=== PATIENT | female | born 1945 | race Caucasian/White ===

== ENCOUNTER 2019-07-12 12:20 | Inpatient (IN) | payer MEDICARE, MEDICAID ==
[~2019-07-12] VITALS: Ht 157.5 cm; Wt 65.3 kg
[2019-07-12 12:25] VITALS: BP 110/57
--- NOTE | 2019-07-12 12:32 | NUR ---
ED Nurse Note: Patient brought into ED from home by ambulance from [facility] due to WBC of 22.74 and right lower extremity cellulitis. per EMS, patient started on doxycycline yesterday. patient is alert awake, shouting and not cooperative at the moment. patient changed into a hospital gown, patient on a air sampling and monitoring.
[2019-07-12] MEDS ORDERED: LORazepam Inj 2mg/ml 1ml IV ONE (12:45)
[2019-07-12] MEDS ORDERED: Haloperidol 5mg/ml Inj IM ONE (12:45)
--- NOTE | 2019-07-12 12:49 | Emergency Room Report ---
History of Present Illness General Chief Complaint: Skin Rash/Abscess Source: Patient, Medical Record, EMS Present Illness HPI Patient is a 74-year-old female past medical history of cellulitis of the left lower leg, gait abnormalities, cognitive communication deficit, COPD, heart failure, hypertension, diabetes, Parkinson's, hyperlipidemia, arthritis, GERD, anemia, paranoid schizophrenia, anxiety, pseudobulbar affect, osteoporosis and chronic kidney disease who was brought from her correction for right lower extremity cellulitis and elevated white blood cell count. Patient is a poor historian and just keeps screaming that she is hungry. Unable to obtain further history at this time. COVID-19 risk:Travel to affect: No Allergies: Coded Allergies: BUPROPION (Verified Allergy, Unknown, 07/12/19) BUSPIRONE (Verified Allergy, Unknown, 07/12/19) FLUOXETINE (Verified Allergy, Unknown, 07/12/19) LURASIDONE (Verified Allergy, Unknown, 07/12/19) Review of Systems All Other Systems: limited Physical Exam Vital Signs Date Time Temp Pulse Resp B/P (MAP) Pulse Ox O2 Delivery O2 Flow Rate FiO2 07/12/19 12:25 97.9 76 16 110/57 (74) 95 Room Air Sp02 EP Interpretation: reviewed, normal General Appearance: other - Repeatedly screaming she is able to answer some questions but states states that she is hungry Head: normocephalic, atraumatic Eyes: bilateral eye normal inspection, bilateral eye PERRL ENT: hearing grossly normal, normal pharynx, no angioedema, normal voice Neck: full range of motion, supple/symm/no masses Cardiovascular #1: regular rate, rhythm, no edema Gastrointestinal: normal bowel sounds, non tender, soft, non-distended, no guarding, no rebound Rectal: deferred Musculoskeletal: other - Right mid anterior lower leg to openings with purulent discharge mild erythema around it and tenderness to palpation right calf greater than left calf Neurologic: alert, agency manager III-XII nml as tested Psychiatric: anxious, other - Abnormal mood and affect Skin: no rash Lymphatic: no adenopathy Medical Decision Making Diagnostic Impression: Primary Impression: Cellulitis Additional Impressions: Anemia New onset a-fib ER Course While in the emergency department the patient's heart rhythm change. It appears that she is gone into atrial fibrillation. Patient has no documented history of atrial fibrillation. I have ordered for 325 mg of aspirin as well as 10 mg of IV Cardizem. Patient cultured in the ER. Ultrasound negative for DVT. Patient started on vancomycin and cefepime for her right lower extremity cellulitis. Patient has white count of 21,000 with a normal lactate. Laboratory Tests Test 07/12/19 12:33 07/12/19 13:11 Magnesium Level 2.1 MG/DL (1.8-2.4) 2.1 MG/DL (1.8-2.4) White Blood Count 21.6 K/UL (4.8-10.8) H Red Blood Count 3.62 M/UL (4.20-5.40) L Hemoglobin 10.0 G/DL (12.0-16.0) L Hematocrit 30.6 % (37.0-47.0) L Mean Corpuscular Volume 85 FL (80-99) Mean Corpuscular Hemoglobin 27.6 PG (27.0-31.0) Mean Corpuscular Hemoglobin Concent 32.6 G/DL (32.0-36.0) Red Cell Distribution Width 14.0 % (11.6-14.8) Platelet Count 367 K/UL (150-450) Mean Platelet Volume 5.7 FL (6.5-10.1) L Neutrophils (%) (Auto) % (45.0-75.0) Lymphocytes (%) (Auto) % (20.0-45.0) Monocytes (%) (Auto) % (1.0-10.0) Eosinophils (%) (Auto) % (0.0-3.0) Basophils (%) (Auto) % (0.0-2.0) Differential Total Cells Counted 100 Neutrophils % (Manual) 84 % (45-75) H Lymphocytes % (Manual) 11 % (20-45) L Monocytes % (Manual) 5 % (1-10) Eosinophils % (Manual) 0 % (0-3) Basophils % (Manual) 0 % (0-2) Band Neutrophils 0 % (0-8) Platelet Estimate Adequate Platelet Morphology Normal Erythrocyte Sedimentation Rate Pending Prothrombin Time 10.0 SEC (9.30-11.50) Prothrombin Time INR 0.9 (0.9-1.1) Activated Partial Thromboplast Time 30 SEC (23-33) Sodium Level 139 MMOL/L (136-145) Potassium Level 3.9 MMOL/L (3.5-5.1) Chloride Level 100 MMOL/L (98-107) Carbon Dioxide Level 31 MMOL/L (21-32) Anion Gap 8 mmol/L (5-15) Blood Urea Nitrogen 14 mg/dL (7-18) Creatinine 0.7 MG/DL (0.55-1.30) Estimated Glomerular Filtration Rate > 60 mL/min (>60) Glucose Level 114 MG/DL (74-106) H Lactic Acid Level 0.90 mmol/L (0.4-2.0) Calcium Level 9.2 MG/DL (8.5-10.1) Total Bilirubin 0.3 MG/DL (0.2-1.0) Aspartate Amino Transferase (AST) 16 U/L (15-37) Alanine Aminotransferase (ALT) 16 U/L (12-78) Alkaline Phosphatase 83 U/L (46-116) Total Creatine Kinase 102 U/L (26-308) Creatine Kinase MB 2.2 NG/ML (0.0-3.6) Creatine Kinase MB Relative Index 2.1 C-Reactive Protein, Quantitative Pending Total Protein 7.9 G/DL (6.4-8.2) Albumin 3.1 G/DL (3.4-5.0) L Globulin 4.8 g/dL Albumin/Globulin Ratio 0.6 (1.0-2.7) L EKG Diagnostic Results EKG Time: 13:51 EP Interpretation: MD Cami Rate: normal Rhythm: NSR ST Segments: no acute changes ASA given to the pt in ED: No Rhythm Strip Diag. Results Rhythm Strip Time: 13:51 EP Interpretation: yes - MD Cami Rate: 122 Rhythm: no PVC's, no ectopy, other - afrib rvr Last Vital Signs Date Time Temp Pulse Resp B/P (MAP) Pulse Ox O2 Delivery O2 Flow Rate FiO2 07/12/19 12:25 97.9 76 16 110/57 (74) 95 Room Air Disposition: ADMITTED INPATIENT Condition: Critical Physician Consult: Dr. Julissa Booth to admit to Telemetry Jordyn Almanza M.D. Jul 12, 2019 12:49
[2019-07-12] MEDS ORDERED: Vancomycin 1.25gm/NS Premix 275 ML IVPB SCH (13:00)
--- NOTE | 2019-07-12 13:27 | NUR ---
ED Nurse Note: U/S at bedside.
[2019-07-12 13:30] LABS: HEMATOCRIT 30.6 % (37.0-47.0); MEAN CORPUSCULAR VOLUME 85 FL (80-99); PLATELET COUNT 367 K/UL (150-450); RED BLOOD COUNT 3.62 M/UL (4.20-5.40); WHITE BLOOD COUNT 21.6 K/UL (4.8-10.8)
[2019-07-12] MEDS ORDERED: Vancomycin 1.25 GM in NS 275 ML IVPB ONE (13:30)
[2019-07-12 13:41] LABS: ANION GAP 8 mmol/L (5-15); BLOOD UREA NITROGEN 14 mg/dL (7-18); CALCIUM 9.2 MG/DL (8.5-10.1); CARBON DIOXIDE 31 MMOL/L (21-32); CHLORIDE 100 MMOL/L (98-107); CREATININE 0.7 MG/DL (0.55-1.30); POTASSIUM 3.9 MMOL/L (3.5-5.1); SODIUM 139 MMOL/L (136-145)
[2019-07-12 13:44] LABS: INR 0.9 (0.9-1.1)
[2019-07-12] MEDS ORDERED: dilTIAZem HCl 25mg/5ml Inj IVP ONE (13:45)
--- NOTE | 2019-07-12 13:50 | Diagnostic Imaging Report ---
Indication: Shortness of breath Technique: One view of the chest Comparison: None Findings: There is mild interstitial prominence bilaterally. There is central bronchial wall thickening. The heart size is normal. There is some atelectasis at the left lung base. The heart size is normal. No focal airspace consolidation. No definite effusions. Impression: Very mild interstitial prominence and central bronchial wall thickening, acuity indeterminate. Suspect on the basis of senescent/chronic changes. However, possibility of infectious interstitial disease or pulmonary edema should also be considered Negative for infiltrate
[2019-07-12 13:56] LABS: ALANINE AMINOTRANSFERASE 16 U/L (12-78); ALBUMIN 3.1 G/DL (3.4-5.0); ALBUMIN/GLOBULIN RATIO 0.6 (1.0-2.7); ALKALINE PHOSPHATASE 83 U/L (46-116); ASPARTATE AMINO TRANSFERASE 16 U/L (15-37); BILIRUBIN,TOTAL 0.3 MG/DL (0.2-1.0); CKMB 2.2 NG/ML (0.0-3.6); CREATINE KINASE 102 U/L (26-308)
[2019-07-12] MEDS ORDERED: Cefepime HCl 2 GM in D5W 55 ML IVPB ONE (14:00)
[2019-07-12] MEDS ORDERED: Cefepime 2gm ONE (14:44)
--- NOTE | 2019-07-12 15:14 | Infectious Diseases Prog Note ---
Subjective Allergies: Coded Allergies: BUPROPION (Verified Allergy, Unknown, 07/12/19) BUSPIRONE (Verified Allergy, Unknown, 07/12/19) FLUOXETINE (Verified Allergy, Unknown, 07/12/19) LURASIDONE (Verified Allergy, Unknown, 07/12/19) Subjective # [id number] Objective Vital Signs Last 24 Hour Vital Signs Date Time Temp Pulse Resp B/P (MAP) Pulse Ox O2 Delivery O2 Flow Rate FiO2 07/12/19 13:56 116 115/62 07/12/19 12:25 97.9 76 16 110/57 (74) 95 Room Air 07/12/19 12:25 97.9 76 16 110/57 95 Room Air Height (Feet): 5 Height (Inches): 2.00 Weight (Pounds): 150 Laboratory Tests Test 07/12/19 12:33 07/12/19 13:11 Magnesium Level 2.1 MG/DL (1.8-2.4) 2.1 MG/DL (1.8-2.4) White Blood Count 21.6 K/UL (4.8-10.8) H Red Blood Count 3.62 M/UL (4.20-5.40) L Hemoglobin 10.0 G/DL (12.0-16.0) L Hematocrit 30.6 % (37.0-47.0) L Mean Corpuscular Volume 85 FL (80-99) Mean Corpuscular Hemoglobin 27.6 PG (27.0-31.0) Mean Corpuscular Hemoglobin Concent 32.6 G/DL (32.0-36.0) Red Cell Distribution Width 14.0 % (11.6-14.8) Platelet Count 367 K/UL (150-450) Mean Platelet Volume 5.7 FL (6.5-10.1) L Neutrophils (%) (Auto) % (45.0-75.0) Lymphocytes (%) (Auto) % (20.0-45.0) Monocytes (%) (Auto) % (1.0-10.0) Eosinophils (%) (Auto) % (0.0-3.0) Basophils (%) (Auto) % (0.0-2.0) Differential Total Cells Counted 100 Neutrophils % (Manual) 84 % (45-75) H Lymphocytes % (Manual) 11 % (20-45) L Monocytes % (Manual) 5 % (1-10) Eosinophils % (Manual) 0 % (0-3) Basophils % (Manual) 0 % (0-2) Band Neutrophils 0 % (0-8) Platelet Estimate Adequate Platelet Morphology Normal Erythrocyte Sedimentation Rate 65 MM/HR (0-30) H Prothrombin Time 10.0 SEC (9.30-11.50) Prothromb Time International Ratio 0.9 (0.9-1.1) Activated Partial Thromboplast Time 30 SEC (23-33) Sodium Level 139 MMOL/L (136-145) Potassium Level 3.9 MMOL/L (3.5-5.1) Chloride Level 100 MMOL/L (98-107) Carbon Dioxide Level 31 MMOL/L (21-32) Anion Gap 8 mmol/L (5-15) Blood Urea Nitrogen 14 mg/dL (7-18) Creatinine 0.7 MG/DL (0.55-1.30) Estimat Glomerular Filtration Rate > 60 mL/min (>60) Glucose Level 114 MG/DL (74-106) H Lactic Acid Level 0.90 mmol/L (0.4-2.0) Calcium Level 9.2 MG/DL (8.5-10.1) Total Bilirubin 0.3 MG/DL (0.2-1.0) Aspartate Amino Transf (AST/SGOT) 16 U/L (15-37) Alanine Aminotransferase (ALT/SGPT) 16 U/L (12-78) Alkaline Phosphatase 83 U/L (46-116) Total Creatine Kinase 102 U/L (26-308) Creatine Kinase MB 2.2 NG/ML (0.0-3.6) Creatine Kinase MB Relative Index 2.1 C-Reactive Protein, Quantitative 32.6 mg/dL (0.00-0.90) H Total Protein 7.9 G/DL (6.4-8.2) Albumin 3.1 G/DL (3.4-5.0) L Globulin 4.8 g/dL Albumin/Globulin Ratio 0.6 (1.0-2.7) L Ryan Bryan MD Jul 12, 2019 15:14
--- NOTE | 2019-07-12 15:28 | Diagnostic Imaging Report ---
Indication: Leg pain and cellulitis Technique: Grayscale and duplex images of the right lower extremity veins Comparison: None Findings: On the right, grayscale and duplex images demonstrate no evidence of intraluminal thrombus. Normal phasic Doppler waveforms, demonstrating normal augmentation response and no evidence of valvular insufficiency. Greater saphenous vein(s) and tibial veins are patent. Normal compressibility. Impression: Negative for evidence of lower extremity deep venous thrombosis on the right
[2019-07-12] MEDS ORDERED: DOCUSATE SODIU250 MG ORAL (15:35)
[2019-07-12] MEDS ORDERED: FERROUS SULFAT325 MG ORAL (15:35)
[2019-07-12] MEDS ORDERED: FAMOTIDINE20 MG ORAL (15:35)
[2019-07-12] MEDS ORDERED: SENOKOT8.6 MG PO (15:35)
[2019-07-12] MEDS ORDERED: LOPRESSOR HCT1 EAC3 ORAL (15:35)
[2019-07-12] MEDS ORDERED: CATAPRES0.1 MG ORAL (15:35)
[2019-07-12] MEDS ORDERED: NEURONTIN100 MG ORAL (15:35)
[2019-07-12] MEDS ORDERED: NUEDEXTA 20-101 EAC1 PO (15:35)
[2019-07-12] MEDS ORDERED: BENZTROPINE MESY1 MG ORAL (15:35)
[2019-07-12] MEDS ORDERED: ECOTRIN81 MG PO (15:35)
[2019-07-12] MEDS ORDERED: VITAMIN D3 COM1 EACH PO (15:35)
[2019-07-12] MEDS ORDERED: ATIVAN1 MG ORAL (15:35)
[2019-07-12] MEDS ORDERED: MULTIVITAMINS1 EAC8 ORAL (15:35)
[2019-07-12] MEDS ORDERED: SYMBICORT 16010.2 G1 IH (15:35)
[2019-07-12] MEDS ORDERED: RISPERDAL2 MG ORAL (15:35)
[2019-07-12 15:36] VITALS: BP 125/72
--- NOTE | 2019-07-12 16:00 | NUR ---
ED Nurse Note: patient transferred to 2E on ACLS protocol with all of her belongings, report given to Afsoileana RN, endorsed all plan of care to Afbailee RN.
[2019-07-12 16:20] VITALS: BP 115/74
[2019-07-12] MEDS ORDERED: Morphine Sulfate 2mg/ml Inj(IV/IM USE ONLY) IVP PRN (17:00)
--- NOTE | 2019-07-12 17:00 | History and Physical Report ---
DATE OF ADMISSION: 07/12/2019 TIME SEEN: 2 p.m. CONSULTANTS: 1. Derek Salcido M.D. 2. Ryan Byran M.D. CHIEF COMPLAINT: Right lower extremity cellulitis, edema, sepsis, leukocytosis, and AFib. BRIEF HISTORY: This is a 74-year-old female from [facility], presented with above-mentioned diagnosis, over the last two to three days got worse, came into, was found in AFib. Apparently, new onset. The patient was given medications and currently in the ER, awaiting [facility]. Currently, slightly anxious in bed in the ER gurney, oriented x2, in no acute distress. PAST MEDICAL HISTORY: Includes lower extremity cellulitis, anemia. PAST SURGICAL HISTORY: Hip. MEDICATIONS: Include cefepime, aspirin, diltiazem, vancomycin, lorazepam, and Haldol. ALLERGIES: , buspirone, fluoxetine, lurasidone. SOCIAL HISTORY: No smoking. No alcohol. No intravenous drug abuse. FAMILY HISTORY: Noncontributory. PHYSICAL EXAMINATION: GENERAL: Calm in bed, oriented x2, in no acute distress. VITAL SIGNS: Temperature 97 degrees, pulse 116, respirations 16, blood pressure 110/57. CARDIOVASCULAR: Distant, irregular without murmur. LUNGS: Distant, clear. ABDOMEN: Bowel sounds positive. Nontender. Nondistended. EXTREMITIES: No cyanosis, clubbing, 1+ edema. Right lower extremity slightly warm, slightly red. NEUROLOGIC: The patient move all extremities, slightly weak. LABORATORY AND DIAGNOSTIC DATA: Labs at this time show white count 21, hemoglobin and hematocrit 10/30, platelets 367. BMP shows glucose 114, otherwise normal. Albumin 3.1. Otherwise, BMP is normal. INR is 0.9. PTT 30. ASSESSMENT: 1. Right lower extremity cellulitis. 2. Sepsis. 3. Leukocytosis. 4. AFib. 5. Malnutrition. 6. Anemia. PLAN: 1. Wound care. 2. Antibiotics per Infectious Disease. 3. Resume home medications. 4. Cardiology followup. 5. Dietary followup. 6. PT and dietary evaluation. 7. CBC and BMP in the morning. Guy Booth D.O. DR: XIMENA JOB#: [id number] CC:
[2019-07-12] MEDS: LORazepam 1mg tab ORAL PRN (17:10)
[2019-07-12] MEDS ORDERED: Haloperidol 5mg/ml Inj IM SCH (17:30)
[2019-07-12] MEDS ORDERED: DiphenhydrAMINE 50mg/ml Inj IM SCH (17:30)
[2019-07-12] MEDS: cefTRIAXone 2 GM in NS 55 ML IVPB SCH (17:30)
--- NOTE | 2019-07-12 17:40 | NUR ---
NURSE NOTES: Md Booth notified of admission and the pt condition, he stated to call Md Rut Warren for any psychiatric issues. md Warren was notified of pt behavior. he placed orders
[2019-07-12] MEDS: Benztropine 1mg tab ORAL SCH (18:23)
[2019-07-12] MEDS ORDERED: LORazepam Inj 2mg/ml 1ml IV SCH (19:00)
--- NOTE | 2019-07-12 19:00 | NUR ---
NURSE NOTES: Received pt from [facility] at 1600. pt is awake and very agitated and is screaming all the time, pt pulled out iv access and try to take off cardiac monitoring. Dr STACY is aware. all admission assessments and instructions done, R leg is warm and swollen, pt has redness under bi breast, and several skin tears R and L hand, took pictures and uploaded. new IV access LFA 22G SL and wrapped with Kerlix. pt consumed 30% dinner and tolerated well. Dr STACY is aware about A FIB, WBC 21.6, cellulitis, agitation and screaming, and other lab results and V/S, all orders noted and carried out. RN verified with [facility] about all home meds and diet and past medical history. all needs attended, bed is locked and is in the lowest position, call light within easy reach. will continue to monitor.
--- NOTE | 2019-07-12 19:43 | NUR ---
HAND-OFF: Report given to LEXY ANTHONY.
--- NOTE | 2019-07-12 19:44 | NUR ---
NURSE NOTES: Received patient from [facility]. Patient screaming. Bed in lowest position. Call light placed within reach. will continue to monitor.
[2019-07-12 20:00] VITALS: BP 112/75
[2019-07-12] MEDS: OLANZapine 10mg tab ORAL SCH (20:34)
[2019-07-12] MEDS: Sennosides 8.6mg tab ORAL SCH (20:34)
[2019-07-12] MEDS: Heparin 5000 units/ml inj SUBQ SCH (20:39)
--- NOTE | 2019-07-12 22:08 | NUR ---
NURSE NOTES: Called and spoke with Dr. Booth regarding patient's request for sleeping pills. MD ordered Ambien 5mg PO. will input order. Will continue to monitor.
--- NOTE | 2019-07-12 22:15 | Consultation ---
DATE OF CONSULTATION: 07/12/2019 CONSULTING PHYSICIAN: Ryan Bryan M.D. REFERRING PHYSICIAN: Guy Booth D.O. REASON FOR CONSULTATION: Evaluation of the patient for sepsis, leukocytosis, lower extremity cellulitis. HISTORY OF PRESENT ILLNESS: The patient is a 74-year-old female, poor historian, who was transferred to this medical center due to lower extremity cellulitis. Infectious Disease consultation has been requested for further evaluation of the patient and antibiotic management. The patient has also white blood cells 21.6. PAST MEDICAL HISTORY: 1. History of COPD. 2. Heart failure. 3. Hypertension. 4. Diabetes. 5. Parkinson disease. 6. Hyperlipidemia. 7. Arthritis. 8. GERD. 9. Anemia. 10. Primary schizophrenia. 11. Anxiety. 12. Osteoporosis. 13. CKD. FAMILY HISTORY: Not contributing. SOCIAL HISTORY: The patient lives in a assisted. REVIEW OF SYSTEMS: Limited and most of the history as mentioned above. ALLERGIES: No allergies to antibiotics. PHYSICAL EXAMINATION: VITAL SIGNS: Temperature 97.9, blood pressure 110/57, pulse 116, and respiratory rate 18. HEENT: No pale conjunctivae. No scleral icterus. NECK: No lymphadenopathy. CHEST: Clear. HEART: S1 and S2. ABDOMEN: Soft, nontender. EXTREMITIES: The patient has lower extremity swelling, edema, and erythema. NEUROLOGIC: Awake. The patient is agitated. LABORATORY AND DIAGNOSTIC DATA: WBC 21.6, hemoglobin 10, platelets 367,000. BUN 14, creatinine 0.7. ALT, AST, and alkaline phosphatase unremarkable. Chest x-ray, mild interstitial infiltrates, central bronchial wall thickening, chronic changes. ASSESSMENT: The patient is a 74-year-old female with: 1. Leukocytosis. 2. Sepsis. 3. Right lower extremity cellulitis. 4. Rule out bacteremia. 5. Rule out probable urinary tract infection. PLAN: 1. Start the patient on IV vancomycin and Rocephin. 2. CBC and BMP. 3. Monitor cultures (blood, urine). 4. Based on the patient's clinical course and labs, we will do further recommendation. Thank you, Dr. Guy Booth, for allowing me to participate in the care of this patient. I will follow the patient with you during this hospitalization. Ryan Bryan M.D. DR: KASIA JOB#: [id number] CC:
[2019-07-12] MEDS: Zolpidem 5mg tab ORAL PRN (22:29)
[2019-07-13] VITALS: BP 145/83
[2019-07-13 04:00] VITALS: BP 108/61
--- NOTE | 2019-07-13 07:30 | NUR ---
NURSE NOTES: Received report from [facility]. Observed pt sleeping, breathing even and unlabored in 2L NC. No s/sx of acute distress. IV site patent and asymptomatic. Bed on lowest position, call light within reach. Will continue plan of care.
--- NOTE | 2019-07-13 07:35 | NUR ---
HAND-OFF: Report given to LEXY Hernandez. Patient stable. Addendum: 07/13/19 at 0738 by Sara Shea RN wrong medical record
--- NOTE | 2019-07-13 07:43 | NUR ---
HAND-OFF: Report given to LEXY Cruz. Patient stable.
[2019-07-13 08:00] VITALS: BP 112/65
[2019-07-13 08:36] LABS: BASOPHILS % (AUTO) 0.9 % (0.0-2.0); EOSINOPHILS % (AUTO) 2.6 % (0.0-3.0); HEMATOCRIT 31.8 % (37.0-47.0); HEMOGLOBIN 10.4 G/DL (12.0-16.0); LYMPHOCYTES % (AUTO) 13.9 % (20.0-45.0); MEAN CORPUSCULAR VOLUME 85 FL (80-99); MONOCYTES % (AUTO) 5.9 % (1.0-10.0); NEUTROPHILS % (AUTO) 76.8 % (45.0-75.0); PLATELET COUNT 378 K/UL (150-450); RED BLOOD COUNT 3.75 M/UL (4.20-5.40); WHITE BLOOD COUNT 11.8 K/UL (4.8-10.8)
[2019-07-13 08:49] LABS: ANION GAP 6 mmol/L (5-15); BLOOD UREA NITROGEN 11 mg/dL (7-18); CALCIUM 9.3 MG/DL (8.5-10.1); CARBON DIOXIDE 32 MMOL/L (21-32); CHLORIDE 107 MMOL/L (98-107); CREATININE 0.7 MG/DL (0.55-1.30); SODIUM 145 MMOL/L (136-145)
--- NOTE | 2019-07-13 09:15 | NUR ---
PT NOTE Attempted to see patient for PT evaluation. Patient sleeping, opens eyes briefly then closes them again. Patient unable to participate with PT at this time, will re-attempt later as schedule permits. Nancy PUGH notified.
[2019-07-13] MEDS: Multivitamin w/Minerals tab ORAL SCH (09:52)
[2019-07-13] MEDS: Benztropine 1mg tab ORAL SCH ×2 (09:52→17:38)
[2019-07-13] MEDS: Docusate 250mg cap ORAL SCH (09:53)
[2019-07-13] MEDS: Aspirin EC 81mg tab ORAL SCH (09:53)
[2019-07-13] MEDS: Nuedexta Capsule 20/10mg ORAL SCH (09:53)
[2019-07-13] MEDS: Heparin 5000 units/ml inj SUBQ SCH ×2 (09:54→20:59)
--- NOTE | 2019-07-13 10:52 | Cardiac Electrophysiology PN ---
Subjective Subjective [id number] Objective Last 24 Hour Vital Signs Date Time Temp Pulse Resp B/P (MAP) Pulse Ox O2 Delivery O2 Flow Rate FiO2 07/13/19 08:31 71 18 96 Room Air 21 07/13/19 08:29 71 18 96 21 07/13/19 08:00 96.4 68 18 112/65 (81) 96 07/13/19 04:00 81 07/13/19 04:00 97.3 83 16 108/61 (77) 89 07/13/19 00:00 96.4 91 19 145/83 (103) 96 07/12/19 22:02 96 21 07/12/19 22:02 96 21 07/12/19 20:49 Room Air 07/12/19 20:00 97.3 106 17 112/75 (87) 100 07/12/19 20:00 110 07/12/19 17:45 111 07/12/19 16:30 Room Air 07/12/19 16:20 97.5 102 18 115/74 (88) 98 07/12/19 16:00 97.9 104 15 125/72 96 Room Air 07/12/19 15:36 97.9 104 15 125/72 96 Room Air 07/12/19 13:56 116 115/62 07/12/19 12:25 97.9 76 16 110/57 (74) 95 Room Air 07/12/19 12:25 97.9 76 16 110/57 95 Room Air Intake and Output 07/12/19 07/13/19 19:00 07:00 Intake Total 55 ml Balance 55 ml Intake IV Total 55 ml # Voids 6 Laboratory Tests Test 07/12/19 12:33 07/12/19 13:11 07/12/19 13:38 07/13/19 08:20 Magnesium Level 2.1 MG/DL (1.8-2.4) 2.1 MG/DL (1.8-2.4) White Blood Count 21.6 K/UL (4.8-10.8) H 11.8 K/UL (4.8-10.8) H Red Blood Count 3.62 M/UL (4.20-5.40) L 3.75 M/UL (4.20-5.40) L Hemoglobin 10.0 G/DL (12.0-16.0) L 10.4 G/DL (12.0-16.0) L Hematocrit 30.6 % (37.0-47.0) L 31.8 % (37.0-47.0) L Mean Corpuscular Volume 85 FL (80-99) 85 FL (80-99) Mean Corpuscular Hemoglobin 27.6 PG (27.0-31.0) 27.6 PG (27.0-31.0) Mean Corpuscular Hemoglobin Concent 32.6 G/DL (32.0-36.0) 32.6 G/DL (32.0-36.0) Red Cell Distribution Width 14.0 % (11.6-14.8) 14.0 % (11.6-14.8) Platelet Count 367 K/UL (150-450) 378 K/UL (150-450) Mean Platelet Volume 5.7 FL (6.5-10.1) L 5.8 FL (6.5-10.1) L Neutrophils (%) (Auto) % (45.0-75.0) 76.8 % (45.0-75.0) H Lymphocytes (%) (Auto) % (20.0-45.0) 13.9 % (20.0-45.0) L Monocytes (%) (Auto) % (1.0-10.0) 5.9 % (1.0-10.0) Eosinophils (%) (Auto) % (0.0-3.0) 2.6 % (0.0-3.0) Basophils (%) (Auto) % (0.0-2.0) 0.9 % (0.0-2.0) Differential Total Cells Counted 100 Neutrophils % (Manual) 84 % (45-75) H Lymphocytes % (Manual) 11 % (20-45) L Monocytes % (Manual) 5 % (1-10) Eosinophils % (Manual) 0 % (0-3) Basophils % (Manual) 0 % (0-2) Band Neutrophils 0 % (0-8) Platelet Estimate Adequate Platelet Morphology Normal Erythrocyte Sedimentation Rate 65 MM/HR (0-30) H Prothrombin Time 10.0 SEC (9.30-11.50) Prothromb Time International Ratio 0.9 (0.9-1.1) Activated Partial Thromboplast Time 30 SEC (23-33) Sodium Level 139 MMOL/L (136-145) 145 MMOL/L (136-145) Potassium Level 3.9 MMOL/L (3.5-5.1) 4.0 MMOL/L (3.5-5.1) Chloride Level 100 MMOL/L (98-107) 107 MMOL/L (98-107) Carbon Dioxide Level 31 MMOL/L (21-32) 32 MMOL/L (21-32) Anion Gap 8 mmol/L (5-15) 6 mmol/L (5-15) Blood Urea Nitrogen 14 mg/dL (7-18) 11 mg/dL (7-18) Creatinine 0.7 MG/DL (0.55-1.30) 0.7 MG/DL (0.55-1.30) Estimat Glomerular Filtration Rate > 60 mL/min (>60) > 60 mL/min (>60) Glucose Level 114 MG/DL (74-106) H 99 MG/DL (74-106) Lactic Acid Level 0.90 mmol/L (0.4-2.0) Calcium Level 9.2 MG/DL (8.5-10.1) 9.3 MG/DL (8.5-10.1) Total Bilirubin 0.3 MG/DL (0.2-1.0) Aspartate Amino Transf (AST/SGOT) 16 U/L (15-37) Alanine Aminotransferase (ALT/SGPT) 16 U/L (12-78) Alkaline Phosphatase 83 U/L (46-116) Total Creatine Kinase 102 U/L (26-308) Creatine Kinase MB 2.2 NG/ML (0.0-3.6) Creatine Kinase MB Relative Index 2.1 C-Reactive Protein, Quantitative 32.6 mg/dL (0.00-0.90) H Total Protein 7.9 G/DL (6.4-8.2) Albumin 3.1 G/DL (3.4-5.0) L Globulin 4.8 g/dL Albumin/Globulin Ratio 0.6 (1.0-2.7) L Troponin I 0.000 ng/mL (0.000-0.056) Microbiology Date/Time Source Procedure Growth Status 07/12/19 15:16 Rectum Received Derek Salcido MD Jul 13, 2019 10:52
--- NOTE | 2019-07-13 11:31 | Infectious Diseases Prog Note ---
Assessment/Plan Assessment/Plan ASSESSMENT: The patient is a 74-year-old female with: Leukocytosis, sp SP Sepsis. Right lower extremity cellulitis. Rule out bacteremia. Rule out probable urinary tract infection. History of COPD. Heart failure. Hypertension. Diabetes. Parkinson disease. Hyperlipidemia. Arthritis. GERD. Anemia. Primary schizophrenia. Anxiety. Osteoporosis. PLAN: Cont patient on IV vancomycin and Rocephin # 2 CBC and BMP. Monitor cultures (blood, urine). Subjective Allergies: Coded Allergies: BUPROPION (Verified Allergy, Unknown, 07/12/19) BUSPIRONE (Verified Allergy, Unknown, 07/12/19) FLUOXETINE (Verified Allergy, Unknown, 07/12/19) LURASIDONE (Verified Allergy, Unknown, 07/12/19) Subjective Comfortable Objective Vital Signs Last 24 Hour Vital Signs Date Time Temp Pulse Resp B/P (MAP) Pulse Ox O2 Delivery O2 Flow Rate FiO2 07/13/19 08:31 71 18 96 Room Air 21 07/13/19 08:29 71 18 96 21 07/13/19 08:00 96.4 68 18 112/65 (81) 96 07/13/19 04:00 81 07/13/19 04:00 97.3 83 16 108/61 (77) 89 07/13/19 00:00 96.4 91 19 145/83 (103) 96 07/12/19 22:02 96 21 07/12/19 22:02 96 21 07/12/19 20:49 Room Air 07/12/19 20:00 97.3 106 17 112/75 (87) 100 07/12/19 20:00 110 07/12/19 17:45 111 07/12/19 16:30 Room Air 07/12/19 16:20 97.5 102 18 115/74 (88) 98 07/12/19 16:00 97.9 104 15 125/72 96 Room Air 07/12/19 15:36 97.9 104 15 125/72 96 Room Air 07/12/19 13:56 116 115/62 07/12/19 12:25 97.9 76 16 110/57 (74) 95 Room Air 07/12/19 12:25 97.9 76 16 110/57 95 Room Air Height (Feet): 5 Height (Inches): 2.00 Weight (Pounds): 144 HEENT: anicteric Respiratory/Chest: no respiratory distress, respiratory distress Cardiovascular: regular rhythm Abdomen: no organomegaly Microbiology Date/Time Source Procedure Growth Status 07/12/19 15:16 Rectum Received Laboratory Tests Test 07/12/19 12:33 07/12/19 13:11 07/12/19 13:38 07/13/19 08:20 Magnesium Level 2.1 MG/DL (1.8-2.4) 2.1 MG/DL (1.8-2.4) White Blood Count 21.6 K/UL (4.8-10.8) H 11.8 K/UL (4.8-10.8) H Red Blood Count 3.62 M/UL (4.20-5.40) L 3.75 M/UL (4.20-5.40) L Hemoglobin 10.0 G/DL (12.0-16.0) L 10.4 G/DL (12.0-16.0) L Hematocrit 30.6 % (37.0-47.0) L 31.8 % (37.0-47.0) L Mean Corpuscular Volume 85 FL (80-99) 85 FL (80-99) Mean Corpuscular Hemoglobin 27.6 PG (27.0-31.0) 27.6 PG (27.0-31.0) Mean Corpuscular Hemoglobin Concent 32.6 G/DL (32.0-36.0) 32.6 G/DL (32.0-36.0) Red Cell Distribution Width 14.0 % (11.6-14.8) 14.0 % (11.6-14.8) Platelet Count 367 K/UL (150-450) 378 K/UL (150-450) Mean Platelet Volume 5.7 FL (6.5-10.1) L 5.8 FL (6.5-10.1) L Neutrophils (%) (Auto) % (45.0-75.0) 76.8 % (45.0-75.0) H Lymphocytes (%) (Auto) % (20.0-45.0) 13.9 % (20.0-45.0) L Monocytes (%) (Auto) % (1.0-10.0) 5.9 % (1.0-10.0) Eosinophils (%) (Auto) % (0.0-3.0) 2.6 % (0.0-3.0) Basophils (%) (Auto) % (0.0-2.0) 0.9 % (0.0-2.0) Differential Total Cells Counted 100 Neutrophils % (Manual) 84 % (45-75) H Lymphocytes % (Manual) 11 % (20-45) L Monocytes % (Manual) 5 % (1-10) Eosinophils % (Manual) 0 % (0-3) Basophils % (Manual) 0 % (0-2) Band Neutrophils 0 % (0-8) Platelet Estimate Adequate Platelet Morphology Normal Erythrocyte Sedimentation Rate 65 MM/HR (0-30) H Prothrombin Time 10.0 SEC (9.30-11.50) Prothromb Time International Ratio 0.9 (0.9-1.1) Activated Partial Thromboplast Time 30 SEC (23-33) Sodium Level 139 MMOL/L (136-145) 145 MMOL/L (136-145) Potassium Level 3.9 MMOL/L (3.5-5.1) 4.0 MMOL/L (3.5-5.1) Chloride Level 100 MMOL/L (98-107) 107 MMOL/L (98-107) Carbon Dioxide Level 31 MMOL/L (21-32) 32 MMOL/L (21-32) Anion Gap 8 mmol/L (5-15) 6 mmol/L (5-15) Blood Urea Nitrogen 14 mg/dL (7-18) 11 mg/dL (7-18) Creatinine 0.7 MG/DL (0.55-1.30) 0.7 MG/DL (0.55-1.30) Estimat Glomerular Filtration Rate > 60 mL/min (>60) > 60 mL/min (>60) Glucose Level 114 MG/DL (74-106) H 99 MG/DL (74-106) Lactic Acid Level 0.90 mmol/L (0.4-2.0) Calcium Level 9.2 MG/DL (8.5-10.1) 9.3 MG/DL (8.5-10.1) Total Bilirubin 0.3 MG/DL (0.2-1.0) Aspartate Amino Transf (AST/SGOT) 16 U/L (15-37) Alanine Aminotransferase (ALT/SGPT) 16 U/L (12-78) Alkaline Phosphatase 83 U/L (46-116) Total Creatine Kinase 102 U/L (26-308) Creatine Kinase MB 2.2 NG/ML (0.0-3.6) Creatine Kinase MB Relative Index 2.1 C-Reactive Protein, Quantitative 32.6 mg/dL (0.00-0.90) H Total Protein 7.9 G/DL (6.4-8.2) Albumin 3.1 G/DL (3.4-5.0) L Globulin 4.8 g/dL Albumin/Globulin Ratio 0.6 (1.0-2.7) L Troponin I 0.000 ng/mL (0.000-0.056) Current Medications Medications (Trade) Dose Ordered Sig/Sundeep Route PRN Reason Start Time Stop Time Status Last Admin Dose Admin Aspirin (Ecotrin) 81 mg DAILY ORAL 07/13/19 09:00 08/27/19 08:59 07/13/19 09:53 Benztropine Mesylate (Cogentin) 1 mg BID ORAL 07/12/19 18:00 08/11/19 17:59 07/13/19 09:52 Budesonide/ Formoterol Fumarate (Symbicort 160/ 4.5) 1 puff BIDRT INH 07/12/19 22:00 10/10/19 21:59 07/13/19 08:30 Ceftriaxone Sodium 2 gm/ Sodium Chloride 55 ml @ 110 mls/hr Q24H IVPB 07/12/19 17:00 07/19/19 16:59 07/12/19 17:30 Clonidine HCl (Catapres Tab) 0.1 mg Q6H PRN ORAL SBP > 160mmHg 07/12/19 17:00 10/10/19 16:59 Dextromethorphan/ Quinidine (Nuedexta Capsule) 1 cap DAILY ORAL 07/13/19 09:00 10/11/19 08:59 07/13/19 09:53 Docusate Sodium (Colace) 250 mg DAILY ORAL 07/13/19 09:00 08/12/19 08:59 07/13/19 09:53 Famotidine (Pepcid) 20 mg DAILY ORAL 07/13/19 09:00 10/11/19 08:59 07/13/19 09:53 Ferrous Sulfate (Feosol) 325 mg DAILY ORAL 07/13/19 09:00 10/11/19 08:59 07/13/19 09:53 Gabapentin (Neurontin) 100 mg Q8HR ORAL 07/12/19 22:00 08/11/19 21:59 07/12/19 22:29 Heparin Sodium (Porcine) (Heparin 5000 units/ml) 5,000 units EVERY 12 HOURS SUBQ 07/12/19 21:00 08/26/19 20:59 07/13/19 09:54 Lorazepam (Ativan) 1 mg Q6H PRN ORAL For Anxiety 07/12/19 17:00 07/19/19 16:59 07/12/19 17:10 Morphine Sulfate (Morphine Sulfate) 2 mg Q4H PRN IVP PAIN 4-10 07/12/19 17:00 07/19/19 16:59 Multivitamins Therapeutic (Therapeutic Multivitamin) 1 ea DAILY ORAL 07/13/19 09:00 08/12/19 08:59 07/13/19 09:52 Olanzapine (ZyPREXA) 5 mg DAILY ORAL 07/13/19 09:00 08/27/19 08:59 07/13/19 09:53 Olanzapine (ZyPREXA) 10 mg QHS ORAL 07/12/19 21:00 08/26/19 20:59 07/12/19 20:34 Risperidone (RisperDAL) 3 mg Q12HR ORAL 07/12/19 21:00 08/26/19 20:59 07/13/19 09:53 Sennosides (Senokot) 8.6 mg BEDTIME ORAL 07/12/19 21:00 08/11/19 20:59 07/12/19 20:34 Vancomycin HCl (Vanco rx to dose) 1 ea DAILY PRN MISC Per rx protocol 07/12/19 15:15 08/11/19 15:14 Vancomycin/Sodium Chloride 275 ml @ 183.333 mls/hr Q24H IVPB 07/13/19 13:00 07/18/19 12:59 Zolpidem Tartrate (Ambien) 5 mg HSPRN PRN ORAL Insomnia 07/12/19 22:15 07/19/19 22:14 07/12/19 22:29 Ryan Bryan MD Jul 13, 2019 11:31
[2019-07-13 12:00] VITALS: BP 104/53
--- NOTE | 2019-07-13 12:07 | NUR ---
RD ASSESSMENT & RECOMMENDATIONS SEE CARE ACTIVITY FOR COMPLETE ASSESSMENT DAILY ESTIMATED NEEDS: Needs based on Pulmonary 53.9kg abw 25-30 kcals/kg 7198-3856 total kcals 1-1.5 g protein/kg 54-81 g total protein 25-30 mL/kg 4609-8486 total fluid mLs NUTRITION DIAGNOSIS: Swallowing/ chewing difficulties r/t psych history/ poor dentition as evidenced by pt is edentulous, on ms finely chopped diet diet, variable po intake. CURRENT DIET: Low Na ms finely chopped PO DIET RECOMMENDATIONS: Regular diet/ texture per PERFORMANCE MAKEUP [employer]IST ADDITIONAL RECOMMENDATIONS: 1) Obtain a calibrated bed scale wt 2) Per MD h/o DM, rec accuchecks for eval, need for ssi 3) Add Ensure qd w/ current variable po intake 4) As able, hold psych meds/ sedatives w/ meal time
[2019-07-13] MEDS: Vancomycin 1.25gm/NS Premix IVPB SCH (13:18)
[2019-07-13] MEDS: dilTIAZem HCl 30mg tab ORAL SCH ×2 (14:00→22:29)
--- NOTE | 2019-07-13 14:52 | General Progress Note ---
Assessment/Plan Problem List: (1) Sepsis ICD Codes: A41.9 - Sepsis, unspecified organism SNOMED: 97072625 (2) Leukocytosis ICD Codes: D72.829 - Elevated white blood cell count, unspecified SNOMED: 636489611, 450193288 (3) New onset a-fib ICD Codes: I48.91 - Unspecified atrial fibrillation SNOMED: 27027275 (4) Cellulitis ICD Codes: L03.90 - Cellulitis, unspecified SNOMED: 387420715 (5) Anemia ICD Codes: D64.9 - Anemia, unspecified SNOMED: 560404950 Status: unchanged Assessment/Plan: o2pulm tx abx wound care cardio f/u cbc bmp am Subjective Constitutional: Reports: weakness Allergies: Coded Allergies: BUPROPION (Verified Allergy, Unknown, 07/12/19) BUSPIRONE (Verified Allergy, Unknown, 07/12/19) FLUOXETINE (Verified Allergy, Unknown, 07/12/19) LURASIDONE (Verified Allergy, Unknown, 07/12/19) All Systems: reviewed and negative except above Subjective o2nc sleepy in bed Objective Last 24 Hour Vital Signs Date Time Temp Pulse Resp B/P (MAP) Pulse Ox O2 Delivery O2 Flow Rate FiO2 07/13/19 12:00 96.3 74 18 104/53 (70) 98 07/13/19 11:41 68 07/13/19 09:00 Nasal Cannula 2.0 07/13/19 08:31 71 18 96 Room Air 21 07/13/19 08:29 71 18 96 21 07/13/19 08:00 96.4 68 18 112/65 (81) 96 07/13/19 07:43 69 07/13/19 04:00 81 07/13/19 04:00 97.3 83 16 108/61 (77) 89 07/13/19 00:00 96.4 91 19 145/83 (103) 96 07/12/19 22:02 96 21 07/12/19 22:02 96 21 07/12/19 20:49 Room Air 07/12/19 20:00 97.3 106 17 112/75 (87) 100 07/12/19 20:00 110 07/12/19 17:45 111 07/12/19 16:30 Room Air 3/17/20 16:20 97.5 102 18 115/74 (88) 98 07/12/19 16:00 97.9 104 15 125/72 96 Room Air 07/12/19 15:36 97.9 104 15 125/72 96 Room Air Intake and Output 07/12/19 07/13/19 19:00 07:00 Intake Total 55 ml Balance 55 ml Intake IV Total 55 ml # Voids 6 Laboratory Tests 07/13/19 08:20: White Blood Count 11.8H, Red Blood Count 3.75L, Hemoglobin 10.4L, Hematocrit 31.8L, Mean Corpuscular Volume 85, Mean Corpuscular Hemoglobin 27.6, Mean Corpuscular Hemoglobin Concent 32.6, Red Cell Distribution Width 14.0, Platelet Count 378, Mean Platelet Volume 5.8L, Neutrophils (%) (Auto) 76.8H, Lymphocytes (%) (Auto) 13.9L, Monocytes (%) (Auto) 5.9, Eosinophils (%) (Auto) 2.6, Basophils (%) (Auto) 0.9, Sodium Level 145, Potassium Level 4.0, Chloride Level 107, Carbon Dioxide Level 32, Anion Gap 6, Blood Urea Nitrogen 11, Creatinine 0.7, Estimat Glomerular Filtration Rate > 60, Glucose Level 99, Calcium Level 9.3 Height (Feet): 5 Height (Inches): 2.00 Weight (Pounds): 144 General Appearance: lethargic EENT: normal ENT inspection Neck: normal alignment Cardiovascular: normal peripheral pulses, normal rate, regular rhythm Respiratory/Chest: chest wall non-tender, lungs clear, normal breath sounds Abdomen: normal bowel sounds, non tender, soft Extremities: normal inspection Edema: no edema noted Arm (L), no edema noted Arm (R), no edema noted Leg (L), no edema noted Leg (R), no edema noted Pedal (L), no edema noted Pedal (R), no edema noted Generalized Neurologic: motor weakness Skin: normal pigmentation, warm/dry Objective r simth sl Guy Almodovar DO Jul 13, 2019 14:52
--- NOTE | 2019-07-13 15:00 | NUR ---
CASE MANAGEMENT:[facility] 74 [facility] O[facility] RLE R[facility]. ABSCESS. HAS BEEN ON DOXYCYCLINE SI: CELLULITIS.NEW ONSET AFIB. ANEMIA 97.9 76 16 110/57 95% ON RA WBC+21.6 H/H-10.0/30.6 IS:IV ATIVAN HALDOL IM IV VANCOMYCIN ASA PO IV CARDIZEM IV CEFEPIME BLOOD CX CHEST XRAY VENOUS DUPLEX : TO TELEMETRY UNIT
[2019-07-13 16:00] VITALS: BP 100/58
[2019-07-13] MEDS: LORazepam 1mg tab ORAL PRN (16:18)
--- NOTE | 2019-07-13 16:50 | NUR ---
NURSE NOTES:WOUND CARE NOTES:Pt presented on admission with MASD in folds of both breasts extending into both R and L axillae. Skin is grossly erythematous and moist. Mild odor noted. Abd folds are clean and dry. Multiple resolving skin tears that are dry and scabbed both upper extremities. Non-blanching erythema without induration sacrum. Dry scabbed wound noted just inferior to R knee . On lindsay R tibia is an elongated scabbed wound with surrounding erythema which extends to lindsay,lateral,posterior R tibia and distally into R foot.RLE and R foot slightly swollen and Skin temp is elevated. No odor or exudate noted from wound. Non-blanching erythema without fluctuance R and L heels. Tx.Plan: Wash both breasts with soap and water. Pat dry. Apply Light dusting of Phytoplex Antifungal powder Twice Daily. Apply Moisture Barrier Paste to Sacrum. Cover with Optifoam drsg. Change every 3 days and prn. Swab Wound R tibia with Betadine. Cover with Optifoam drsg Daily and prn. Apply Cavilon Skin Barrier to both heels. Cover each heel with Optifoam drsg. Change every 7 days and prn. Reposition at least every 2hours or as tolerated. Off-load heels with Pillow.
--- NOTE | 2019-07-13 17:30 | Consultation ---
DATE OF CONSULTATION: 07/13/2019 CARDIOLOGY CONSULTATION CONSULTING PHYSICIAN: Derek Salcido M.D. REFERRING PHYSICIAN: Guy Booth D.O. REASON FOR CONSULTATION: Hypertension and congestive heart failure. HISTORY OF PRESENT ILLNESS: The patient is a 74-year-old lady with history of hypertension, diabetes, hyperlipidemia, and congestive heart failure as well as schizophrenia and COPD, who was [place] for lower extremity cellulitis. The patient was evaluated by Dr. Bryan from Infectious Disease perspective. The patient's white count is also more than 21,000. At the time of my evaluation, the patient is status post sedation, because she was confused and agitated and got sedation. REVIEW OF SYSTEMS: Cannot be obtained. PAST MEDICAL HISTORY: As mentioned above. FAMILY HISTORY: Noncontributory. SOCIAL HISTORY: She lives in detention. PHYSICAL EXAMINATION: VITAL SIGNS: Blood pressure of 112/65, pulse 71, respirations 18, and temperature 96.4. HEAD AND NECK: No JVD. LUNGS: Clear. CARDIOVASCULAR: Regular, S1 and S2 with no gallop or murmur. ABDOMEN: Soft. EXTREMITIES: No pitting edema except for cellulitis of the legs. LABORATORY AND DIAGNOSTIC DATA: Labs show white count of 21,000 and went down to 11.8, hemoglobin 10.5, hematocrit 31, and platelet count of 278,000. Sodium 145, potassium 4, BUN of 11, creatinine 0.7, and glucose of 99. Troponin is negative. INR 0.9. ASSESSMENT AND PLAN: 1. Hypertension. Currently on p.r.n. clonidine. Hold off on the standing dose of blood pressure medications in view of the patient's sepsis as blood pressure may drop. 2. Lower extremity cellulitis and sepsis, on IV antibiotic. 3. History of congestive heart failure. Echocardiogram and BNP is pending. We will completely rule out with [place] protocol. 4. Psychosis, on Risperdal. Thank you very much for allowing me to participate in the care of this patient. Please do not hesitate to contact me for any questions regarding my evaluation. Derek Salcido M.D. DR: ZEYAD/JESSICA JOB#: [id number] CC:
[2019-07-13] MEDS: cefTRIAXone 2 GM in NS 55 ML IVPB SCH (17:38)
--- NOTE | 2019-07-13 19:50 | NUR ---
NURSE NOTES: Received pt and report from LEXY Cruz. Observed pt resting in bed with both eyes closed; arousable to voice. Pt is A/Ox2. alcohol law enforcement agent is in placed. IV site intact, asymptomatic, and patent. Pt is on 2L NC. Bed is in the lowest position and locked. Call light and bedside table is within reach. No signs/symptoms of acute distress noted at this time. Will continue plan of care.
[2019-07-13 20:00] VITALS: BP 113/65
--- NOTE | 2019-07-13 20:04 | NUR ---
HAND-OFF: Report given to LEXY Jc. Pt i stable condition, endorsed plan of care.
[2019-07-13] MEDS: Sennosides 8.6mg tab ORAL SCH (20:56)
[2019-07-13] MEDS: OLANZapine 10mg tab ORAL SCH (20:57)
[2019-07-14] VITALS: BP 114/52
[2019-07-14 04:00] VITALS: BP 137/70
[2019-07-14] MEDS: dilTIAZem HCl 30mg tab ORAL SCH ×3 (06:15→22:00)
--- NOTE | 2019-07-14 07:30 | NUR ---
NURSE NOTES: Received pt from HETAL RN. Pt is awake and screaming, pt has NC 2LMP. pt has intact iv access LFA 22G SL. Pt is on continues heart monitoring. all needs attended, bed is locked and is in the lowest position, call light within easy reach. will continue to monitor.
--- NOTE | 2019-07-14 07:47 | NUR ---
HAND-OFF: Report given to LEXY Ji. Plan of care endorsed.
[2019-07-14 08:00] VITALS: BP 144/73
--- NOTE | 2019-07-14 09:14 | Progress Note ---
DATE: 07/13/2019 PSYCHOTHERAPY CONSULTATION PROGRESS NOTE CONSULTING PHYSICIAN: Sharee Rivera PsyD. TREATING ATTENDING: Guy Booth D.O. HISTORY OF PRESENT ILLNESS: The patient is a 74-year-old female. She has a history of schizophrenia. The patient was brought to the hospital for cellulitis and right lower extremity pain. The patient is very disorganized and anxious. For these reasons, the patient was referred for psychotherapeutic services. I assessed this patient. The patient is disorganized and restless, anxious, agitated, yelling, screaming, staff and agitated. The patient has poor frustration tolerance, poor insight, judgment, and impulse control. The patient at this time is impulsive and agitated. anxiety, , also very lethargic, and confused. At this time, she has no logical plan for self-care and safety. She continues to remain anxious. PAST MEDICAL HISTORY: Includes a history of lower extremity cellulitis and anemia. ALLERGIES: The patient has allergies to bupropion, buspirone, fluoxetine, lurasidone. PSYCHIATRIC HISTORY: The patient has a history of psychotropic medications in the past. SOCIAL HISTORY: The patient is a 74-year-old female single patient. financially sustained through [employer]. MENTAL STATUS EXAMINATION: She is alert and oriented to person, place, mood. Affect is blunted. Thought process is disorganized. Thought content, the patient has poor attention and concentration. Poor insight, judgment, and impulse control. DIAGNOSES: 1. Paranoid schizophrenia. 2. Lower extremity cellulitis. 3. Psychosocial stressors, moderate. I ASSESSED THE PATIENT AND PROVIDED THE PATIENT WITH: 4. Reality orientation, which is focused on improving cognitive function of the patient, who is very confused and disorganized. Oriented to person, place, time, and situation. 5. Provided the patient with supportive psychotherapy encouraging the patient to communicate and articulate thoughts utilizing positive communication skills, . PLAN: To maintain medication compliance with the use of positive coping skills to stabilize thoughts and behavior. Psychotherapy service provided is 45 minutes. This clinician has reviewed the patient's chart and discussed treatment with treatment team. Sharee Rivera PsyD. DR: Felicitas JOB#: [id number] CC:
[2019-07-14] MEDS: Aspirin EC 81mg tab ORAL SCH (09:32)
[2019-07-14] MEDS: Docusate 250mg cap ORAL SCH (09:32)
[2019-07-14] MEDS: Digoxin 0.125mg tab ORAL SCH (09:33)
[2019-07-14] MEDS: Nuedexta Capsule 20/10mg ORAL SCH (09:33)
[2019-07-14] MEDS: LORazepam 1mg tab ORAL PRN ×2 (09:34→17:16)
[2019-07-14] MEDS: Multivitamin w/Minerals tab ORAL SCH (09:34)
[2019-07-14] MEDS: Benztropine 1mg tab ORAL SCH ×2 (09:34→17:16)
[2019-07-14] MEDS: Heparin 5000 units/ml inj SUBQ SCH ×2 (09:38→21:28)
--- NOTE | 2019-07-14 10:48 | NUR ---
NURSE NOTES: pt is very agitated, pt is screaming all the time, tries to get out of bed, Dr GRANADOS is aware and ordered to bi wrist restrains, noted and carried out. will continue to monitor.
--- NOTE | 2019-07-14 10:57 | General Progress Note ---
Assessment/Plan Problem List: (1) Sepsis ICD Codes: A41.9 - Sepsis, unspecified organism SNOMED: 15717375 (2) Leukocytosis ICD Codes: D72.829 - Elevated white blood cell count, unspecified SNOMED: 886945778, 591895331 (3) New onset a-fib ICD Codes: I48.91 - Unspecified atrial fibrillation SNOMED: 16800880 (4) Cellulitis ICD Codes: L03.90 - Cellulitis, unspecified SNOMED: 897294621 (5) Anemia ICD Codes: D64.9 - Anemia, unspecified SNOMED: 905210912 Status: stable, progressing Assessment/Plan: o2pulm tx abx wound care cardio f/u cbc bmp am Subjective Constitutional: Reports: weakness Allergies: Coded Allergies: BUPROPION (Verified Allergy, Unknown, 07/12/19) BUSPIRONE (Verified Allergy, Unknown, 07/12/19) FLUOXETINE (Verified Allergy, Unknown, 07/12/19) LURASIDONE (Verified Allergy, Unknown, 07/12/19) All Systems: reviewed and negative except above Subjective o2nc sleepy in bed Objective Last 24 Hour Vital Signs Date Time Temp Pulse Resp B/P (MAP) Pulse Ox O2 Delivery O2 Flow Rate FiO2 07/14/19 09:33 73 07/14/19 08:59 74 18 98 Nasal Cannula 2.0 28 07/14/19 08:59 73 18 98 Nasal Cannula 2.0 28 07/14/19 08:00 97.0 80 18 144/73 (96) 96 07/14/19 07:41 98 07/14/19 06:15 87 144/65 07/14/19 04:00 83 07/14/19 04:00 97.7 68 18 137/70 (92) 97 07/14/19 00:00 97.7 74 17 114/52 (72) 97 07/14/19 00:00 77 07/13/19 22:29 87 135/71 07/13/19 21:14 Nasal Cannula 2.0 28 07/13/19 21:13 68 16 98 Nasal Cannula 2.0 28 07/13/19 21:00 Nasal Cannula 2.0 07/13/19 20:00 121 07/13/19 20:00 97.7 86 17 113/65 (81) 99 07/13/19 16:00 96.8 70 18 100/58 (72) 97 07/13/19 15:18 78 07/13/19 12:00 96.3 74 18 104/53 (70) 98 07/13/19 11:41 68 Intake and Output 07/13/19 07/14/19 19:00 07:00 Intake Total 250 ml 500 ml Output Total 600 ml Balance -350 ml 500 ml Intake Oral 250 ml 500 ml Output Urine Total 600 ml # Voids 1 2 Height (Feet): 5 Height (Inches): 2.00 Weight (Pounds): 144 General Appearance: lethargic EENT: normal ENT inspection Neck: normal alignment Cardiovascular: normal peripheral pulses, normal rate, regular rhythm Respiratory/Chest: chest wall non-tender, lungs clear, normal breath sounds Abdomen: normal bowel sounds, non tender, soft Extremities: normal inspection Edema: no edema noted Arm (L), no edema noted Arm (R), no edema noted Leg (L), no edema noted Leg (R), no edema noted Pedal (L), no edema noted Pedal (R), no edema noted Generalized Neurologic: motor weakness Skin: normal pigmentation, warm/dry Objective r smith sl red Guy Booth DO Jul 14, 2019 10:57
--- NOTE | 2019-07-14 11:15 | NUR ---
PT NOTE Attempted to see patient for PT evaluation. Patient agitated earlier, was sedated, currently sleeping, opens eyes briefly then closes them again. Patient unable to participate with PT at this time, will re-attempt later as schedule permits. [facility] notified.
--- NOTE | 2019-07-14 11:43 | Infectious Diseases Prog Note ---
Assessment/Plan Assessment/Plan ASSESSMENT: The patient is a 74-year-old female with: Leukocytosis, sp SP Sepsis. Right lower extremity cellulitis. Rule out bacteremia. Rule out probable urinary tract infection. History of COPD. Heart failure. Hypertension. Diabetes. Parkinson disease. Hyperlipidemia. Arthritis. GERD. Anemia. Primary schizophrenia. Anxiety. Osteoporosis. PLAN: Cont patient on IV vancomycin and Rocephin # 3 CBC and BMP. Monitor cultures (blood, urine) Subjective Allergies: Coded Allergies: BUPROPION (Verified Allergy, Unknown, 07/12/19) BUSPIRONE (Verified Allergy, Unknown, 07/12/19) FLUOXETINE (Verified Allergy, Unknown, 07/12/19) LURASIDONE (Verified Allergy, Unknown, 07/12/19) Subjective Afebrile Comfortable Objective Vital Signs Last 24 Hour Vital Signs Date Time Temp Pulse Resp B/P (MAP) Pulse Ox O2 Delivery O2 Flow Rate FiO2 07/14/19 09:33 73 07/14/19 08:59 74 18 98 Nasal Cannula 2.0 28 07/14/19 08:59 73 18 98 Nasal Cannula 2.0 28 07/14/19 08:00 97.0 80 18 144/73 (96) 96 07/14/19 07:41 98 07/14/19 06:15 87 144/65 07/14/19 04:00 83 07/14/19 04:00 97.7 68 18 137/70 (92) 97 07/14/19 00:00 97.7 74 17 114/52 (72) 97 07/14/19 00:00 77 07/13/19 22:29 87 135/71 07/13/19 21:14 Nasal Cannula 2.0 28 07/13/19 21:13 68 16 98 Nasal Cannula 2.0 28 07/13/19 21:00 Nasal Cannula 2.0 07/13/19 20:00 121 07/13/19 20:00 97.7 86 17 113/65 (81) 99 07/13/19 16:00 96.8 70 18 100/58 (72) 97 07/13/19 15:18 78 07/13/19 12:00 96.3 74 18 104/53 (70) 98 07/13/19 11:41 68 Height (Feet): 5 Height (Inches): 2.00 Weight (Pounds): 144 HEENT: anicteric Respiratory/Chest: normal breath sounds Cardiovascular: regular rhythm Abdomen: non distended Microbiology Date/Time Source Procedure Growth Status 07/12/19 13:13 Blood Blood Culture - Preliminary NO GROWTH AFTER 24 HOURS Resulted 07/12/19 13:00 Blood Blood Culture - Preliminary NO GROWTH AFTER 24 HOURS Resulted 07/12/19 15:16 Rectum Received Current Medications Medications (Trade) Dose Ordered Sig/Sundeep Route PRN Reason Start Time Stop Time Status Last Admin Dose Admin Aspirin (Ecotrin) 81 mg DAILY ORAL 07/13/19 09:00 08/27/19 08:59 07/14/19 09:32 Benztropine Mesylate (Cogentin) 1 mg BID ORAL 07/12/19 18:00 08/11/19 17:59 07/14/19 09:34 Budesonide/ Formoterol Fumarate (Symbicort 160/ 4.5) 1 puff BIDRT INH 07/12/19 22:00 10/10/19 21:59 07/14/19 08:59 Ceftriaxone Sodium 2 gm/ Sodium Chloride 55 ml @ 110 mls/hr Q24H IVPB 07/12/19 17:00 07/19/19 16:59 07/13/19 17:38 Clonidine HCl (Catapres Tab) 0.1 mg Q6H PRN ORAL SBP > 160mmHg 07/12/19 17:00 10/10/19 16:59 Dextromethorphan/ Quinidine (Nuedexta Capsule) 1 cap DAILY ORAL 07/13/19 09:00 10/11/19 08:59 07/14/19 09:33 Digoxin (Lanoxin) 0.125 mg DAILY ORAL 07/14/19 09:00 10/12/19 08:59 07/14/19 09:33 Diltiazem HCl (Cardizem) 30 mg EVERY 8 HOURS ORAL 07/13/19 14:00 08/12/19 13:59 07/14/19 06:15 Docusate Sodium (Colace) 250 mg DAILY ORAL 07/13/19 09:00 08/12/19 08:59 07/14/19 09:32 Famotidine (Pepcid) 20 mg DAILY ORAL 07/13/19 09:00 10/11/19 08:59 07/14/19 09:32 Ferrous Sulfate (Feosol) 325 mg DAILY ORAL 07/13/19 09:00 10/11/19 08:59 07/14/19 09:34 Gabapentin (Neurontin) 100 mg Q8HR ORAL 07/12/19 22:00 08/11/19 21:59 07/14/19 06:14 Heparin Sodium (Porcine) (Heparin 5000 units/ml) 5,000 units EVERY 12 HOURS SUBQ 07/12/19 21:00 08/26/19 20:59 07/14/19 09:38 Lorazepam (Ativan) 1 mg Q6H PRN ORAL For Anxiety 07/12/19 17:00 07/19/19 16:59 07/14/19 09:34 Morphine Sulfate (Morphine Sulfate) 2 mg Q4H PRN IVP PAIN 4-10 07/12/19 17:00 07/19/19 16:59 Multivitamins Therapeutic (Therapeutic Multivitamin) 1 ea DAILY ORAL 07/13/19 09:00 08/12/19 08:59 07/14/19 09:34 Olanzapine (ZyPREXA) 5 mg DAILY ORAL 07/13/19 09:00 08/27/19 08:59 07/14/19 09:33 Olanzapine (ZyPREXA) 10 mg QHS ORAL 07/12/19 21:00 08/26/19 20:59 07/13/19 20:57 Risperidone (RisperDAL) 3 mg Q12HR ORAL 07/12/19 21:00 08/26/19 20:59 07/14/19 09:34 Sennosides (Senokot) 8.6 mg BEDTIME ORAL 07/12/19 21:00 08/11/19 20:59 07/13/19 20:56 Vancomycin HCl (Vanco rx to dose) 1 ea DAILY PRN MISC Per rx protocol 07/12/19 15:15 08/11/19 15:14 Vancomycin/Sodium Chloride 275 ml @ 183.333 mls/hr Q24H IVPB 07/13/19 13:00 07/18/19 12:59 07/13/19 13:18 Zolpidem Tartrate (Ambien) 5 mg HSPRN PRN ORAL Insomnia 07/12/19 22:15 07/19/19 22:14 07/12/19 22:29 Ryan Bryan MD Jul 14, 2019 11:43
--- NOTE | 2019-07-14 11:46 | Cardiac Electrophysiology PN ---
Assessment/Plan Assessment/Plan 1. Hypertension. Currently on p.r.n. clonidine and Cardizem 30 q 8 2. PAF. In SR on Dig and Cardizem. 2. Lower extremity cellulitis and sepsis, on IV antibiotic. 3. History of congestive heart failure. Echocardiogram EF 65% and troponin negative 4. Psychosis, on Risperdal. Subjective Subjective In sinus tach 102. No more atrial fib. Objective Last 24 Hour Vital Signs Date Time Temp Pulse Resp B/P (MAP) Pulse Ox O2 Delivery O2 Flow Rate FiO2 07/14/19 09:33 73 07/14/19 08:59 74 18 98 Nasal Cannula 2.0 28 07/14/19 08:59 73 18 98 Nasal Cannula 2.0 28 07/14/19 08:00 97.0 80 18 144/73 (96) 96 07/14/19 07:41 98 07/14/19 06:15 87 144/65 07/14/19 04:00 83 07/14/19 04:00 97.7 68 18 137/70 (92) 97 07/14/19 00:00 97.7 74 17 114/52 (72) 97 07/14/19 00:00 77 07/13/19 22:29 87 135/71 07/13/19 21:14 Nasal Cannula 2.0 28 07/13/19 21:13 68 16 98 Nasal Cannula 2.0 28 07/13/19 21:00 Nasal Cannula 2.0 07/13/19 20:00 121 07/13/19 20:00 97.7 86 17 113/65 (81) 99 07/13/19 16:00 96.8 70 18 100/58 (72) 97 07/13/19 15:18 78 07/13/19 12:00 96.3 74 18 104/53 (70) 98 07/13/19 11:41 68 Intake and Output 07/13/19 07/14/19 19:00 07:00 Intake Total 250 ml 500 ml Output Total 600 ml Balance -350 ml 500 ml Intake Oral 250 ml 500 ml Output Urine Total 600 ml # Voids 1 2 Microbiology Date/Time Source Procedure Growth Status 07/12/19 13:13 Blood Blood Culture - Preliminary NO GROWTH AFTER 24 HOURS Resulted 07/12/19 13:00 Blood Blood Culture - Preliminary NO GROWTH AFTER 24 HOURS Resulted 07/12/19 15:16 Rectum Received Objective HEAD AND NECK: No JVD. LUNGS: Clear. CARDIOVASCULAR: Regular, S1 and S2 with no gallop or murmur. ABDOMEN: Soft. EXTREMITIES: No pitting edema except for cellulitis of the legs. Derek Salcido MD Jul 14, 2019 11:46
--- NOTE | 2019-07-14 11:55 | Consultation ---
History of Present Illness General Date patient seen: Jul 14, 2019 Reason for Hospitalization: Skin Rash/Abscess Present Illness HPI This is a very pleasant 74-year-old female past medical history of cellulitis of the left lower leg, gait abnormalities, cognitive communication deficit, COPD , heart failure, hypertension, diabetes, Parkinson's, hyperlipidemia, arthritis , GERD, anemia, paranoid schizophrenia, anxiety, pseudobulbar affect, osteoporosis and chronic kidney disease who was brought from her [facility] for right lower extremity cellulitis and elevated white blood cell count. Patient is a poor historian. States that there was something sharp next to her bed and she kept hitting her leg on it. Denies any nausea vomiting fever chills. In ED identified to have significant leukocytosis. Admitted for further care and management. Surgery called to evaluate and assist with care. Patient seen, patient evaluated, chart reviewed Allergies: Coded Allergies: BUPROPION (Verified Allergy, Unknown, 07/12/19) BUSPIRONE (Verified Allergy, Unknown, 07/12/19) FLUOXETINE (Verified Allergy, Unknown, 07/12/19) LURASIDONE (Verified Allergy, Unknown, 07/12/19) Medication History Scheduled Aspirin (Ecotrin), 81 MG PO DAILY, (Reported) Benztropine Mesylate* (Benztropine Mesylate*), 1 MG ORAL BID, (Reported) Budesonide/Formoterol Fumarate (Symbicort 160-4.5 Mcg Inhaler), 1 PUFF IH BID, ( Reported) Clonidine Hcl* (Catapres*), 0.1 MG ORAL EVERY 6 HOURS, (Reported) Dextromethorphan Hbr/Quinidine (Nuedexta 20-10 Mg Capsule), 1 EACH PO DAILY, ( Reported) Docusate Sodium* (Docusate Sodium*), 250 MG ORAL DAILY, (Reported) Famotidine* (Pepcid 20mg tablet*), 20 MG ORAL DAILY, (Reported) Ferrous Sulfate* (Ferrous Sulfate*), 325 MG ORAL DAILY, (Reported) Gabapentin* (Neurontin*), 100 MG ORAL THREE TIMES A DAY, (Reported) Lorazepam* (Ativan*), 1 MG ORAL EVERY 6 HOURS, (Reported) Metoprolol/Hydrochlorothiazide (Lopressor Hct 50-25 Tablet), 1 TAB ORAL DAILY, ( Reported) Multivitamin With Minerals (Multivitamins With Minerals*), 1 TAB ORAL DAILY, ( Reported) Mv-Mn/Iron/Fa/Herbal Cmplx#190 (Vitamin D3 Complete Caplet), 1 EACH PO DAILY, ( Reported) Risperidone* (Risperdal*), 3 MG ORAL BID, (Reported) Sennosides (Senokot), 8.6 MG PO BEDTIME, (Reported) Patient History Limited by: other History Provided By: Patient, Medical Record, PMD Healthcare decision maker Dr STACY Resuscitation status Full Code Advanced Directive on File Past Medical/Surgical History Past Medical/Surgical History: (1) Anemia (2) New onset a-fib (3) Atrial fibrillation with RVR (4) Cellulitis (5) Leukocytosis (6) Sepsis Review of Systems Review of Symptoms General ROS: no weight loss or fever Psychological ROS: no depression or mood changes, no memory loss Ophthalmic ROS: no visual changes or eye irritation ENT ROS: no nasal congestion, hearing loss, dizziness Allergy and Immunology ROS: no allergic symptoms or urticaria Hematological and Lymphatic ROS: no swollen glands, unusual bleeding or bruising Endocrine ROS: no polyuria, polydipsia, weight changes, temperature intolerance Respiratory ROS: no cough, shortness of breath, or wheezing Cardiovascular ROS: no chest pain or dyspnea on exertion Gastrointestinal ROS: denies abdominal pain, bright red blood in stool. Musculoskeletal ROS: no myalgias or arthralgias Neurological ROS: no TIA or stroke symptoms Dermatological ROS: no new or changing skin lesions, rashes or pruritis Physical Exam Physical Exam General appearance: alert, cooperative, no distress, appears stated age Head: Normocephalic, without obvious abnormality, atraumatic Eyes: conjunctivae/corneas clear. PERRL, EOM's intact. Fundi benign Throat: Lips, mucosa, and tongue normal. Teeth and gums normal Neck: supple, symmetrical, trachea midline, no adenopathy, thyroid: not enlarged, symmetric, no tenderness/mass/nodules, no carotid bruit and no JVD Lungs: clear to auscultation bilaterally Heart: regular rate and rhythm, S1, S2 normal, no murmur, click, rub or gallop Abdomen: soft, non-tender. Bowel sounds normal. No masses, no organomegaly Extremities: extremities right with anterior tibial cellulitis and superfiicial trauma wounds Pulses: 2+ and symmetric Skin: Skin color, texture, turgor normal. No rashes or lesions Neurologic: Grossly normal Last 24 Hour Vital Signs Date Time Temp Pulse Resp B/P (MAP) Pulse Ox O2 Delivery O2 Flow Rate FiO2 07/14/19 09:33 73 07/14/19 08:59 74 18 98 Nasal Cannula 2.0 28 07/14/19 08:59 73 18 98 Nasal Cannula 2.0 28 07/14/19 08:00 97.0 80 18 144/73 (96) 96 07/14/19 07:41 98 07/14/19 06:15 87 144/65 07/14/19 04:00 83 07/14/19 04:00 97.7 68 18 137/70 (92) 97 07/14/19 00:00 97.7 74 17 114/52 (72) 97 07/14/19 00:00 77 07/13/19 22:29 87 135/71 07/13/19 21:14 Nasal Cannula 2.0 28 07/13/19 21:13 68 16 98 Nasal Cannula 2.0 28 07/13/19 21:00 Nasal Cannula 2.0 07/13/19 20:00 121 07/13/19 20:00 97.7 86 17 113/65 (81) 99 07/13/19 16:00 96.8 70 18 100/58 (72) 97 07/13/19 15:18 78 07/13/19 12:00 96.3 74 18 104/53 (70) 98 Intake and Output 07/13/19 07/14/19 19:00 07:00 Intake Total 250 ml 500 ml Output Total 600 ml Balance -350 ml 500 ml Intake Oral 250 ml 500 ml Output Urine Total 600 ml # Voids 1 2 Height (Feet): 5 Height (Inches): 2.00 Weight (Pounds): 144 Medications Current Medications Medications (Trade) Dose Ordered Sig/Sundeep Route PRN Reason Start Time Stop Time Status Last Admin Dose Admin Aspirin (Ecotrin) 81 mg DAILY ORAL 07/13/19 09:00 08/27/19 08:59 07/14/19 09:32 Benztropine Mesylate (Cogentin) 1 mg BID ORAL 07/12/19 18:00 08/11/19 17:59 07/14/19 09:34 Budesonide/ Formoterol Fumarate (Symbicort 160/ 4.5) 1 puff BIDRT INH 07/12/19 22:00 10/10/19 21:59 07/14/19 08:59 Ceftriaxone Sodium 2 gm/ Sodium Chloride 55 ml @ 110 mls/hr Q24H IVPB 07/12/19 17:00 07/19/19 16:59 07/13/19 17:38 Clonidine HCl (Catapres Tab) 0.1 mg Q6H PRN ORAL SBP > 160mmHg 07/12/19 17:00 10/10/19 16:59 Dextromethorphan/ Quinidine (Nuedexta Capsule) 1 cap DAILY ORAL 07/13/19 09:00 10/11/19 08:59 07/14/19 09:33 Digoxin (Lanoxin) 0.125 mg DAILY ORAL 07/14/19 09:00 10/12/19 08:59 07/14/19 09:33 Diltiazem HCl (Cardizem) 30 mg EVERY 8 HOURS ORAL 07/13/19 14:00 08/12/19 13:59 07/14/19 06:15 Docusate Sodium (Colace) 250 mg DAILY ORAL 07/13/19 09:00 08/12/19 08:59 07/14/19 09:32 Famotidine (Pepcid) 20 mg DAILY ORAL 07/13/19 09:00 10/11/19 08:59 07/14/19 09:32 Ferrous Sulfate (Feosol) 325 mg DAILY ORAL 07/13/19 09:00 10/11/19 08:59 07/14/19 09:34 Gabapentin (Neurontin) 100 mg Q8HR ORAL 07/12/19 22:00 08/11/19 21:59 07/14/19 06:14 Heparin Sodium (Porcine) (Heparin 5000 units/ml) 5,000 units EVERY 12 HOURS SUBQ 07/12/19 21:00 08/26/19 20:59 07/14/19 09:38 Lorazepam (Ativan) 1 mg Q6H PRN ORAL For Anxiety 07/12/19 17:00 07/19/19 16:59 07/14/19 09:34 Morphine Sulfate (Morphine Sulfate) 2 mg Q4H PRN IVP PAIN 4-10 07/12/19 17:00 07/19/19 16:59 Multivitamins Therapeutic (Therapeutic Multivitamin) 1 ea DAILY ORAL 07/13/19 09:00 08/12/19 08:59 07/14/19 09:34 Olanzapine (ZyPREXA) 5 mg DAILY ORAL 07/13/19 09:00 08/27/19 08:59 07/14/19 09:33 Olanzapine (ZyPREXA) 10 mg QHS ORAL 07/12/19 21:00 08/26/19 20:59 07/13/19 20:57 Risperidone (RisperDAL) 3 mg Q12HR ORAL 07/12/19 21:00 08/26/19 20:59 07/14/19 09:34 Sennosides (Senokot) 8.6 mg BEDTIME ORAL 07/12/19 21:00 08/11/19 20:59 07/13/19 20:56 Vancomycin HCl (Vanco rx to dose) 1 ea DAILY PRN MISC Per rx protocol 07/12/19 15:15 08/11/19 15:14 Vancomycin/Sodium Chloride 275 ml @ 183.333 mls/hr Q24H IVPB 07/13/19 13:00 07/18/19 12:59 07/13/19 13:18 Zolpidem Tartrate (Ambien) 5 mg HSPRN PRN ORAL Insomnia 07/12/19 22:15 07/19/19 22:14 07/12/19 22:29 Assessment/Plan Problem List: (1) Cellulitis Assessment & Plan: This is a 74-year-old female with multiple medical comorbidities and psych history who presents with right lower extremity cellulitis potentially secondary to trauma. Patient identified to have multiple scabs and superficial open wounds on her right anterior tibial lower extremity potentially seemingly from hitting it against the bedpost. Patient states that there was something sharp in her bed she kept trying to kick at it. She is not very reliable when it comes to history. Wound evaluated, significant leukocytosis on antibiotics as per infectious disease, imaging noted No acute debridement or surgical invention indicated at this time. Cellulitis seemingly improving. Leukocytosis improving Continue with IV antibiotics Wash wounds daily with normal saline, apply bacitracin and nonadherent foam dressing Physical therapy gait eval Nutritional optimization We will follow with recommendations thank you for let me participate in patient' s care ICD Codes: L03.90 - Cellulitis, unspecified SNOMED: 304992053 Qualifiers: Qualified Codes: L03.115 - Cellulitis of right lower limb MendezRamo Jul 14, 2019 11:54
[2019-07-14 12:00] VITALS: BP 142/92
--- NOTE | 2019-07-14 13:00 | NUR ---
Pt. noted to be confused, trying to climb out of bed, unable to ambulate, high risk for fall, unable to follow commands, pulled out IV. Bilat. soft wrist restraints applied for safety. Dr. Booth & Dr. Warren made aware . gave order for restraints. will continue to monitor.
[2019-07-14] MEDS: Vancomycin 1.25gm/NS Premix IVPB SCH (13:41)
[2019-07-14 16:00] VITALS: BP 138/65
[2019-07-14] MEDS: cefTRIAXone 2 GM in NS 55 ML IVPB SCH (17:16)
--- NOTE | 2019-07-14 19:30 | NUR ---
HAND-OFF: Report given to KAYLEIGH MANRIQUEZ. Pt is stable and sleeping.
[2019-07-14 20:00] VITALS: BP 130/75
--- NOTE | 2019-07-14 20:00 | NUR ---
NURSE NOTES: RECEIVED PATIENT LYING IN BED, EYES CLOSED; RECEIVED ATIVAN 1 MG PO AT 1716 FOR ANXIETY. NO SIGNS AND SYMPTOMS OF ACUTE CARDIO RESPIRATORY DISTRESS/SHORTNESS OF BREATH, NO EDEMA NOTED. CONTINUE ON COMMERCIAL TELLER. OPTIFOAM DRESSINGS INTACT TO BILATERAL LOWER EXTREMITIES, RIGHT UPPER EXTREMITY. ABDOMEN SOFT/NON DISTENDED, BOWEL SOUNDS AUDIBLE, INCONTINENT OF BLADDER, CARE PROVIDED, TOLERATED WELL. SIDE RAILS UP X3/BED IN LOWEST POSITION FOR SAFETY. BED ALARM ACTIVATED FOR PREVENTIVE MEASURES. FREQUENT ROUNDING FOR SAFETY/NEEDS. NAD. CONTINUE WITH CURRENT PLAN OF CARE.
[2019-07-14] MEDS: Sennosides 8.6mg tab ORAL SCH (21:00)
[2019-07-14] MEDS: OLANZapine 10mg tab ORAL SCH (21:00)
--- NOTE | 2019-07-14 21:29 | NUR ---
NURSE NOTES: VITALS STABLE, 115/65, HR 73, RESP 16, AFEBRILE
[2019-07-15] VITALS: BP 98/54
[2019-07-15 04:00] VITALS: BP 128/76
[2019-07-15] MEDS: dilTIAZem HCl 30mg tab ORAL SCH ×3 (05:46→21:15)
--- NOTE | 2019-07-15 06:02 | NUR ---
NURSE NOTES: NO SIGNIFICANT CHANGE OF CONDITION NOTED THROUGHOUT THE NIGHT. SAFETY MAINTAINED. NAD.
--- NOTE | 2019-07-15 07:30 | NUR ---
HAND-OFF: Report given to LEXY MOLINA.
--- NOTE | 2019-07-15 07:31 | NUR ---
NURSE NOTES: Received pt from [facility]. Pt is awake and screaming, pt has NC 2LMP. pt has intact iv access JOSE 22G SL. Pt is on continues heart monitoring. all needs attended, bed is locked and is in the lowest position, call light within easy reach. will continue to monitor.
[2019-07-15 08:00] VITALS: BP 133/51
[2019-07-15] MEDS ORDERED: Haloperidol Decanoate (Long Acting) 50mg Inj IM ONE ×2 (08:00→15:00)
--- NOTE | 2019-07-15 08:03 | NUR ---
NURSE NOTES: pt is very agitated, she is screaming all time, she kicked nurses, she tries to pull out iv and get out of bed, Dr GRANADOS is aware and ordered Haldol 10mg im, Ativan 2mg im, Benadryl 50mg im all once and Zyprexa 10mg bid and qhs, noted and carried out. will continue to monitor.
[2019-07-15] MEDS ORDERED: LORazepam Inj 2mg/ml 1ml IM SCH (08:15)
[2019-07-15] MEDS ORDERED: DiphenhydrAMINE 50mg/ml Inj IM SCH (08:15)
[2019-07-15] MEDS ORDERED: Haloperidol 5mg/ml Inj IM SCH (08:30)
--- NOTE | 2019-07-15 08:48 | General Progress Note ---
Assessment/Plan Problem List: (1) Sepsis ICD Codes: A41.9 - Sepsis, unspecified organism SNOMED: 00528476 (2) Leukocytosis ICD Codes: D72.829 - Elevated white blood cell count, unspecified SNOMED: 931981226, 906123141 (3) New onset a-fib ICD Codes: I48.91 - Unspecified atrial fibrillation SNOMED: 61033534 (4) Cellulitis ICD Codes: L03.90 - Cellulitis, unspecified SNOMED: 915658524 Qualifiers: Qualified Codes: L03.115 - Cellulitis of right lower limb (5) Anemia ICD Codes: D64.9 - Anemia, unspecified SNOMED: 326127871 Status: stable, progressing Assessment/Plan: o2pulm tx abx wound care cardio f/u cbc bmp am Subjective Constitutional: Reports: weakness Allergies: Coded Allergies: BUPROPION (Verified Allergy, Unknown, 07/12/19) BUSPIRONE (Verified Allergy, Unknown, 07/12/19) FLUOXETINE (Verified Allergy, Unknown, 07/12/19) LURASIDONE (Verified Allergy, Unknown, 07/12/19) All Systems: reviewed and negative except above Subjective o2nc calm in bed Objective Last 24 Hour Vital Signs Date Time Temp Pulse Resp B/P (MAP) Pulse Ox O2 Delivery O2 Flow Rate FiO2 07/15/19 08:00 97.9 100 19 133/51 (78) 96 07/15/19 07:45 101 07/15/19 05:46 79 125/72 07/15/19 04:00 72 07/15/19 04:00 97.6 82 16 128/76 (93) 95 07/15/19 00:00 97.3 68 16 98/54 (69) 96 07/15/19 00:00 72 07/14/19 22:00 75 121/67 07/14/19 21:30 Nasal Cannula 2.0 28 07/14/19 21:30 2.0 28 07/14/19 21:00 Nasal Cannula 2.0 07/14/19 20:00 98 07/14/19 20:00 97.7 80 18 130/75 (93) 95 07/14/19 16:00 97.7 100 18 138/65 (89) 97 07/14/19 15:09 111 07/14/19 13:40 96 142/92 07/14/19 12:00 96.4 96 20 142/92 (109) 98 07/14/19 11:33 100 07/14/19 09:33 73 07/14/19 09:00 Nasal Cannula 2.0 07/14/19 08:59 74 18 98 Nasal Cannula 2.0 28 07/14/19 08:59 73 18 98 Nasal Cannula 2.0 28 Intake and Output 07/14/19 07/15/19 19:00 07:00 Intake Total 570.000 ml 60 ml Balance 570.000 ml 60 ml Intake Oral 240 ml 60 ml IV Total 330.000 ml # Voids 4 3 Height (Feet): 5 Height (Inches): 2.00 Weight (Pounds): 144 General Appearance: lethargic EENT: normal ENT inspection Neck: normal alignment Cardiovascular: normal peripheral pulses, normal rate, regular rhythm Respiratory/Chest: chest wall non-tender, lungs clear, normal breath sounds Abdomen: normal bowel sounds, non tender, soft Extremities: normal inspection Edema: no edema noted Arm (L), no edema noted Arm (R), no edema noted Leg (L), no edema noted Leg (R), no edema noted Pedal (L), no edema noted Pedal (R), no edema noted Generalized Objective r smith dressing c&d Guy Booth DO Jul 15, 2019 08:48
--- NOTE | 2019-07-15 08:55 | NUR ---
PT EVALUATION NOTE Patient seen for initial evaluation. Patient presents with generalized weakness, cognitive deficit and impaired functional mobility. Patient required mod assist for bed mobility and transfers with FWW. Patient unable to ambulate and is agitated and combative at times. Patient will benefit from skilled inpatient PT intervention to address strength, balance and safety for improved level of functional mobility. Recommend discharge to SNF once medically cleared by MD. No DME recommendations at this time. Addendum: 07/15/19 at 1123 by LANDON ALY PT Amended: Links added.
[2019-07-15] MEDS: Benztropine 1mg tab ORAL SCH ×2 (09:02→17:22)
[2019-07-15] MEDS: Nuedexta Capsule 20/10mg ORAL SCH (09:02)
[2019-07-15] MEDS: Aspirin EC 81mg tab ORAL SCH (09:02)
[2019-07-15] MEDS: Multivitamin w/Minerals tab ORAL SCH (09:02)
[2019-07-15] MEDS: Digoxin 0.125mg tab ORAL SCH (09:03)
[2019-07-15] MEDS: OLANZapine 10mg tab ORAL SCH ×3 (09:03→21:13)
[2019-07-15] MEDS: Docusate 250mg cap ORAL SCH (09:03)
[2019-07-15] MEDS: Heparin 5000 units/ml inj SUBQ SCH ×2 (09:05→21:15)
--- NOTE | 2019-07-15 09:57 | Infectious Diseases Prog Note ---
Assessment/Plan Assessment/Plan ASSESSMENT: The patient is a 74-year-old female with: Leukocytosis, sp SP Sepsis. Right lower extremity cellulitis. Rule out bacteremia. Rule out probable urinary tract infection. History of COPD. Heart failure. Hypertension. Diabetes. Parkinson disease. Hyperlipidemia. Arthritis. GERD. Anemia. Primary schizophrenia. Anxiety. Osteoporosis. PLAN: Cont patient on IV vancomycin and Rocephin # 4/7 CBC and BMP. Monitor cultures (blood, urine) Subjective Allergies: Coded Allergies: BUPROPION (Verified Allergy, Unknown, 07/12/19) BUSPIRONE (Verified Allergy, Unknown, 07/12/19) FLUOXETINE (Verified Allergy, Unknown, 07/12/19) LURASIDONE (Verified Allergy, Unknown, 07/12/19) Subjective Afebrile no acute event Objective Vital Signs Last 24 Hour Vital Signs Date Time Temp Pulse Resp B/P (MAP) Pulse Ox O2 Delivery O2 Flow Rate FiO2 07/15/19 09:03 100 07/15/19 08:00 97.9 100 19 133/51 (78) 96 07/15/19 07:45 101 07/15/19 05:46 79 125/72 07/15/19 04:00 72 07/15/19 04:00 97.6 82 16 128/76 (93) 95 07/15/19 00:00 97.3 68 16 98/54 (69) 96 07/15/19 00:00 72 07/14/19 22:00 75 121/67 07/14/19 21:30 Nasal Cannula 2.0 28 07/14/19 21:30 2.0 28 07/14/19 21:00 Nasal Cannula 2.0 07/14/19 20:00 98 07/14/19 20:00 97.7 80 18 130/75 (93) 95 07/14/19 16:00 97.7 100 18 138/65 (89) 97 07/14/19 15:09 111 07/14/19 13:40 96 142/92 07/14/19 12:00 96.4 96 20 142/92 (109) 98 07/14/19 11:33 100 Height (Feet): 5 Height (Inches): 2.00 Weight (Pounds): 144 HEENT: anicteric Respiratory/Chest: normal breath sounds Cardiovascular: regularly irregular Abdomen: soft, non tender Microbiology Date/Time Source Procedure Growth Status 07/12/19 13:13 Blood Blood Culture - Preliminary NO GROWTH AFTER 48 HOURS Resulted 07/12/19 13:00 Blood Blood Culture - Preliminary NO GROWTH AFTER 48 HOURS Resulted 07/12/19 15:16 Rectum - Final NO CARBAPENEM-RESISTANT ENTEROBACTERI... Complete 07/12/19 15:16 Rectum VRE Culture - Final NO VANCOMYCIN RESISTANT ENTEROCOCCUS ... Complete Current Medications Medications (Trade) Dose Ordered Sig/Sundeep Route PRN Reason Start Time Stop Time Status Last Admin Dose Admin Aspirin (Ecotrin) 81 mg DAILY ORAL 07/13/19 09:00 08/27/19 08:59 07/15/19 09:02 Benztropine Mesylate (Cogentin) 1 mg BID ORAL 07/12/19 18:00 08/11/19 17:59 07/15/19 09:02 Budesonide/ Formoterol Fumarate (Symbicort 160/ 4.5) 1 puff BIDRT INH 07/12/19 22:00 10/10/19 21:59 07/14/19 08:59 Ceftriaxone Sodium 2 gm/ Sodium Chloride 55 ml @ 110 mls/hr Q24H IVPB 07/12/19 17:00 07/19/19 16:59 07/14/19 17:16 Clonidine HCl (Catapres Tab) 0.1 mg Q6H PRN ORAL SBP > 160mmHg 07/12/19 17:00 10/10/19 16:59 Dextromethorphan/ Quinidine (Nuedexta Capsule) 1 cap DAILY ORAL 07/13/19 09:00 10/11/19 08:59 07/15/19 09:02 Digoxin (Lanoxin) 0.125 mg DAILY ORAL 07/14/19 09:00 10/12/19 08:59 07/15/19 09:03 Diltiazem HCl (Cardizem) 30 mg EVERY 8 HOURS ORAL 07/13/19 14:00 08/12/19 13:59 07/15/19 05:46 Docusate Sodium (Colace) 250 mg DAILY ORAL 07/13/19 09:00 08/12/19 08:59 07/15/19 09:03 Famotidine (Pepcid) 20 mg DAILY ORAL 07/13/19 09:00 10/11/19 08:59 07/15/19 09:02 Ferrous Sulfate (Feosol) 325 mg DAILY ORAL 07/13/19 09:00 10/11/19 08:59 07/15/19 09:02 Gabapentin (Neurontin) 100 mg Q8HR ORAL 07/12/19 22:00 08/11/19 21:59 07/15/19 05:46 Heparin Sodium (Porcine) (Heparin 5000 units/ml) 5,000 units EVERY 12 HOURS SUBQ 07/12/19 21:00 08/26/19 20:59 07/15/19 09:05 Lorazepam (Ativan) 1 mg Q6H PRN ORAL For Anxiety 07/12/19 17:00 07/19/19 16:59 07/14/19 17:16 Morphine Sulfate (Morphine Sulfate) 2 mg Q4H PRN IVP PAIN 4-10 07/12/19 17:00 07/19/19 16:59 Multivitamins Therapeutic (Therapeutic Multivitamin) 1 ea DAILY ORAL 07/13/19 09:00 08/12/19 08:59 07/15/19 09:02 Olanzapine (ZyPREXA) 10 mg BID ORAL 07/15/19 09:00 08/29/19 08:59 07/15/19 09:03 Olanzapine (ZyPREXA) 10 mg QHS ORAL 07/12/19 21:00 08/26/19 20:59 07/13/19 20:57 Risperidone (RisperDAL) 3 mg Q12HR ORAL 07/12/19 21:00 08/26/19 20:59 07/15/19 09:05 Sennosides (Senokot) 8.6 mg BEDTIME ORAL 07/12/19 21:00 08/11/19 20:59 07/13/19 20:56 Vancomycin HCl (Vanco rx to dose) 1 ea DAILY PRN MISC Per rx protocol 07/12/19 15:15 08/11/19 15:14 Vancomycin/Sodium Chloride 275 ml @ 183.333 mls/hr Q24H IVPB 07/13/19 13:00 07/18/19 12:59 07/14/19 13:41 Zolpidem Tartrate (Ambien) 5 mg HSPRN PRN ORAL Insomnia 07/12/19 22:15 07/19/19 22:14 07/12/19 22:29 Ryan Bryan MD Jul 15, 2019 09:57
--- NOTE | 2019-07-15 11:09 | Cardiac Electrophysiology PN ---
Assessment/Plan Assessment/Plan 1. Hypertension. Currently on Cardizem 30 q 8 and p.r.n. clonidine 2. PAF. In SR on Dig and Cardizem. 2. Lower extremity cellulitis and sepsis, on IV antibiotic.WBC down 21 to 11K 3. History of congestive heart failure. Echocardiogram EF 65% and troponin negative 4. Psychosis, on Risperdal. DW RN Subjective Subjective In sinus tach 112. No more atrial fib.Was agitated and got Haldol and Ativan Objective Last 24 Hour Vital Signs Date Time Temp Pulse Resp B/P (MAP) Pulse Ox O2 Delivery O2 Flow Rate FiO2 07/15/19 10:34 83 18 98 Nasal Cannula 2.0 28 07/15/19 10:34 93 18 98 Nasal Cannula 2.0 28 07/15/19 09:03 100 07/15/19 08:00 97.9 100 19 133/51 (78) 96 07/15/19 07:45 101 07/15/19 05:46 79 125/72 07/15/19 04:00 72 07/15/19 04:00 97.6 82 16 128/76 (93) 95 07/15/19 00:00 97.3 68 16 98/54 (69) 96 07/15/19 00:00 72 07/14/19 22:00 75 121/67 07/14/19 21:30 Nasal Cannula 2.0 28 07/14/19 21:30 2.0 28 07/14/19 21:00 Nasal Cannula 2.0 07/14/19 20:00 98 07/14/19 20:00 97.7 80 18 130/75 (93) 95 07/14/19 16:00 97.7 100 18 138/65 (89) 97 07/14/19 15:09 111 07/14/19 13:40 96 142/92 07/14/19 12:00 96.4 96 20 142/92 (109) 98 07/14/19 11:33 100 Intake and Output 07/14/19 07/15/19 19:00 07:00 Intake Total 570.000 ml 60 ml Balance 570.000 ml 60 ml Intake Oral 240 ml 60 ml IV Total 330.000 ml # Voids 4 3 Microbiology Date/Time Source Procedure Growth Status 07/12/19 13:13 Blood Blood Culture - Preliminary NO GROWTH AFTER 48 HOURS Resulted 07/12/19 13:00 Blood Blood Culture - Preliminary NO GROWTH AFTER 48 HOURS Resulted 07/12/19 15:16 Nasal Nares MRSA Culture - Final NO METHICILLIN RESISTANT STAPH AUREUS... Complete 07/12/19 15:16 Rectum - Final NO CARBAPENEM-RESISTANT ENTEROBACTERI... Complete 07/12/19 15:16 Rectum VRE Culture - Final NO VANCOMYCIN RESISTANT ENTEROCOCCUS ... Complete Objective HEAD AND NECK: No JVD. LUNGS: Clear. CARDIOVASCULAR: Regular, S1 and S2 with no gallop or murmur. ABDOMEN: Soft. EXTREMITIES: No pitting edema except for cellulitis of the legs. Derek Salcido MD Jul 15, 2019 11:09
[2019-07-15 12:00] VITALS: BP 134/56
[2019-07-15 12:40] LABS: ANION GAP 10 mmol/L (5-15); BLOOD UREA NITROGEN 9 mg/dL (7-18); CARBON DIOXIDE 28 MMOL/L (21-32); CHLORIDE 97 MMOL/L (98-107); CREATININE 0.8 MG/DL (0.55-1.30); POTASSIUM 3.8 MMOL/L (3.5-5.1); SODIUM 134 MMOL/L (136-145)
[2019-07-15 13:01] LABS: BASOPHILS % (AUTO) 0.8 % (0.0-2.0); EOSINOPHILS % (AUTO) 2.1 % (0.0-3.0); HEMATOCRIT 34.4 % (37.0-47.0); HEMOGLOBIN 10.9 G/DL (12.0-16.0); LYMPHOCYTES % (AUTO) 20.7 % (20.0-45.0); MEAN CORPUSCULAR VOLUME 86 FL (80-99); MONOCYTES % (AUTO) 3.3 % (1.0-10.0); NEUTROPHILS % (AUTO) 73.1 % (45.0-75.0); PLATELET COUNT 492 K/UL (150-450); RED BLOOD COUNT 4.01 M/UL (4.20-5.40); RED CELL DISTRIBUTION WIDTH 13.9 % (11.6-14.8); WHITE BLOOD COUNT 11.7 K/UL (4.8-10.8)
--- NOTE | 2019-07-15 13:40 | NUR ---
CASE MANAGEMENT:REVIEW 07/15/19 SI: SEPSIS. CELLULITIS. NEW ONSET AFIB 97.9 93 18 133/51 98% ON 2L/NC WBC+11.7 H/H-10.9/34.4 IS: IV VANCOMYCIN Q12 IV ROCEPHIN Q24 DIGOXIN PO QD CARDIZEM PO Q8HRS ASA PO QD SYMBICORT IMH BID NEURONTIN PO Q8HRS RISPERDAL PO Q12 HEPARIN SQ Q12 : TELEMETRY STATUS DCP: FROM [facility] PLAN: EXPERIENCING BEHAVORIAL ISSUES AT THIS TIME
[2019-07-15] MEDS: Vancomycin 500mg/D5W 110ml IVPB SCH ×2 (14:23)
--- NOTE | 2019-07-15 15:09 | Surgery Progress Note ---
Surgery Progress Note Subjective Additional Comments labs stable exam stable comfortable wbc still 11k Objective Last 24 Hour Vital Signs Date Time Temp Pulse Resp B/P (MAP) Pulse Ox O2 Delivery O2 Flow Rate FiO2 07/15/19 14:22 97 134/56 07/15/19 12:00 98.3 97 19 134/56 (82) 97 07/15/19 11:42 96 07/15/19 10:34 83 18 98 Nasal Cannula 2.0 28 07/15/19 10:34 93 18 98 Nasal Cannula 2.0 28 07/15/19 09:03 100 07/15/19 09:00 Nasal Cannula 2.0 07/15/19 08:00 97.9 100 19 133/51 (78) 96 07/15/19 07:45 101 07/15/19 05:46 79 125/72 07/15/19 04:00 72 07/15/19 04:00 97.6 82 16 128/76 (93) 95 07/15/19 00:00 97.3 68 16 98/54 (69) 96 07/15/19 00:00 72 07/14/19 22:00 75 121/67 07/14/19 21:30 Nasal Cannula 2.0 28 07/14/19 21:30 2.0 28 07/14/19 21:00 Nasal Cannula 2.0 07/14/19 20:00 98 07/14/19 20:00 97.7 80 18 130/75 (93) 95 07/14/19 16:00 97.7 100 18 138/65 (89) 97 07/14/19 15:09 111 I&O Intake and Output 07/14/19 07/15/19 19:00 07:00 Intake Total 570.000 ml 60 ml Balance 570.000 ml 60 ml Intake Oral 240 ml 60 ml IV Total 330.000 ml # Voids 4 3 Dressing: dry Wound: clean Cardiovascular: RSR Respiratory: clear Abdomen: soft, flat, non-tender, present bowel sounds Extremities: edema, no tenderness, no cyanosis, other Laboratory Tests Test 07/15/19 12:05 White Blood Count 11.7 K/UL (4.8-10.8) H Red Blood Count 4.01 M/UL (4.20-5.40) L Hemoglobin 10.9 G/DL (12.0-16.0) L Hematocrit 34.4 % (37.0-47.0) L Mean Corpuscular Volume 86 FL (80-99) Mean Corpuscular Hemoglobin 27.1 PG (27.0-31.0) Mean Corpuscular Hemoglobin Concent 31.6 G/DL (32.0-36.0) L Red Cell Distribution Width 13.9 % (11.6-14.8) Platelet Count 492 K/UL (150-450) H Mean Platelet Volume 4.9 FL (6.5-10.1) L Neutrophils (%) (Auto) 73.1 % (45.0-75.0) Lymphocytes (%) (Auto) 20.7 % (20.0-45.0) Monocytes (%) (Auto) 3.3 % (1.0-10.0) Eosinophils (%) (Auto) 2.1 % (0.0-3.0) Basophils (%) (Auto) 0.8 % (0.0-2.0) Sodium Level 134 MMOL/L (136-145) L Potassium Level 3.8 MMOL/L (3.5-5.1) Chloride Level 97 MMOL/L (98-107) L Carbon Dioxide Level 28 MMOL/L (21-32) Anion Gap 10 mmol/L (5-15) Blood Urea Nitrogen 9 mg/dL (7-18) Creatinine 0.8 MG/DL (0.55-1.30) Estimat Glomerular Filtration Rate > 60 mL/min (>60) Glucose Level 117 MG/DL (74-106) H Calcium Level 9.0 MG/DL (8.5-10.1) Vancomycin Level Trough 8.7 ug/mL (5.0-12.0) Plan Problems: (1) Cellulitis Assessment & Plan: This is a 74-year-old female with multiple medical comorbidities and psych history who presents with right lower extremity cellulitis potentially secondary to trauma. Patient identified to have multiple scabs and superficial open wounds on her right anterior tibial lower extremity potentially seemingly from hitting it against the bedpost. Patient states that there was something sharp in her bed she kept trying to kick at it. She is not very reliable when it comes to history. Wound evaluated, significant leukocytosis on antibiotics as per infectious disease, imaging noted No acute debridement or surgical invention indicated at this time. Cellulitis seemingly improving. Leukocytosis improving Continue with IV antibiotics Wash wounds daily with normal saline, apply bacitracin and nonadherent foam dressing Physical therapy gait eval Nutritional optimization We will follow with recommendations thank you for let me participate in patient' s care MASD in folds of both breasts extending into both R and L axillae. Skin is grossly erythematous and moist. Mild odor noted. Abd folds are clean and dry. Multiple resolving skin tears that are dry and scabbed both upper extremities. Non-blanching erythema without induration sacrum. Dry scabbed wound noted just inferior to R knee . On lindsay R tibia is an elongated scabbed wound with surrounding erythema which extends to lindsay,lateral,posterior R tibia and distally into R foot.RLE and R foot slightly swollen and Skin temp is elevated. No odor or exudate noted from wound. Non-blanching erythema without fluctuance R and L heels. Tx.Plan: Wash both breasts with soap and water. Pat dry. Apply Light dusting of Phytoplex Antifungal powder Twice Daily. Apply Moisture Barrier Paste to Sacrum. Cover with Optifoam drsg. Change every 3 days and prn. Swab Wound R tibia with Betadine. Cover with Optifoam drsg Daily and prn. Apply Cavilon Skin Barrier to both heels. Cover each heel with Optifoam drsg. Change every 7 days and prn. Reposition at least every 2hours or as tolerated. Off-load heels with Pillow. Rmao Simms Jul 15, 2019 15:09
[2019-07-15 16:00] VITALS: BP 129/63
[2019-07-15] MEDS: QUEtiapine 200mg tab ORAL SCH (17:22)
[2019-07-15] MEDS: cefTRIAXone 2 GM in NS 55 ML IVPB SCH (17:22)
--- NOTE | 2019-07-15 17:30 | Consultation ---
DATE OF CONSULTATION: 07/15/2019 CONSULTING PHYSICIAN: Rut Warren M.D. HISTORY OF PRESENT ILLNESS: This is a 74-year-old female patient who came to the hospital complaining of depression, anxiety, and mood lability. The patient initially was admitted to the hospital because of right lower extremity cellulitis, edema, and sepsis. She came here from [facility] because she has been highly agitated, combative, and assaultive on the unit, but refused treatment, and has extreme psychomotor agitation. That is why, there was a daily psychiatric consultation requested. PAST MEDICAL HISTORY: She has a history of lower extremity cellulitis and anemia. ALLERGIES: To Wellbutrin, BuSpar, Prozac, and Latuda. PSYCHOTROPIC MEDICATIONS: When she came in, she is normally on psychotropic regimen consisting of Risperdal. SUBSTANCE ABUSE HISTORY: No history of any drug or alcohol use. PAIN ASSESSMENT: 07/04 pain. DEVELOPMENTAL PROBLEMS: Denies. FAMILY PSYCHIATRIC HISTORY: No known family psychiatric history. SOCIAL HISTORY: She lives in [facility]. Financially supported by [employer] and Medicare. MENTAL STATUS EXAMINATION: This is a 74-year-old female. Appearance is disheveled. Attitude is irritable and agitated. Affect is labile. Intellect is poor because she does not know current events and does not know last four presidents. Mood, depressed and anxious. Motor activity, psychomotor agitation. Attention span is poor because she cannot do serial sevens or spell world backwards. Orientation x2. She is oriented to person and place, not to time and situation. Speech, nonsensical. Thought process, disorganized and illogical. Thought content, she has auditory hallucinations and paranoid delusions. Perception is poor because of perceptional disturbances, auditory hallucinations, and paranoid delusions. Abstract reasoning is poor because she does not understand proverbs, only has concrete thinking. Insight is poor because she does not recognize having a psych disorder. Judgment is poor, she does not accept consequences for her actions and she cannot make medical decision for herself. Short-term memory, 3/3 recall after 5-minute delay with good short-term memory. Long-term memory is poor because she has difficult to recall any long-term events in her life such as high school that she went to. Her gait is normal. There are no abnormal movements. There is no history of . DIAGNOSES: 1. Paranoid schizophrenia, acute exacerbation. 2. There is no secondary. 3. Medical - anemia, atrial fibrillation, leukocytosis, sepsis, and cellulitis. 4. Psychosocial stressors, financial. 5. Functional impairment, severe. PLAN: Plan for this patient is to treat her with Haldol Decanoate 25 mg IM every month, Risperdal 3 mg twice a day, Zyprexa 10 mg three times a day, and Ativan 1 mg every 6 hours p.r.n. anxiety and agitation. 20 minutes of cognitive therapy to help her identify autonomic negative thoughts and help her convert negative thoughts to more positive thoughts to reduce depression, anxiety, and mood lability. ESTIMATED LENGTH OF STAY: Three to seven days. PROGNOSIS: Poor. Chart reviewed. Discussed with staff. Seen and assessed at bedside. Rut Warren M.D. DR: LIZETH JOB#: [id number] CC:
--- NOTE | 2019-07-15 19:20 | NUR ---
NURSE NOTES: Received pt and report from LEXY Ji. Observed pt awake in bed with both eyes closed; currently screaming and agitated. Pt is A/Ox2. classroom monitor is in placed, IV site intact, asymptomatic, and patent. Pt is on 2L NC. Pt is on bilateral soft wrist restraints; pulses and sensations are present, skin is intact, no swelling noted. Will monitor pt closely. Bed is in the lowest position and locked. Call light and bedside table is within reach. No signs/symptoms of acute distress noted at this time. Will continue plan of care.
--- NOTE | 2019-07-15 19:30 | NUR ---
HAND-OFF: Report given to RN HETAL. Pt is awake and stable.
[2019-07-15 20:00] VITALS: BP 141/96
[2019-07-15] MEDS: Sennosides 8.6mg tab ORAL SCH (21:14)
--- NOTE | 2019-07-15 22:58 | NUR ---
HAND-OFF: Report given to LEXY Meier. Plan of care endorsed.
[2019-07-16] VITALS: BP_SYST 135; BP_SYST 95; BP_DIAS 56; BP_DIAS 73
[2019-07-16] MEDS: Vancomycin 500mg/D5W 110ml IVPB SCH ×4 (01:41→14:38)
[2019-07-16 04:00] VITALS: BP 100/68
[2019-07-16] MEDS: dilTIAZem HCl 30mg tab ORAL SCH ×3 (06:00→21:20)
--- NOTE | 2019-07-16 07:45 | NUR ---
NURSE NOTES: Received report from Renea. patient appeared sedated at this time. On 2L O2 NC. no acute resp distress noted. HOB elevated for adequate ventilation and for aspiration precaution. On bilateral soft wrists restraints for safety and potential combativeness and removing devices. IV ccess JOSE 22G SL patent and intact. bed is locked and is in the lowest position, siderails are up x3. call light is within reach. call light within easy reach. will continue to monitor.
[2019-07-16 07:57] VITALS: BP 114/71
--- NOTE | 2019-07-16 07:58 | NUR ---
HAND-OFF: Report given to KAYLEIGH MARTÍNEZ.
[2019-07-16 08:14] LABS: ANION GAP 6 mmol/L (5-15); BLOOD UREA NITROGEN 11 mg/dL (7-18); CALCIUM 9.8 MG/DL (8.5-10.1); CARBON DIOXIDE 34 MMOL/L (21-32); CHLORIDE 106 MMOL/L (98-107); CREATININE 0.7 MG/DL (0.55-1.30); POTASSIUM 4.5 MMOL/L (3.5-5.1); SODIUM 146 MMOL/L (136-145)
[2019-07-16 08:24] LABS: EOSINOPHILS % (AUTO) 4.6 % (0.0-3.0); HEMATOCRIT 33.8 % (37.0-47.0); HEMOGLOBIN 10.8 G/DL (12.0-16.0); LYMPHOCYTES % (AUTO) 21.6 % (20.0-45.0); MEAN CORPUSCULAR VOLUME 86 FL (80-99); MONOCYTES % (AUTO) 5.7 % (1.0-10.0); NEUTROPHILS % (AUTO) 67.2 % (45.0-75.0); PLATELET COUNT 521 K/UL (150-450); RED BLOOD COUNT 3.94 M/UL (4.20-5.40); RED CELL DISTRIBUTION WIDTH 14.2 % (11.6-14.8); WHITE BLOOD COUNT 7.6 K/UL (4.8-10.8)
[2019-07-16] MEDS: Benztropine 1mg tab ORAL SCH ×2 (08:40→17:03)
[2019-07-16] MEDS: QUEtiapine 200mg tab ORAL SCH ×3 (08:42→17:03)
[2019-07-16] MEDS: OLANZapine 10mg tab ORAL SCH ×3 (08:43→21:00)
--- NOTE | 2019-07-16 08:43 | General Progress Note ---
Assessment/Plan Problem List: (1) Sepsis ICD Codes: A41.9 - Sepsis, unspecified organism SNOMED: 68934116 (2) Leukocytosis ICD Codes: D72.829 - Elevated white blood cell count, unspecified SNOMED: 671592828, 107175240 (3) New onset a-fib ICD Codes: I48.91 - Unspecified atrial fibrillation SNOMED: 26600893 (4) Cellulitis ICD Codes: L03.90 - Cellulitis, unspecified SNOMED: 274101814 Qualifiers: Qualified Codes: L03.115 - Cellulitis of right lower limb (5) Anemia ICD Codes: D64.9 - Anemia, unspecified SNOMED: 723282011 Status: stable, progressing Assessment/Plan: o2pulm tx abx wound care cardio f/u cbc bmp am Subjective Constitutional: Reports: weakness Allergies: Coded Allergies: BUPROPION (Verified Allergy, Unknown, 07/12/19) BUSPIRONE (Verified Allergy, Unknown, 07/12/19) FLUOXETINE (Verified Allergy, Unknown, 07/12/19) LURASIDONE (Verified Allergy, Unknown, 07/12/19) All Systems: reviewed and negative except above Subjective o2nc calm in bed Objective Last 24 Hour Vital Signs Date Time Temp Pulse Resp B/P (MAP) Pulse Ox O2 Delivery O2 Flow Rate FiO2 07/16/19 07:57 96.8 78 18 114/71 (85) 97 07/16/19 06:00 77 110/73 07/16/19 04:00 97.8 71 18 100/68 (79) 98 07/16/19 04:00 68 07/16/19 00:00 98.6 91 16 95/56 (69) 98 07/16/19 00:00 69 07/15/19 21:15 89 141/86 07/15/19 21:00 Nasal Cannula 2.0 07/15/19 20:56 91 21 98 Nasal Cannula 2.0 28 07/15/19 20:55 91 21 97 Nasal Cannula 2.0 28 07/15/19 20:55 97 Nasal Cannula 2.0 28 07/15/19 20:00 102 07/15/19 20:00 97.3 89 18 141/96 (111) 97 07/15/19 16:00 98.6 97 20 129/63 (85) 99 07/15/19 15:47 101 07/15/19 14:22 97 134/56 07/15/19 12:00 98.3 97 19 134/56 (82) 97 07/15/19 11:42 96 07/15/19 10:34 83 18 98 Nasal Cannula 2.0 28 07/15/19 10:34 93 18 98 Nasal Cannula 2.0 28 07/15/19 09:03 100 07/15/19 09:00 Nasal Cannula 2.0 Intake and Output 07/15/19 07/16/19 19:00 07:00 Intake Total 610 ml Balance 610 ml IV Total 110 ml Other 500 ml # Voids 1 Laboratory Tests 07/15/19 12:05: White Blood Count 11.7H, Red Blood Count 4.01L, Hemoglobin 10.9L, Hematocrit 34.4L, Mean Corpuscular Volume 86, Mean Corpuscular Hemoglobin 27.1, Mean Corpuscular Hemoglobin Concent 31.6L, Red Cell Distribution Width 13.9, Platelet Count 492H, Mean Platelet Volume 4.9L, Neutrophils (%) (Auto) 73.1, Lymphocytes (%) (Auto) 20.7, Monocytes (%) (Auto) 3.3, Eosinophils (%) (Auto) 2.1, Basophils (%) (Auto) 0.8, Sodium Level 134L, Potassium Level 3.8, Chloride Level 97L, Carbon Dioxide Level 28, Anion Gap 10, Blood Urea Nitrogen 9, Creatinine 0.8, Estimat Glomerular Filtration Rate > 60, Glucose Level 117H, Calcium Level 9.0, Vancomycin Level Trough 8.7 07/16/19 06:37: White Blood Count [Pending], Red Blood Count [Pending], Hemoglobin [Pending], Hematocrit [Pending], Mean Corpuscular Volume [Pending], Mean Corpuscular Hemoglobin [Pending], Mean Corpuscular Hemoglobin Concent [Pending], Red Cell Distribution Width [Pending], Platelet Count [Pending], Mean Platelet Volume [ Pending], Neutrophils (%) (Auto) [Pending], Lymphocytes (%) (Auto) [Pending], Monocytes (%) (Auto) [Pending], Eosinophils (%) (Auto) [Pending], Basophils (%) (Auto) [Pending], Sodium Level 146#H, Potassium Level 4.5, Chloride Level 106, Carbon Dioxide Level 34H, Anion Gap 6, Blood Urea Nitrogen 11, Creatinine 0.7, Estimat Glomerular Filtration Rate > 60, Glucose Level 96, Calcium Level 9.8 Height (Feet): 5 Height (Inches): 2.00 Weight (Pounds): 144 General Appearance: lethargic EENT: normal ENT inspection Neck: normal alignment Cardiovascular: normal peripheral pulses, normal rate, regular rhythm Respiratory/Chest: chest wall non-tender, lungs clear, normal breath sounds Abdomen: normal bowel sounds, non tender, soft Extremities: normal inspection Edema: no edema noted Arm (L), no edema noted Arm (R), no edema noted Leg (L), no edema noted Leg (R), no edema noted Pedal (L), no edema noted Pedal (R), no edema noted Generalized Neurologic: motor weakness Skin: normal pigmentation, warm/dry Objective r smith dressing c&d Guy Booth DO Jul 16, 2019 08:43
--- NOTE | 2019-07-16 08:47 | NUR ---
In bed, Bilat. soft restraints wrist intact. B/P=114/71. will continue to monitor. calm at this time.
[2019-07-16] MEDS: Heparin 5000 units/ml inj SUBQ SCH ×2 (08:49→21:18)
--- NOTE | 2019-07-16 09:50 | Infectious Diseases Prog Note ---
Assessment/Plan Assessment/Plan ASSESSMENT: The patient is a 74-year-old female with: Leukocytosis, sp SP Sepsis. Right lower extremity cellulitis. Rule out bacteremia. Rule out probable urinary tract infection. History of COPD. Heart failure. Hypertension. Diabetes. Parkinson disease. Hyperlipidemia. Arthritis. GERD. Anemia. Primary schizophrenia. Anxiety. Osteoporosis. PLAN: Cont patient on IV vancomycin and Rocephin # 5/7 CBC and BMP. Monitor cultures (blood, urine) Subjective Allergies: Coded Allergies: BUPROPION (Verified Allergy, Unknown, 07/12/19) BUSPIRONE (Verified Allergy, Unknown, 07/12/19) FLUOXETINE (Verified Allergy, Unknown, 07/12/19) LURASIDONE (Verified Allergy, Unknown, 07/12/19) Subjective Afebrile No Leukocytosis Objective Vital Signs Last 24 Hour Vital Signs Date Time Temp Pulse Resp B/P (MAP) Pulse Ox O2 Delivery O2 Flow Rate FiO2 07/16/19 09:19 Nasal Cannula 2.0 07/16/19 09:17 74 07/16/19 09:11 86 18 96 Nasal Cannula 2.0 28 07/16/19 09:10 85 18 96 Nasal Cannula 2.0 28 07/16/19 09:09 96 Nasal Cannula 2.0 28 07/16/19 07:57 96.8 78 18 114/71 (85) 97 07/16/19 06:00 77 110/73 07/16/19 04:00 97.8 71 18 100/68 (79) 98 07/16/19 04:00 68 07/16/19 00:00 98.6 91 16 95/56 (69) 98 07/16/19 00:00 69 07/15/19 21:15 89 141/86 07/15/19 21:00 Nasal Cannula 2.0 07/15/19 20:56 91 21 98 Nasal Cannula 2.0 28 07/15/19 20:55 91 21 97 Nasal Cannula 2.0 28 07/15/19 20:55 97 Nasal Cannula 2.0 28 07/15/19 20:00 102 07/15/19 20:00 97.3 89 18 141/96 (111) 97 07/15/19 16:00 98.6 97 20 129/63 (85) 99 07/15/19 15:47 101 07/15/19 14:22 97 134/56 07/15/19 12:00 98.3 97 19 134/56 (82) 97 07/15/19 11:42 96 07/15/19 10:34 83 18 98 Nasal Cannula 2.0 28 07/15/19 10:34 93 18 98 Nasal Cannula 2.0 28 Height (Feet): 5 Height (Inches): 2.00 Weight (Pounds): 144 HEENT: normocephalic, atraumatic Respiratory/Chest: normal breath sounds, no respiratory distress, no accessory muscle use Cardiovascular: normal rate, regular rhythm Abdomen: soft, non tender Laboratory Tests Test 07/15/19 12:05 07/16/19 06:37 White Blood Count 11.7 K/UL (4.8-10.8) H 7.6 K/UL (4.8-10.8) Red Blood Count 4.01 M/UL (4.20-5.40) L 3.94 M/UL (4.20-5.40) L Hemoglobin 10.9 G/DL (12.0-16.0) L 10.8 G/DL (12.0-16.0) L Hematocrit 34.4 % (37.0-47.0) L 33.8 % (37.0-47.0) L Mean Corpuscular Volume 86 FL (80-99) 86 FL (80-99) Mean Corpuscular Hemoglobin 27.1 PG (27.0-31.0) 27.5 PG (27.0-31.0) Mean Corpuscular Hemoglobin Concent 31.6 G/DL (32.0-36.0) L 32.0 G/DL (32.0-36.0) Red Cell Distribution Width 13.9 % (11.6-14.8) 14.2 % (11.6-14.8) Platelet Count 492 K/UL (150-450) H 521 K/UL (150-450) H Mean Platelet Volume 4.9 FL (6.5-10.1) L 5.1 FL (6.5-10.1) L Neutrophils (%) (Auto) 73.1 % (45.0-75.0) 67.2 % (45.0-75.0) Lymphocytes (%) (Auto) 20.7 % (20.0-45.0) 21.6 % (20.0-45.0) Monocytes (%) (Auto) 3.3 % (1.0-10.0) 5.7 % (1.0-10.0) Eosinophils (%) (Auto) 2.1 % (0.0-3.0) 4.6 % (0.0-3.0) H Basophils (%) (Auto) 0.8 % (0.0-2.0) 1.0 % (0.0-2.0) Sodium Level 134 MMOL/L (136-145) L 146 MMOL/L (136-145) #H Potassium Level 3.8 MMOL/L (3.5-5.1) 4.5 MMOL/L (3.5-5.1) Chloride Level 97 MMOL/L (98-107) L 106 MMOL/L (98-107) Carbon Dioxide Level 28 MMOL/L (21-32) 34 MMOL/L (21-32) H Anion Gap 10 mmol/L (5-15) 6 mmol/L (5-15) Blood Urea Nitrogen 9 mg/dL (7-18) 11 mg/dL (7-18) Creatinine 0.8 MG/DL (0.55-1.30) 0.7 MG/DL (0.55-1.30) Estimat Glomerular Filtration Rate > 60 mL/min (>60) > 60 mL/min (>60) Glucose Level 117 MG/DL (74-106) H 96 MG/DL (74-106) Calcium Level 9.0 MG/DL (8.5-10.1) 9.8 MG/DL (8.5-10.1) Vancomycin Level Trough 8.7 ug/mL (5.0-12.0) Current Medications Medications (Trade) Dose Ordered Sig/Sundeep Route PRN Reason Start Time Stop Time Status Last Admin Dose Admin Aspirin (Ecotrin) 81 mg DAILY ORAL 07/13/19 09:00 08/27/19 08:59 07/15/19 09:02 Benztropine Mesylate (Cogentin) 1 mg BID ORAL 07/12/19 18:00 20 17:59 07/15/19 17:22 Budesonide/ Formoterol Fumarate (Symbicort 160/ 4.5) 1 puff BIDRT INH 07/12/19 22:00 10/10/19 21:59 07/16/19 09:07 Ceftriaxone Sodium 2 gm/ Sodium Chloride 55 ml @ 110 mls/hr Q24H IVPB 07/12/19 17:00 07/19/19 16:59 07/15/19 17:22 Clonidine HCl (Catapres Tab) 0.1 mg Q6H PRN ORAL SBP > 160mmHg 07/12/19 17:00 10/10/19 16:59 Dextromethorphan/ Quinidine (Nuedexta Capsule) 1 cap DAILY ORAL 07/13/19 09:00 10/11/19 08:59 07/15/19 09:02 Digoxin (Lanoxin) 0.125 mg DAILY ORAL 07/14/19 09:00 10/12/19 08:59 07/15/19 09:03 Diltiazem HCl (Cardizem) 30 mg EVERY 8 HOURS ORAL 07/13/19 14:00 08/12/19 13:59 07/15/19 21:15 Docusate Sodium (Colace) 250 mg DAILY ORAL 07/13/19 09:00 08/12/19 08:59 07/15/19 09:03 Famotidine (Pepcid) 20 mg DAILY ORAL 07/13/19 09:00 10/11/19 08:59 07/15/19 09:02 Ferrous Sulfate (Feosol) 325 mg DAILY ORAL 07/13/19 09:00 10/11/19 08:59 07/15/19 09:02 Gabapentin (Neurontin) 100 mg Q8HR ORAL 07/12/19 22:00 08/11/19 21:59 07/15/19 21:14 Heparin Sodium (Porcine) (Heparin 5000 units/ml) 5,000 units EVERY 12 HOURS SUBQ 07/12/19 21:00 08/26/19 20:59 07/16/19 08:49 Lorazepam (Ativan) 1 mg Q6H PRN ORAL For Anxiety 07/12/19 17:00 07/19/19 16:59 07/14/19 17:16 Morphine Sulfate (Morphine Sulfate) 2 mg Q4H PRN IVP PAIN 4-10 07/12/19 17:00 07/19/19 16:59 Multivitamins Therapeutic (Therapeutic Multivitamin) 1 ea DAILY ORAL 07/13/19 09:00 08/12/19 08:59 07/15/19 09:02 Olanzapine (ZyPREXA) 10 mg BID ORAL 07/15/19 09:00 08/29/19 08:59 07/15/19 17:23 Olanzapine (ZyPREXA) 10 mg QHS ORAL 07/12/19 21:00 08/26/19 20:59 07/15/19 21:13 Quetiapine Fumarate (SEROqueL) 200 mg TID ORAL 07/15/19 18:00 08/29/19 17:59 07/15/19 17:22 Risperidone (RisperDAL) 3 mg Q12HR ORAL 07/12/19 21:00 08/26/19 20:59 07/15/19 21:14 Sennosides (Senokot) 8.6 mg BEDTIME ORAL 07/12/19 21:00 08/11/19 20:59 07/15/19 21:14 Vancomycin HCl (Vanco rx to dose) 1 ea DAILY PRN MISC Per rx protocol 07/12/19 15:15 08/11/19 15:14 Vancomycin HCl 500 mg/Dextrose 110 ml @ 110 mls/hr Q12H IVPB 07/15/19 14:00 07/20/19 13:59 07/16/19 01:41 Zolpidem Tartrate (Ambien) 5 mg HSPRN PRN ORAL Insomnia 07/12/19 22:15 07/19/19 22:14 07/12/19 22:29 Kg Brunner MD Jul 16, 2019 09:50
[2019-07-16] MEDS: Nuedexta Capsule 20/10mg ORAL SCH (11:52)
[2019-07-16] MEDS: Digoxin 0.125mg tab ORAL SCH (11:52)
[2019-07-16] MEDS: LORazepam 1mg tab ORAL PRN (11:53)
[2019-07-16] MEDS: Aspirin EC 81mg tab ORAL SCH (11:53)
[2019-07-16] MEDS: Multivitamin w/Minerals tab ORAL SCH (11:53)
[2019-07-16] MEDS: Docusate 250mg cap ORAL SCH (11:53)
[2019-07-16 12:00] VITALS: BP 108/61
--- NOTE | 2019-07-16 13:35 | Cardiac Electrophysiology PN ---
Assessment/Plan Assessment/Plan 1. Hypertension. On Cardizem 30 q 8 and p.r.n. clonidine 2. PAF. In SR on Dig and Cardizem. Keep off anticoagulation for fall risk 3. Lower extremity cellulitis and sepsis, on IV antibiotic.WBC down 21 to 11K 4. History of congestive heart failure. Echocardiogram EF 65% and troponin negative 5. Psychosis, on Risperdal. DW RN DC planning Subjective Subjective In sinus tach 112. No more atrial fib.Agitated screaming and in restraints. Got Haldol and Ativan by Dr. Rut Warren. Awaiting bed at [facility] Objective Last 24 Hour Vital Signs Date Time Temp Pulse Resp B/P (MAP) Pulse Ox O2 Delivery O2 Flow Rate FiO2 07/16/19 12:59 106 07/16/19 12:00 96.6 61 20 108/61 (77) 100 07/16/19 11:52 61 07/16/19 09:19 Nasal Cannula 2.0 07/16/19 09:17 74 07/16/19 09:11 86 18 96 Nasal Cannula 2.0 28 07/16/19 09:10 85 18 96 Nasal Cannula 2.0 28 07/16/19 09:09 96 Nasal Cannula 2.0 28 07/16/19 07:57 96.8 78 18 114/71 (85) 97 07/16/19 06:00 77 110/73 07/16/19 04:00 97.8 71 18 100/68 (79) 98 07/16/19 04:00 68 07/16/19 00:00 98.6 91 16 95/56 (69) 98 07/16/19 00:00 69 07/15/19 21:15 89 141/86 07/15/19 21:00 Nasal Cannula 2.0 07/15/19 20:56 91 21 98 Nasal Cannula 2.0 28 07/15/19 20:55 91 21 97 Nasal Cannula 2.0 28 07/15/19 20:55 97 Nasal Cannula 2.0 28 07/15/19 20:00 102 07/15/19 20:00 97.3 89 18 141/96 (111) 97 07/15/19 16:00 98.6 97 20 129/63 (85) 99 07/15/19 15:47 101 07/15/19 14:22 97 134/56 Intake and Output 07/15/19 07/16/19 19:00 07:00 Intake Total 610 ml Balance 610 ml IV Total 110 ml Other 500 ml # Voids 1 Laboratory Tests Test 07/16/19 06:37 White Blood Count 7.6 K/UL (4.8-10.8) Red Blood Count 3.94 M/UL (4.20-5.40) L Hemoglobin 10.8 G/DL (12.0-16.0) L Hematocrit 33.8 % (37.0-47.0) L Mean Corpuscular Volume 86 FL (80-99) Mean Corpuscular Hemoglobin 27.5 PG (27.0-31.0) Mean Corpuscular Hemoglobin Concent 32.0 G/DL (32.0-36.0) Red Cell Distribution Width 14.2 % (11.6-14.8) Platelet Count 521 K/UL (150-450) H Mean Platelet Volume 5.1 FL (6.5-10.1) L Neutrophils (%) (Auto) 67.2 % (45.0-75.0) Lymphocytes (%) (Auto) 21.6 % (20.0-45.0) Monocytes (%) (Auto) 5.7 % (1.0-10.0) Eosinophils (%) (Auto) 4.6 % (0.0-3.0) H Basophils (%) (Auto) 1.0 % (0.0-2.0) Sodium Level 146 MMOL/L (136-145) #H Potassium Level 4.5 MMOL/L (3.5-5.1) Chloride Level 106 MMOL/L (98-107) Carbon Dioxide Level 34 MMOL/L (21-32) H Anion Gap 6 mmol/L (5-15) Blood Urea Nitrogen 11 mg/dL (7-18) Creatinine 0.7 MG/DL (0.55-1.30) Estimat Glomerular Filtration Rate > 60 mL/min (>60) Glucose Level 96 MG/DL (74-106) Calcium Level 9.8 MG/DL (8.5-10.1) Objective HEAD AND NECK: No JVD. LUNGS: Clear. CARDIOVASCULAR: Regular, S1 and S2 with no gallop or murmur. ABDOMEN: Soft. EXTREMITIES: No pitting edema except for cellulitis of the legs. Derek Salcido MD 21, 2020 13:35
[2019-07-16 16:00] VITALS: BP 117/59
[2019-07-16] MEDS: cefTRIAXone 2 GM in NS 55 ML IVPB SCH (16:55)
[2019-07-16] MEDS ORDERED: LORazepam Inj 2mg/ml 1ml IM SCH (17:00)
[2019-07-16] MEDS ORDERED: DiphenhydrAMINE 50mg/ml Inj IM SCH (17:00)
[2019-07-16] MEDS ORDERED: Haloperidol Decanoate (Long Acting) 50mg Inj IM SCH (17:15)
--- NOTE | 2019-07-16 18:58 | NUR ---
NURSE NOTES: reassesed VS current HR 77, B/P 112/49. kept hob elevated. On O2 2L via NC. no acute resp distress noted. will cont to monitor.
--- NOTE | 2019-07-16 19:15 | NUR ---
HAND-OFF: Report given to Monique.
--- NOTE | 2019-07-16 19:19 | Surgery Progress Note ---
Surgery Progress Note Subjective Additional Comments No acute events overnight. Afebrile, hemodynamically stable but tachycardic at times, leukocytosis resolved. States she feels better. No nausea vomiting fever chills. Objective Last 24 Hour Vital Signs Date Time Temp Pulse Resp B/P (MAP) Pulse Ox O2 Delivery O2 Flow Rate FiO2 07/16/19 18:16 102 07/16/19 16:00 96.4 68 19 117/59 (78) 98 07/16/19 13:37 106 108/61 07/16/19 12:59 106 07/16/19 12:00 96.6 61 20 108/61 (77) 100 07/16/19 11:52 61 07/16/19 09:19 Nasal Cannula 2.0 07/16/19 09:17 74 07/16/19 09:11 86 18 96 Nasal Cannula 2.0 28 07/16/19 09:10 85 18 96 Nasal Cannula 2.0 28 07/16/19 09:09 96 Nasal Cannula 2.0 28 07/16/19 07:57 96.8 78 18 114/71 (85) 97 07/16/19 06:00 77 110/73 07/16/19 04:00 97.8 71 18 100/68 (79) 98 07/16/19 04:00 68 07/16/19 00:00 98.6 91 16 95/56 (69) 98 07/16/19 00:00 69 07/15/19 21:15 89 141/86 07/15/19 21:00 Nasal Cannula 2.0 07/15/19 20:56 91 21 98 Nasal Cannula 2.0 28 07/15/19 20:55 91 21 97 Nasal Cannula 2.0 28 07/15/19 20:55 97 Nasal Cannula 2.0 28 07/15/19 20:00 102 07/15/19 20:00 97.3 89 18 141/96 (111) 97 I&O Intake and Output 07/15/19 07/16/19 19:00 07:00 Intake Total 610 ml Balance 610 ml IV Total 110 ml Other 500 ml # Voids 1 Dressing: dry Wound: clean Cardiovascular: RSR Respiratory: clear Abdomen: soft, non-tender, present bowel sounds Extremities: edema, no tenderness, no cyanosis, other Laboratory Tests Test 07/16/19 06:37 White Blood Count 7.6 K/UL (4.8-10.8) Red Blood Count 3.94 M/UL (4.20-5.40) L Hemoglobin 10.8 G/DL (12.0-16.0) L Hematocrit 33.8 % (37.0-47.0) L Mean Corpuscular Volume 86 FL (80-99) Mean Corpuscular Hemoglobin 27.5 PG (27.0-31.0) Mean Corpuscular Hemoglobin Concent 32.0 G/DL (32.0-36.0) Red Cell Distribution Width 14.2 % (11.6-14.8) Platelet Count 521 K/UL (150-450) H Mean Platelet Volume 5.1 FL (6.5-10.1) L Neutrophils (%) (Auto) 67.2 % (45.0-75.0) Lymphocytes (%) (Auto) 21.6 % (20.0-45.0) Monocytes (%) (Auto) 5.7 % (1.0-10.0) Eosinophils (%) (Auto) 4.6 % (0.0-3.0) H Basophils (%) (Auto) 1.0 % (0.0-2.0) Sodium Level 146 MMOL/L (136-145) #H Potassium Level 4.5 MMOL/L (3.5-5.1) Chloride Level 106 MMOL/L (98-107) Carbon Dioxide Level 34 MMOL/L (21-32) H Anion Gap 6 mmol/L (5-15) Blood Urea Nitrogen 11 mg/dL (7-18) Creatinine 0.7 MG/DL (0.55-1.30) Estimat Glomerular Filtration Rate > 60 mL/min (>60) Glucose Level 96 MG/DL (74-106) Calcium Level 9.8 MG/DL (8.5-10.1) Plan Problems: (1) Cellulitis Assessment & Plan: This is a 74-year-old female with multiple medical comorbidities and psych history who presents with right lower extremity cellulitis potentially secondary to trauma. Patient identified to have multiple scabs and superficial open wounds on her right anterior tibial lower extremity potentially seemingly from hitting it against the bedpost. Patient states that there was something sharp in her bed she kept trying to kick at it. She is not very reliable when it comes to history. Wound evaluated, significant leukocytosis on antibiotics as per infectious disease, imaging noted No acute debridement or surgical invention indicated at this time. Cellulitis seemingly improving. Leukocytosis improving Continue with IV antibiotics Wash wounds daily with normal saline, apply bacitracin and nonadherent foam dressing Physical therapy gait eval Nutritional optimization We will follow with recommendations thank you for let me participate in patient' s care MASD in folds of both breasts extending into both R and L axillae. Skin is grossly erythematous and moist. Mild odor noted. Abd folds are clean and dry. Multiple resolving skin tears that are dry and scabbed both upper extremities. Non-blanching erythema without induration sacrum. Dry scabbed wound noted just inferior to R knee . On lindsay R tibia is an elongated scabbed wound with surrounding erythema which extends to lindsay,lateral,posterior R tibia and distally into R foot.RLE and R foot slightly swollen and Skin temp is elevated. No odor or exudate noted from wound. Non-blanching erythema without fluctuance R and L heels. Tx.Plan: Wash both breasts with soap and water. Pat dry. Apply Light dusting of Phytoplex Antifungal powder Twice Daily. Apply Moisture Barrier Paste to Sacrum. Cover with Optifoam drsg. Change every 3 days and prn. Swab Wound R tibia with Betadine. Cover with Optifoam drsg Daily and prn. Apply Cavilon Skin Barrier to both heels. Cover each heel with Optifoam drsg. Change every 7 days and prn. Reposition at least every 2hours or as tolerated. Off-load heels with Pillow. DAILY ESTIMATED NEEDS: Needs based on Pulmonary 53.9kg abw 25-30 kcals/kg 9034-3925 total kcals 1-1.5 g protein/kg 54-81 g total protein 25-30 mL/kg 7874-8917 total fluid mLs NUTRITION DIAGNOSIS: Swallowing/ chewing difficulties r/t psych history/ poor dentition as evidenced by pt is edentulous, on ms finely chopped diet diet, variable po intake. CURRENT DIET: Low Na ms finely chopped PO DIET RECOMMENDATIONS: Regular diet/ texture per CABLE ASSEMBLER ADDITIONAL RECOMMENDATIONS: 1) Obtain a calibrated bed scale wt 2) Per MD h/o DM, rec accuchecks for eval, need for ssi 3) Add Ensure qd w/ current variable po intake 4) As able, hold psych meds/ sedatives w/ meal time Ramo Simms Jul 16, 2019 19:18
--- NOTE | 2019-07-16 19:30 | Progress Note ---
DATE: 07/16/2019 SUBJECTIVE: A 74-year-old female with cellulitis of right lower extremity and right lower extremity edema. She states she still has a lot of psychomotor agitation, very irritable, agitated, mood labile, she had leukocytosis, atrial fibrillation, cellulitis, and anemia. MENTAL STATUS EXAMINATION: This is a 74-year-old female. Appearance is disheveled. Attitude, irritable and agitated. Affect, guarded and restricted. Intellect poor. Mood, depressed and anxious. Motor activity, psychomotor agitation. Attention span is poor. Orientation x2. Speech is pressured. Thought process, disorganized and illogical. Insight and judgment is poor. DIAGNOSIS: Paranoid schizophrenia with acute exacerbation. PLAN: Treat her with Zyprexa 10 twice a day, Seroquel 200 mg three times a day, Risperdal 3 mg twice a day, and she is also on Zyprexa 10 mg nightly. Twenty minutes of cognitive behavioral therapy to help her identify automatic negative thoughts and help her convert negative thoughts to more positive thoughts to reduce depression, anxiety, and mood lability. Chart reviewed. Discussed with staff. Seen and assessed at bedside. Rut Warren M.D. DR: DEVIKA JOB#: [id number] CC:
[2019-07-16 20:00] VITALS: BP 155/59
[2019-07-16] MEDS: Sennosides 8.6mg tab ORAL SCH (21:22)
[2019-07-17] VITALS (7 sets, daily range): BP systolic 100–134; BP diastolic 64–82
[2019-07-17] MEDS: Vancomycin 500mg/D5W 110ml IVPB SCH ×4 (04:20→13:40)
--- NOTE | 2019-07-17 04:21 | NUR ---
Laboratory was late at drawing timed Vanco trough. Result came back normal. Went to pyxis to look for medication in fridge. No medication in fridge. Called pharmacy to print label. Went to pickup med in house sup night locker. Vanco 500 unavailable. Went to ER to pickup medication in their pyxis. Gave medication to patient.
[2019-07-17 04:44] LABS: BASOPHILS % (AUTO) 0.9 % (0.0-2.0); EOSINOPHILS % (AUTO) 6.1 % (0.0-3.0); HEMATOCRIT 36.1 % (37.0-47.0); HEMOGLOBIN 11.7 G/DL (12.0-16.0); LYMPHOCYTES % (AUTO) 25.8 % (20.0-45.0); MEAN CORPUSCULAR VOLUME 86 FL (80-99); MONOCYTES % (AUTO) 6.7 % (1.0-10.0); NEUTROPHILS % (AUTO) 60.5 % (45.0-75.0); PLATELET COUNT 496 K/UL (150-450); RED BLOOD COUNT 4.22 M/UL (4.20-5.40); RED CELL DISTRIBUTION WIDTH 14.1 % (11.6-14.8); WHITE BLOOD COUNT 8.8 K/UL (4.8-10.8)
[2019-07-17 04:48] LABS: ANION GAP 7 mmol/L (5-15); BLOOD UREA NITROGEN 10 mg/dL (7-18); CALCIUM 9.5 MG/DL (8.5-10.1); CARBON DIOXIDE 32 MMOL/L (21-32); CHLORIDE 100 MMOL/L (98-107); CREATININE 0.7 MG/DL (0.55-1.30); POTASSIUM 4.2 MMOL/L (3.5-5.1); SODIUM 139 MMOL/L (136-145)
[2019-07-17] MEDS: dilTIAZem HCl 30mg tab ORAL SCH ×3 (06:13→20:25)
--- NOTE | 2019-07-17 09:13 | General Progress Note ---
Assessment/Plan Problem List: (1) Sepsis ICD Codes: A41.9 - Sepsis, unspecified organism SNOMED: 41748248 (2) Leukocytosis ICD Codes: D72.829 - Elevated white blood cell count, unspecified SNOMED: 554590859, 342013084 (3) New onset a-fib ICD Codes: I48.91 - Unspecified atrial fibrillation SNOMED: 87099094 (4) Cellulitis ICD Codes: L03.90 - Cellulitis, unspecified SNOMED: 227039239 Qualifiers: Qualified Codes: L03.115 - Cellulitis of right lower limb (5) Anemia ICD Codes: D64.9 - Anemia, unspecified SNOMED: 342447784 Status: stable, progressing Assessment/Plan: o2pulm tx abx wound care cardio f/u cbc bmp am dc plan Subjective Constitutional: Reports: weakness Allergies: Coded Allergies: BUPROPION (Verified Allergy, Unknown, 07/12/19) BUSPIRONE (Verified Allergy, Unknown, 07/12/19) FLUOXETINE (Verified Allergy, Unknown, 07/12/19) LURASIDONE (Verified Allergy, Unknown, 07/12/19) All Systems: reviewed and negative except above Subjective o2nc calm in bed Objective Last 24 Hour Vital Signs Date Time Temp Pulse Resp B/P (MAP) Pulse Ox O2 Delivery O2 Flow Rate FiO2 07/17/19 09:00 Nasal Cannula 2.0 07/17/19 07:15 99 Nasal Cannula 2.0 28 07/17/19 06:13 75 118/82 07/17/19 04:00 97.2 76 19 100/65 (77) 98 07/17/19 04:00 76 07/17/19 00:00 96.4 90 19 118/82 (94) 98 07/17/19 00:00 75 07/16/19 21:51 93 18 99 Nasal Cannula 2.0 28 07/16/19 21:48 92 18 99 Nasal Cannula 2.0 28 07/16/19 21:20 102 117/59 07/16/19 21:00 Nasal Cannula 2.0 07/16/19 20:00 72 07/16/19 20:00 97.0 90 19 155/59 (91) 98 07/16/19 19:53 97 Nasal Cannula 2.0 28 07/16/19 18:16 102 07/16/19 16:00 96.4 68 19 117/59 (78) 98 07/16/19 13:37 106 108/61 07/16/19 12:59 106 07/16/19 12:00 96.6 61 20 108/61 (77) 100 07/16/19 11:52 61 07/16/19 09:19 Nasal Cannula 2.0 07/16/19 09:17 74 Intake and Output 07/16/19 07/17/19 19:00 07:00 Intake Total 360 ml 2250 ml Output Total 1600 ml Balance -1240 ml 2250 ml Intake Oral 140 ml 2000 ml IV Total 220 ml Other 250 ml Output Urine Total 1600 ml # Voids 5 6 Laboratory Tests 07/17/19 02:30: White Blood Count 8.8, Red Blood Count 4.22, Hemoglobin 11.7L, Hematocrit 36.1L , Mean Corpuscular Volume 86, Mean Corpuscular Hemoglobin 27.6, Mean Corpuscular Hemoglobin Concent 32.3, Red Cell Distribution Width 14.1, Platelet Count 496H, Mean Platelet Volume 5.0L, Neutrophils (%) (Auto) 60.5, Lymphocytes (%) (Auto) 25.8, Monocytes (%) (Auto) 6.7, Eosinophils (%) (Auto) 6.1H, Basophils (%) (Auto) 0.9, Sodium Level 139, Potassium Level 4.2, Chloride Level 100, Carbon Dioxide Level 32, Anion Gap 7, Blood Urea Nitrogen 10, Creatinine 0.7, Estimat Glomerular Filtration Rate > 60, Glucose Level 87, Calcium Level 9.5, Vancomycin Level Trough 9.8 Height (Feet): 5 Height (Inches): 2.00 Weight (Pounds): 144 General Appearance: lethargic EENT: normal ENT inspection Neck: normal alignment Cardiovascular: normal peripheral pulses, normal rate, regular rhythm Respiratory/Chest: chest wall non-tender, lungs clear, normal breath sounds Abdomen: normal bowel sounds, non tender, soft Extremities: normal inspection Edema: no edema noted Arm (L), no edema noted Arm (R), no edema noted Leg (L), no edema noted Leg (R), no edema noted Pedal (L), no edema noted Pedal (R), no edema noted Generalized Neurologic: motor weakness Skin: normal pigmentation, warm/dry Objective r smith dressing c&d Booth,Guy Chi-Jen DO Jul 17, 2019 09:13
--- NOTE | 2019-07-17 09:35 | NUR ---
NURSE NOTES Recvd report from [facility]. Pt is asleep lying in bed. Iv is on left wrist 22g. Bilat soft restraints are on pt. Pt is on NC @ 2L with no sign of sob or resp distress. bed alarm is on, bed in lowest locked position, call light within reach.
--- NOTE | 2019-07-17 09:43 | NUR ---
NURSE NOTES: RECVD NEW ADMISSION. Pt is AOX2 (name and place), pt was seen by Dr Oshea. Admitting dr is Orestes, dx: CHF, AMS, ARF. Pt is on room air with no sign of sob or resp distress. Instructed to place arvizu by dr Oshea and ok to keep bilat soft wrist restraints as patient is extremely confused and disoriented. Pt belonging is only clothes. belonging list was reviewed with CUSTODIAL ENGINEER. ekg monitor placed on patient. bed alarm is on, call light within reach, will continue with plan of care Addendum: 07/17/19 at 0954 by ANDREE MORALES RN wrong patient
[2019-07-17] MEDS: Benztropine 1mg tab ORAL SCH ×2 (10:04→17:31)
[2019-07-17] MEDS: Multivitamin w/Minerals tab ORAL SCH (10:04)
[2019-07-17] MEDS: Aspirin EC 81mg tab ORAL SCH (10:05)
[2019-07-17] MEDS: Digoxin 0.125mg tab ORAL SCH (10:05)
[2019-07-17] MEDS: QUEtiapine 200mg tab ORAL SCH ×3 (10:05→17:31)
[2019-07-17] MEDS: OLANZapine 10mg tab ORAL SCH ×3 (10:05→21:00)
[2019-07-17] MEDS: Docusate 250mg cap ORAL SCH (10:05)
[2019-07-17] MEDS: Nuedexta Capsule 20/10mg ORAL SCH (10:06)
[2019-07-17] MEDS: Heparin 5000 units/ml inj SUBQ SCH ×2 (10:07→20:27)
--- NOTE | 2019-07-17 12:11 | Surgery Progress Note ---
Surgery Progress Note Subjective Additional Comments no acute events comfortable exam stable dressings okay cellulitis improving Objective Last 24 Hour Vital Signs Date Time Temp Pulse Resp B/P (MAP) Pulse Ox O2 Delivery O2 Flow Rate FiO2 07/17/19 10:29 91 18 97 Nasal Cannula 2.0 28 07/17/19 10:29 91 18 97 Nasal Cannula 2.0 28 07/17/19 10:05 73 07/17/19 09:11 96.3 77 19 127/67 (87) 100 07/17/19 09:00 Nasal Cannula 2.0 07/17/19 08:00 96.3 77 19 127/69 (88) 100 07/17/19 08:00 86 07/17/19 07:15 99 Nasal Cannula 2.0 28 07/17/19 06:13 75 118/82 07/17/19 04:00 97.2 76 19 100/65 (77) 98 07/17/19 04:00 76 07/17/19 00:00 96.4 90 19 118/82 (94) 98 07/17/19 00:00 75 07/16/19 21:51 93 18 99 Nasal Cannula 2.0 28 07/16/19 21:48 92 18 99 Nasal Cannula 2.0 28 07/16/19 21:20 102 117/59 07/16/19 21:00 Nasal Cannula 2.0 07/16/19 20:00 72 07/16/19 20:00 97.0 90 19 155/59 (91) 98 07/16/19 19:53 97 Nasal Cannula 2.0 28 07/16/19 18:16 102 07/16/19 16:00 96.4 68 19 117/59 (78) 98 07/16/19 13:37 106 108/61 07/16/19 12:59 106 I&O Intake and Output 07/16/19 07/17/19 19:00 07:00 Intake Total 360 ml 2250 ml Output Total 1600 ml Balance -1240 ml 2250 ml Intake Oral 140 ml 2000 ml IV Total 220 ml Other 250 ml Output Urine Total 1600 ml # Voids 5 6 Laboratory Tests Test 07/17/19 02:30 White Blood Count 8.8 K/UL (4.8-10.8) Red Blood Count 4.22 M/UL (4.20-5.40) Hemoglobin 11.7 G/DL (12.0-16.0) L Hematocrit 36.1 % (37.0-47.0) L Mean Corpuscular Volume 86 FL (80-99) Mean Corpuscular Hemoglobin 27.6 PG (27.0-31.0) Mean Corpuscular Hemoglobin Concent 32.3 G/DL (32.0-36.0) Red Cell Distribution Width 14.1 % (11.6-14.8) Platelet Count 496 K/UL (150-450) H Mean Platelet Volume 5.0 FL (6.5-10.1) L Neutrophils (%) (Auto) 60.5 % (45.0-75.0) Lymphocytes (%) (Auto) 25.8 % (20.0-45.0) Monocytes (%) (Auto) 6.7 % (1.0-10.0) Eosinophils (%) (Auto) 6.1 % (0.0-3.0) H Basophils (%) (Auto) 0.9 % (0.0-2.0) Sodium Level 139 MMOL/L (136-145) Potassium Level 4.2 MMOL/L (3.5-5.1) Chloride Level 100 MMOL/L (98-107) Carbon Dioxide Level 32 MMOL/L (21-32) Anion Gap 7 mmol/L (5-15) Blood Urea Nitrogen 10 mg/dL (7-18) Creatinine 0.7 MG/DL (0.55-1.30) Estimat Glomerular Filtration Rate > 60 mL/min (>60) Glucose Level 87 MG/DL (74-106) Calcium Level 9.5 MG/DL (8.5-10.1) Vancomycin Level Trough 9.8 ug/mL (5.0-12.0) Plan Problems: (1) Cellulitis Assessment & Plan: This is a 74-year-old female with multiple medical comorbidities and psych history who presents with right lower extremity cellulitis potentially secondary to trauma. Patient identified to have multiple scabs and superficial open wounds on her right anterior tibial lower extremity potentially seemingly from hitting it against the bedpost. Patient states that there was something sharp in her bed she kept trying to kick at it. She is not very reliable when it comes to history. Wound evaluated, significant leukocytosis on antibiotics as per infectious disease, imaging noted No acute debridement or surgical invention indicated at this time. Cellulitis seemingly improving. Leukocytosis improving Continue with IV antibiotics Wash wounds daily with normal saline, apply bacitracin and nonadherent foam dressing Physical therapy gait eval Nutritional optimization We will follow with recommendations thank you for let me participate in patient' s care MASD in folds of both breasts extending into both R and L axillae. Skin is grossly erythematous and moist. Mild odor noted. Abd folds are clean and dry. Multiple resolving skin tears that are dry and scabbed both upper extremities. Non-blanching erythema without induration sacrum. Dry scabbed wound noted just inferior to R knee . On lindsay R tibia is an elongated scabbed wound with surrounding erythema which extends to lindsay,lateral,posterior R tibia and distally into R foot.RLE and R foot slightly swollen and Skin temp is elevated. No odor or exudate noted from wound. Non-blanching erythema without fluctuance R and L heels. Tx.Plan: Wash both breasts with soap and water. Pat dry. Apply Light dusting of Phytoplex Antifungal powder Twice Daily. Apply Moisture Barrier Paste to Sacrum. Cover with Optifoam drsg. Change every 3 days and prn. Swab Wound R tibia with Betadine. Cover with Optifoam drsg Daily and prn. Apply Cavilon Skin Barrier to both heels. Cover each heel with Optifoam drsg. Change every 7 days and prn. Reposition at least every 2hours or as tolerated. Off-load heels with Pillow. DAILY ESTIMATED NEEDS: Needs based on Pulmonary 53.9kg abw 25-30 kcals/kg 9018-1619 total kcals 1-1.5 g protein/kg 54-81 g total protein 25-30 mL/kg 5263-8224 total fluid mLs NUTRITION DIAGNOSIS: Swallowing/ chewing difficulties r/t psych history/ poor dentition as evidenced by pt is edentulous, on ms finely chopped diet diet, variable po intake. CURRENT DIET: Low Na ms finely chopped PO DIET RECOMMENDATIONS: Regular diet/ texture per [employer]ELOPMENT MANAGER ADDITIONAL RECOMMENDATIONS: 1) Obtain a calibrated bed scale wt 2) Per MD h/o DM, rec accuchecks for eval, need for ssi 3) Add Ensure qd w/ current variable po intake 4) As able, hold psych meds/ sedatives w/ meal time Ramo Simms Jul 17, 2019 12:11
[2019-07-17] MEDS: cefTRIAXone 2 GM in NS 55 ML IVPB SCH (17:31)
[2019-07-17] MEDS: Sennosides 8.6mg tab ORAL SCH (20:25)
--- NOTE | 2019-07-17 22:30 | Progress Note ---
DATE: 07/17/2019 SUBJECTIVE: The patient is a 74-year-old patient with cellulitis of the right lower extremity and weakness. This patient is diagnosed with confusion. She is very agitated, irritable, mood labile in her room screaming all day with a lot of psychomotor agitation. MENTAL STATUS EXAMINATION: This is a 74-year-old female. Appearance is disheveled. Attitude, irritable and agitated. Affect, guarded and restricted. Intellect poor. Mood, depressed and anxious. Motor activity, psychomotor agitation. Attention span is poor. Orientation x2. Speech is pressured. Thought process, disorganized and illogical. Insight and judgment is poor. DIAGNOSIS: Paranoid schizophrenia with acute exacerbation. PLAN: Plan for this patient is to treat her with Zyprexa 10 twice a day and 10 mg nightly and then also treat this patient with Risperdal 3 mg q.12 hours, Seroquel 200 mg three times a day, Ativan 1 mg every 6 hours. p.r.n. anxiety and agitation, and Haldol Decanoate 50 mg IM. Chart reviewed. Discussed with staff. Seen and assessed in her room. Rut Warren M.D. DR: REENE JOB#: [id number] CC:
[2019-07-18] VITALS: BP 118/59
[2019-07-18] MEDS: Zolpidem 5mg tab ORAL PRN (00:10)
[2019-07-18] MEDS: Vancomycin 500mg/D5W 110ml IVPB SCH ×2 (02:35)
[2019-07-18] MEDS: LORazepam 1mg tab ORAL PRN (03:27)
[2019-07-18 04:32] VITALS: BP 152/93
[2019-07-18] MEDS: dilTIAZem HCl 30mg tab ORAL SCH ×3 (05:20→20:52)
[2019-07-18 08:00] VITALS: BP 131/61
--- NOTE | 2019-07-18 08:01 | Infectious Diseases Prog Note ---
Assessment/Plan Assessment/Plan ASSESSMENT: The patient is a 74-year-old female with: Leukocytosis, sp SP Sepsis. Right lower extremity cellulitis, Sp Rule out bacteremia. Rule out probable urinary tract infection. History of COPD. Heart failure. Hypertension. Diabetes. Parkinson disease. Hyperlipidemia. Arthritis. GERD. Anemia. Primary schizophrenia. Anxiety. Osteoporosis. PLAN: DC IV vancomycin and Rocephin # 7/7 CBC and BMP. ok to DC form ID stand point, off of AB Rx Subjective Allergies: Coded Allergies: BUPROPION (Verified Allergy, Unknown, 07/12/19) BUSPIRONE (Verified Allergy, Unknown, 07/12/19) FLUOXETINE (Verified Allergy, Unknown, 07/12/19) LURASIDONE (Verified Allergy, Unknown, 07/12/19) Subjective Afebrile no acute event Objective Vital Signs Last 24 Hour Vital Signs Date Time Temp Pulse Resp B/P (MAP) Pulse Ox O2 Delivery O2 Flow Rate FiO2 07/18/19 05:20 105 152/93 07/18/19 04:32 96.2 105 18 152/93 (112) 100 07/18/19 04:00 108 07/18/19 00:00 96.6 82 18 118/59 (78) 100 07/18/19 00:00 90 07/17/19 21:00 Nasal Cannula 2.0 07/17/19 20:46 97 20 98 Nasal Cannula 2.0 28 07/17/19 20:45 97 20 98 Nasal Cannula 2.0 28 07/17/19 20:44 98 Nasal Cannula 2.0 28 07/17/19 20:25 88 134/76 07/17/19 20:00 96.4 82 18 123/75 (91) 100 07/17/19 16:00 88 07/17/19 16:00 97.2 65 18 134/76 (95) 100 07/17/19 13:39 89 116/64 07/17/19 12:00 89 07/17/19 12:00 97.2 88 18 116/64 (81) 100 07/17/19 10:29 91 18 97 Nasal Cannula 2.0 28 07/17/19 10:29 91 18 97 Nasal Cannula 2.0 28 07/17/19 10:05 73 07/17/19 09:11 96.3 77 19 127/67 (87) 100 07/17/19 09:00 Nasal Cannula 2.0 Height (Feet): 5 Height (Inches): 2.00 Weight (Pounds): 144 HEENT: anicteric Respiratory/Chest: no respiratory distress Cardiovascular: regular rhythm Abdomen: no organomegaly Current Medications Medications (Trade) Dose Ordered Sig/Sundeep Route PRN Reason Start Time Stop Time Status Last Admin Dose Admin Aspirin (Ecotrin) 81 mg DAILY ORAL 07/13/19 09:00 08/27/19 08:59 07/17/19 10:05 Benztropine Mesylate (Cogentin) 1 mg BID ORAL 07/12/19 18:00 08/11/19 17:59 07/17/19 17:31 Budesonide/ Formoterol Fumarate (Symbicort 160/ 4.5) 1 puff BIDRT INH 07/12/19 22:00 10/10/19 21:59 07/17/19 20:44 Ceftriaxone Sodium 2 gm/ Sodium Chloride 55 ml @ 110 mls/hr Q24H IVPB 07/12/19 17:00 07/19/19 16:59 07/17/19 17:31 Clonidine HCl (Catapres Tab) 0.1 mg Q6H PRN ORAL SBP > 160mmHg 07/12/19 17:00 10/10/19 16:59 Dextromethorphan/ Quinidine (Nuedexta Capsule) 1 cap DAILY ORAL 07/13/19 09:00 10/11/19 08:59 07/17/19 10:06 Digoxin (Lanoxin) 0.125 mg DAILY ORAL 07/14/19 09:00 10/12/19 08:59 07/17/19 10:05 Diltiazem HCl (Cardizem) 30 mg EVERY 8 HOURS ORAL 07/13/19 14:00 08/12/19 13:59 07/18/19 05:20 Docusate Sodium (Colace) 250 mg DAILY ORAL 07/13/19 09:00 08/12/19 08:59 07/17/19 10:05 Famotidine (Pepcid) 20 mg DAILY ORAL 07/13/19 09:00 10/11/19 08:59 07/17/19 10:06 Ferrous Sulfate (Feosol) 325 mg DAILY ORAL 07/13/19 09:00 10/11/19 08:59 07/17/19 10:05 Gabapentin (Neurontin) 100 mg Q8HR ORAL 07/12/19 22:00 08/11/19 21:59 07/18/19 05:20 Heparin Sodium (Porcine) (Heparin 5000 units/ml) 5,000 units EVERY 12 HOURS SUBQ 07/12/19 21:00 08/26/19 20:59 07/17/19 20:27 Lorazepam (Ativan) 1 mg Q6H PRN ORAL For Anxiety 07/12/19 17:00 07/19/19 16:59 07/18/19 03:27 Morphine Sulfate (Morphine Sulfate) 2 mg Q4H PRN IVP PAIN 4-10 07/12/19 17:00 07/19/19 16:59 Multivitamins Therapeutic (Therapeutic Multivitamin) 1 ea DAILY ORAL 07/13/19 09:00 08/12/19 08:59 07/17/19 10:04 Olanzapine (ZyPREXA) 10 mg BID ORAL 07/15/19 09:00 08/29/19 08:59 07/17/19 17:31 Olanzapine (ZyPREXA) 10 mg QHS ORAL 07/12/19 21:00 08/26/19 20:59 07/15/19 21:13 Quetiapine Fumarate (SEROqueL) 200 mg TID ORAL 07/15/19 18:00 08/29/19 17:59 07/17/19 17:31 Risperidone (RisperDAL) 3 mg Q12HR ORAL 07/12/19 21:00 08/26/19 20:59 07/17/19 20:26 Sennosides (Senokot) 8.6 mg BEDTIME ORAL 07/12/19 21:00 08/11/19 20:59 07/17/19 20:25 Vancomycin HCl (Vanco rx to dose) 1 ea DAILY PRN MISC Per rx protocol 07/12/19 15:15 08/11/19 15:14 Vancomycin HCl 500 mg/Dextrose 110 ml @ 110 mls/hr Q12H IVPB 07/15/19 14:00 07/20/19 13:59 07/18/19 02:35 Zolpidem Tartrate (Ambien) 5 mg HSPRN PRN ORAL Insomnia 07/12/19 22:15 07/19/19 22:14 07/18/19 00:10 Ryan Bryan MD Jul 18, 2019 08:01
[2019-07-18] MEDS: Nuedexta Capsule 20/10mg ORAL SCH (08:47)
[2019-07-18] MEDS: OLANZapine 10mg tab ORAL SCH ×3 (08:48→21:00)
[2019-07-18] MEDS: Docusate 250mg cap ORAL SCH (08:48)
[2019-07-18] MEDS: Benztropine 1mg tab ORAL SCH ×2 (08:48→18:16)
[2019-07-18] MEDS: Multivitamin w/Minerals tab ORAL SCH (08:48)
[2019-07-18] MEDS: QUEtiapine 200mg tab ORAL SCH ×3 (08:48→18:16)
[2019-07-18] MEDS: Digoxin 0.125mg tab ORAL SCH (08:48)
[2019-07-18] MEDS: Aspirin EC 81mg tab ORAL SCH (08:48)
[2019-07-18] MEDS: Heparin 5000 units/ml inj SUBQ SCH ×2 (08:49→20:54)
--- NOTE | 2019-07-18 08:57 | NUR ---
CASE MANAGEMENT:REVIEW 07/18/19 SI: SEPSIS. RLE CELLULITIS. NEW ONSET AFIB PRIMARY SCHIZOPHRENIA 96.1 105 18 131/61 98% ON 2L/NC IS: DIGOXIN PO QD CARDIZEM PO Q8 ASA PO QD SEROQUEL PO TID ZYPREXA PO BID RISPERDAL PO Q12 NUEDEXTA PO QD SYMBICORT INH BID NEURONTIN PO Q8HRS COGENTIN PO BID ATIVAN PO Q6HRS PRN : TELEMETRY STATUS DCP: [facility] PLAN: OBTAIN CLEARANCE FROM CONSULTANTS FOR DISCHARGE
[2019-07-18 09:05] LABS: BASOPHILS % (AUTO) 0.8 % (0.0-2.0); EOSINOPHILS % (AUTO) 2.2 % (0.0-3.0); HEMATOCRIT 36.4 % (37.0-47.0); HEMOGLOBIN 11.8 G/DL (12.0-16.0); MEAN CORPUSCULAR VOLUME 86 FL (80-99); MONOCYTES % (AUTO) 3.3 % (1.0-10.0); NEUTROPHILS % (AUTO) 76.8 % (45.0-75.0); PLATELET COUNT 580 K/UL (150-450); RED BLOOD COUNT 4.24 M/UL (4.20-5.40); RED CELL DISTRIBUTION WIDTH 14.3 % (11.6-14.8); WHITE BLOOD COUNT 9.8 K/UL (4.8-10.8)
--- NOTE | 2019-07-18 09:06 | NUR ---
NURSE NOTES Recvd report from [facility]. Pt is asleep lying in bed. IV is on right wrist 22g. Pt is on NC @ 2L with no sign of sob or resp distress. bed alarm is on, bed in lowest locked position, call light within reach.
--- NOTE | 2019-07-18 09:08 | NUR ---
DISCHARGE PLANNING NURSING TO OBTAIN DISCHARGE CLEARANCE FROM CONSULTANTS
--- NOTE | 2019-07-18 09:21 | General Progress Note ---
Assessment/Plan Problem List: (1) Sepsis ICD Codes: A41.9 - Sepsis, unspecified organism SNOMED: 82473580 (2) Leukocytosis ICD Codes: D72.829 - Elevated white blood cell count, unspecified SNOMED: 020569435, 796736798 (3) New onset a-fib ICD Codes: I48.91 - Unspecified atrial fibrillation SNOMED: 76785838 (4) Cellulitis ICD Codes: L03.90 - Cellulitis, unspecified SNOMED: 335588361 Qualifiers: Qualified Codes: L03.115 - Cellulitis of right lower limb (5) Anemia ICD Codes: D64.9 - Anemia, unspecified SNOMED: 542535845 Status: stable, progressing Assessment/Plan: o2pulm tx abx wound care cardio f/u cbc bmp am dc plan w hh Subjective Constitutional: Reports: weakness Allergies: Coded Allergies: BUPROPION (Verified Allergy, Unknown, 07/12/19) BUSPIRONE (Verified Allergy, Unknown, 07/12/19) FLUOXETINE (Verified Allergy, Unknown, 07/12/19) LURASIDONE (Verified Allergy, Unknown, 07/12/19) All Systems: reviewed and negative except above Subjective o2nc calm in bed Objective Last 24 Hour Vital Signs Date Time Temp Pulse Resp B/P (MAP) Pulse Ox O2 Delivery O2 Flow Rate FiO2 07/18/19 08:48 72 07/18/19 08:46 Nasal Cannula 2.0 07/18/19 08:00 96.1 74 18 131/61 (84) 98 07/18/19 05:20 105 152/93 07/18/19 04:32 96.2 105 18 152/93 (112) 100 07/18/19 04:00 108 07/18/19 00:00 96.6 82 18 118/59 (78) 100 07/18/19 00:00 90 07/17/19 21:00 Nasal Cannula 2.0 07/17/19 20:46 97 20 98 Nasal Cannula 2.0 28 07/17/19 20:45 97 20 98 Nasal Cannula 2.0 28 07/17/19 20:44 98 Nasal Cannula 2.0 28 07/17/19 20:25 88 134/76 07/17/19 20:00 96.4 82 18 123/75 (91) 100 07/17/19 16:00 88 07/17/19 16:00 97.2 65 18 134/76 (95) 100 07/17/19 13:39 89 116/64 07/17/19 12:00 89 07/17/19 12:00 97.2 88 18 116/64 (81) 100 07/17/19 10:29 91 18 97 Nasal Cannula 2.0 28 07/17/19 10:29 91 18 97 Nasal Cannula 2.0 28 07/17/19 10:05 73 Intake and Output 07/17/19 07/18/19 19:00 07:00 Intake Total 360 ml 1000 ml Output Total 1200 ml Balance 360 ml -200 ml Intake Oral 360 ml Other 1000 ml Output Urine Total 1200 ml # Voids 3 Laboratory Tests 07/18/19 08:45: White Blood Count 9.8, Red Blood Count 4.24, Hemoglobin 11.8L, Hematocrit 36.4L , Mean Corpuscular Volume 86, Mean Corpuscular Hemoglobin 27.8, Mean Corpuscular Hemoglobin Concent 32.4, Red Cell Distribution Width 14.3, Platelet Count 580H, Mean Platelet Volume 5.2L, Neutrophils (%) (Auto) 76.8H, Lymphocytes (%) (Auto) 17.0L, Monocytes (%) (Auto) 3.3, Eosinophils (%) (Auto) 2.2, Basophils (%) (Auto) 0.8, Erythrocyte Sedimentation Rate [Pending], Sodium Level [Pending], Potassium Level [Pending], Chloride Level [Pending], Carbon Dioxide Level [Pending], Blood Urea Nitrogen [Pending], Creatinine [Pending], Estimat Glomerular Filtration Rate [Pending], Glucose Level [Pending], Calcium Level [Pending], C-Reactive Protein, Quantitative [Pending], Digoxin Level [ Pending] Height (Feet): 5 Height (Inches): 2.00 Weight (Pounds): 144 General Appearance: lethargic EENT: normal ENT inspection Neck: normal alignment Cardiovascular: normal peripheral pulses, normal rate, regular rhythm Respiratory/Chest: chest wall non-tender, lungs clear, normal breath sounds Abdomen: normal bowel sounds, non tender, soft Extremities: normal inspection Edema: no edema noted Arm (L), no edema noted Arm (R), no edema noted Leg (L), no edema noted Leg (R), no edema noted Pedal (L), no edema noted Pedal (R), no edema noted Generalized Neurologic: motor weakness Skin: normal pigmentation, warm/dry Objective r smith son c&Guy Fischer Jul 18, 2019 09:21
--- NOTE | 2019-07-18 09:35 | NUR ---
*-*DISCHARGE PLANNING*-* CLINICALS HAS BEEN FAXED TO: [facility] P: [phone] F: [phone] WAITING FOR ACCEPTANCE
[2019-07-18 12:00] VITALS: BP 115/58
--- NOTE | 2019-07-18 13:24 | Cardiac Electrophysiology PN ---
Assessment/Plan Assessment/Plan 1. Hypertension. On Cardizem 30 q 8 and p.r.n. clonidine 2. PAF. In SR on Dig and Cardizem. Keep off anticoagulation for fall risk 3. Lower extremity cellulitis and sepsis, on IV antibiotic.WBC down 21 to 11K 4. History of congestive heart failure. Echocardiogram EF 65% and troponin negative 5. Psychosis, on Risperdal. DW RN OK to DC Subjective Subjective Remianed in SR with PAC's. No more atrial fib. Off restraints. Awaiting bed at [facility] Objective Last 24 Hour Vital Signs Date Time Temp Pulse Resp B/P (MAP) Pulse Ox O2 Delivery O2 Flow Rate FiO2 07/18/19 10:34 74 18 98 Nasal Cannula 2.0 28 07/18/19 10:34 74 18 98 Nasal Cannula 2.0 28 07/18/19 08:48 72 07/18/19 08:46 Nasal Cannula 2.0 07/18/19 08:00 86 07/18/19 08:00 96.1 74 18 131/61 (84) 98 07/18/19 07:00 98 Nasal Cannula 2.0 28 07/18/19 05:20 105 152/93 07/18/19 04:32 96.2 105 18 152/93 (112) 100 07/18/19 04:00 108 07/18/19 00:00 96.6 82 18 118/59 (78) 100 07/18/19 00:00 90 07/17/19 21:00 Nasal Cannula 2.0 07/17/19 20:46 97 20 98 Nasal Cannula 2.0 28 07/17/19 20:45 97 20 98 Nasal Cannula 2.0 28 07/17/19 20:44 98 Nasal Cannula 2.0 28 07/17/19 20:25 88 134/76 07/17/19 20:00 96.4 82 18 123/75 (91) 100 07/17/19 16:00 88 07/17/19 16:00 97.2 65 18 134/76 (95) 100 07/17/19 13:39 89 116/64 Intake and Output 07/17/19 07/18/19 19:00 07:00 Intake Total 360 ml 1000 ml Output Total 1200 ml Balance 360 ml -200 ml Intake Oral 360 ml Other 1000 ml Output Urine Total 1200 ml # Voids 3 Laboratory Tests Test 07/18/19 08:45 White Blood Count 9.8 K/UL (4.8-10.8) Red Blood Count 4.24 M/UL (4.20-5.40) Hemoglobin 11.8 G/DL (12.0-16.0) L Hematocrit 36.4 % (37.0-47.0) L Mean Corpuscular Volume 86 FL (80-99) Mean Corpuscular Hemoglobin 27.8 PG (27.0-31.0) Mean Corpuscular Hemoglobin Concent 32.4 G/DL (32.0-36.0) Red Cell Distribution Width 14.3 % (11.6-14.8) Platelet Count 580 K/UL (150-450) H Mean Platelet Volume 5.2 FL (6.5-10.1) L Neutrophils (%) (Auto) 76.8 % (45.0-75.0) H Lymphocytes (%) (Auto) 17.0 % (20.0-45.0) L Monocytes (%) (Auto) 3.3 % (1.0-10.0) Eosinophils (%) (Auto) 2.2 % (0.0-3.0) Basophils (%) (Auto) 0.8 % (0.0-2.0) Erythrocyte Sedimentation Rate 94 MM/HR (0-30) H C-Reactive Protein, Quantitative Pending Digoxin Level < 0.2 NG/ML (0.9-2.0) L Objective HEAD AND NECK: No JVD. LUNGS: Clear. CARDIOVASCULAR: Regular, S1 and S2 with no gallop or murmur. ABDOMEN: Soft. EXTREMITIES: No pitting edema except for cellulitis of the legs. Derek Salcido MD Jul 18, 2019 13:24
--- NOTE | 2019-07-18 14:51 | Surgery Progress Note ---
Surgery Progress Note Subjective Additional Comments finished abx course otherwise stable and comfortable wound improved cellulitis improved d/c planning Objective Last 24 Hour Vital Signs Date Time Temp Pulse Resp B/P (MAP) Pulse Ox O2 Delivery O2 Flow Rate FiO2 07/18/19 14:28 88 115/58 07/18/19 12:00 88 07/18/19 12:00 96.3 87 19 115/58 (77) 100 07/18/19 10:34 74 18 98 Nasal Cannula 2.0 28 07/18/19 10:34 74 18 98 Nasal Cannula 2.0 28 07/18/19 08:48 72 07/18/19 08:46 Nasal Cannula 2.0 07/18/19 08:00 86 07/18/19 08:00 96.1 74 18 131/61 (84) 98 07/18/19 07:00 98 Nasal Cannula 2.0 28 07/18/19 05:20 105 152/93 07/18/19 04:32 96.2 105 18 152/93 (112) 100 07/18/19 04:00 108 07/18/19 00:00 96.6 82 18 118/59 (78) 100 07/18/19 00:00 90 07/17/19 21:00 Nasal Cannula 2.0 07/17/19 20:46 97 20 98 Nasal Cannula 2.0 28 07/17/19 20:45 97 20 98 Nasal Cannula 2.0 28 07/17/19 20:44 98 Nasal Cannula 2.0 28 07/17/19 20:25 88 134/76 07/17/19 20:00 96.4 82 18 123/75 (91) 100 07/17/19 16:00 88 07/17/19 16:00 97.2 65 18 134/76 (95) 100 I&O Intake and Output 07/17/19 07/18/19 19:00 07:00 Intake Total 360 ml 1000 ml Output Total 1200 ml Balance 360 ml -200 ml Intake Oral 360 ml Other 1000 ml Output Urine Total 1200 ml # Voids 3 Dressing: dry Wound: clean Cardiovascular: RSR Respiratory: clear Abdomen: soft, non-tender, present bowel sounds Extremities: no cyanosis Laboratory Tests Test 07/18/19 08:45 White Blood Count 9.8 K/UL (4.8-10.8) Red Blood Count 4.24 M/UL (4.20-5.40) Hemoglobin 11.8 G/DL (12.0-16.0) L Hematocrit 36.4 % (37.0-47.0) L Mean Corpuscular Volume 86 FL (80-99) Mean Corpuscular Hemoglobin 27.8 PG (27.0-31.0) Mean Corpuscular Hemoglobin Concent 32.4 G/DL (32.0-36.0) Red Cell Distribution Width 14.3 % (11.6-14.8) Platelet Count 580 K/UL (150-450) H Mean Platelet Volume 5.2 FL (6.5-10.1) L Neutrophils (%) (Auto) 76.8 % (45.0-75.0) H Lymphocytes (%) (Auto) 17.0 % (20.0-45.0) L Monocytes (%) (Auto) 3.3 % (1.0-10.0) Eosinophils (%) (Auto) 2.2 % (0.0-3.0) Basophils (%) (Auto) 0.8 % (0.0-2.0) Erythrocyte Sedimentation Rate 94 MM/HR (0-30) H C-Reactive Protein, Quantitative Pending Digoxin Level < 0.2 NG/ML (0.9-2.0) L Plan Problems: (1) Cellulitis Assessment & Plan: This is a 74-year-old female with multiple medical comorbidities and psych history who presents with right lower extremity cellulitis potentially secondary to trauma. Patient identified to have multiple scabs and superficial open wounds on her right anterior tibial lower extremity potentially seemingly from hitting it against the bedpost. Patient states that there was something sharp in her bed she kept trying to kick at it. She is not very reliable when it comes to history. Wound evaluated, significant leukocytosis on antibiotics as per infectious disease, imaging noted No acute debridement or surgical invention indicated at this time. Cellulitis seemingly improving. Leukocytosis improving Continue with IV antibiotics Wash wounds daily with normal saline, apply bacitracin and nonadherent foam dressing Physical therapy gait eval Nutritional optimization We will follow with recommendations thank you for let me participate in patient' s care MASD in folds of both breasts extending into both R and L axillae. Skin is grossly erythematous and moist. Mild odor noted. Abd folds are clean and dry. Multiple resolving skin tears that are dry and scabbed both upper extremities. Non-blanching erythema without induration sacrum. Dry scabbed wound noted just inferior to R knee . On lindsay R tibia is an elongated scabbed wound with surrounding erythema which extends to lindsay,lateral,posterior R tibia and distally into R foot.RLE and R foot slightly swollen and Skin temp is elevated. No odor or exudate noted from wound. Non-blanching erythema without fluctuance R and L heels. Tx.Plan: Wash both breasts with soap and water. Pat dry. Apply Light dusting of Phytoplex Antifungal powder Twice Daily. Apply Moisture Barrier Paste to Sacrum. Cover with Optifoam drsg. Change every 3 days and prn. Swab Wound R tibia with Betadine. Cover with Optifoam drsg Daily and prn. Apply Cavilon Skin Barrier to both heels. Cover each heel with Optifoam drsg. Change every 7 days and prn. Reposition at least every 2hours or as tolerated. Off-load heels with Pillow. DAILY ESTIMATED NEEDS: Needs based on Pulmonary 53.9kg abw 25-30 kcals/kg 3840-9763 total kcals 1-1.5 g protein/kg 54-81 g total protein 25-30 mL/kg 2351-5848 total fluid mLs NUTRITION DIAGNOSIS: Swallowing/ chewing difficulties r/t psych history/ poor dentition as evidenced by pt is edentulous, on ms finely chopped diet diet, variable po intake. CURRENT DIET: Low Na ms finely chopped PO DIET RECOMMENDATIONS: Regular diet/ texture per [employer] INVESTIGATOR ADDITIONAL RECOMMENDATIONS: 1) Obtain a calibrated bed scale wt 2) Per MD h/o DM, rec accuchecks for eval, need for ssi 3) Add Ensure qd w/ current variable po intake 4) As able, hold psych meds/ sedatives w/ meal time Ramo Simms Jul 18, 2019 14:51
[2019-07-18 16:00] VITALS: BP 114/76
--- NOTE | 2019-07-18 18:17 | NUR ---
NURSE NOTES: recvd clearance from cardio Dr Gruber, awaiting clearance from psych and ID
[2019-07-18 20:00] VITALS: BP 123/57
[2019-07-18] MEDS: Sennosides 8.6mg tab ORAL SCH (20:52)
[2019-07-19] VITALS: BP 118/57
[2019-07-19] MEDS: Zolpidem 5mg tab ORAL PRN (01:03)
[2019-07-19 04:20] VITALS: BP 143/73
[2019-07-19] MEDS: dilTIAZem HCl 30mg tab ORAL SCH ×2 (06:36→13:21)
[2019-07-19 07:16] LABS: ANION GAP 3 mmol/L (5-15); BLOOD UREA NITROGEN 11 mg/dL (7-18); CARBON DIOXIDE 35 MMOL/L (21-32); CHLORIDE 98 MMOL/L (98-107); CREATININE 0.7 MG/DL (0.55-1.30); POTASSIUM 4.8 MMOL/L (3.5-5.1); SODIUM 136 MMOL/L (136-145)
--- NOTE | 2019-07-19 07:30 | NUR ---
NURSE NOTES: Received pt from PEYMAN RN. Pt is sleeping, pt has NC 2LMP. pt has intact iv access JOSE 22G SL. Pt is on continues heart monitoring. all needs attended, bed is locked and is in the lowest position, call light within easy reach. will continue to monitor.
[2019-07-19 07:34] LABS: BASOPHILS % (AUTO) 1.4 % (0.0-2.0); EOSINOPHILS % (AUTO) 4.6 % (0.0-3.0); HEMATOCRIT 38.2 % (37.0-47.0); HEMOGLOBIN 12.2 G/DL (12.0-16.0); MEAN CORPUSCULAR VOLUME 86 FL (80-99); MONOCYTES % (AUTO) 6.5 % (1.0-10.0); NEUTROPHILS % (AUTO) 64.5 % (45.0-75.0); PLATELET COUNT 581 K/UL (150-450); RED BLOOD COUNT 4.43 M/UL (4.20-5.40); RED CELL DISTRIBUTION WIDTH 14.7 % (11.6-14.8); WHITE BLOOD COUNT 7.1 K/UL (4.8-10.8)
--- NOTE | 2019-07-19 07:36 | NUR ---
report given to charge nurse Karine MICHAEL
[2019-07-19 08:32] VITALS: BP 123/78
[2019-07-19] MEDS: Digoxin 0.125mg tab ORAL SCH (09:15)
[2019-07-19] MEDS: Docusate 250mg cap ORAL SCH (09:15)
[2019-07-19] MEDS: OLANZapine 10mg tab ORAL SCH ×2 (09:15→18:00)
[2019-07-19] MEDS: QUEtiapine 200mg tab ORAL SCH ×3 (09:15→18:00)
[2019-07-19] MEDS: Multivitamin w/Minerals tab ORAL SCH (09:15)
[2019-07-19] MEDS: Nuedexta Capsule 20/10mg ORAL SCH (09:16)
[2019-07-19] MEDS: Benztropine 1mg tab ORAL SCH ×2 (09:16→18:00)
[2019-07-19] MEDS: Aspirin EC 81mg tab ORAL SCH (09:16)
[2019-07-19] MEDS: Heparin 5000 units/ml inj SUBQ SCH (09:18)
--- NOTE | 2019-07-19 09:39 | NUR ---
DISCHARGE PLANNING PATIENT IS FROM: [facility] (LOCKED [facility]) [address] [place] [address] T: [phone] F: [phone] CALLED [facility]" AND SPOKE WITH SLP TEACHER, ESTEBAN. PER ESTEBAN PATIENT IS WELCOME TO RETURN UPON DISCHARGE Addendum: 07/19/19 at 0984 by MICHELLE SHANE LVN LVN FAXED CLINICALS TO [facility]
--- NOTE | 2019-07-19 10:05 | NUR ---
NURSE NOTES: SPOKE WITH DR GRANADOS AND ORDERED RECEIVED CLEAR FOR DISCHARGE
--- NOTE | 2019-07-19 10:35 | NUR ---
NURSE NOTES: SPOKE WITH DR STACY IN REGARDS TO [facility], CLEARED BY CARDIO, ID AND PSYCH.
--- NOTE | 2019-07-19 10:50 | General Progress Note ---
Assessment/Plan Problem List: (1) Sepsis ICD Codes: A41.9 - Sepsis, unspecified organism SNOMED: 19940581 (2) Leukocytosis ICD Codes: D72.829 - Elevated white blood cell count, unspecified SNOMED: 319302583, 013570496 (3) New onset a-fib ICD Codes: I48.91 - Unspecified atrial fibrillation SNOMED: 55192392 (4) Cellulitis ICD Codes: L03.90 - Cellulitis, unspecified SNOMED: 254443541 Qualifiers: Qualified Codes: L03.115 - Cellulitis of right lower limb (5) Anemia ICD Codes: D64.9 - Anemia, unspecified SNOMED: 398890250 Status: stable, progressing Assessment/Plan: o2pulm tx abx wound care cardio f/u dc w hh if clear Subjective Constitutional: Reports: weakness Allergies: Coded Allergies: BUPROPION (Verified Allergy, Unknown, 07/12/19) BUSPIRONE (Verified Allergy, Unknown, 07/12/19) FLUOXETINE (Verified Allergy, Unknown, 07/12/19) LURASIDONE (Verified Allergy, Unknown, 07/12/19) All Systems: reviewed and negative except above Subjective o2nc calm in bed Objective Last 24 Hour Vital Signs Date Time Temp Pulse Resp B/P (MAP) Pulse Ox O2 Delivery O2 Flow Rate FiO2 07/19/19 09:15 80 07/19/19 09:00 Nasal Cannula 2.0 07/19/19 08:32 97.2 80 19 123/78 (93) 100 07/19/19 07:45 86 07/19/19 06:56 83 18 97 Nasal Cannula 2.0 28 07/19/19 06:55 82 18 97 Nasal Cannula 2.0 28 07/19/19 06:55 97 Nasal Cannula 2.0 28 07/19/19 06:36 80 143/73 07/19/19 04:20 97.2 80 19 143/73 (96) 96 07/19/19 04:00 76 07/19/19 03:28 Nasal Cannula 2.0 28 07/19/19 03:28 Nasal Cannula 2.0 28 07/19/19 03:28 97 Nasal Cannula 2.0 28 07/19/19 00:00 97.1 78 19 118/57 (77) 96 3/24/20 00:00 84 07/18/19 21:00 Nasal Cannula 2.0 07/18/19 20:52 108 114/76 07/18/19 20:00 78 07/18/19 20:00 97.6 78 19 123/57 (79) 96 07/18/19 16:00 108 07/18/19 16:00 97.6 88 19 114/76 (89) 96 07/18/19 14:28 88 115/58 07/18/19 12:00 88 07/18/19 12:00 96.3 87 19 115/58 (77) 100 Intake and Output 07/18/19 07/19/19 19:00 07:00 Intake Total 120 ml Output Total 1800 ml Balance -1680 ml Intake Oral 120 ml Output Urine Total 1800 ml # Voids 3 5 Laboratory Tests 07/19/19 06:42: White Blood Count 7.1, Red Blood Count 4.43, Hemoglobin 12.2, Hematocrit 38.2, Mean Corpuscular Volume 86, Mean Corpuscular Hemoglobin 27.5, Mean Corpuscular Hemoglobin Concent 31.9L, Red Cell Distribution Width 14.7, Platelet Count 581H , Mean Platelet Volume 5.3L, Neutrophils (%) (Auto) 64.5, Lymphocytes (%) (Auto ) 23.0, Monocytes (%) (Auto) 6.5, Eosinophils (%) (Auto) 4.6H, Basophils (%) ( Auto) 1.4, Sodium Level 136, Potassium Level 4.8, Chloride Level 98, Carbon Dioxide Level 35H, Anion Gap 3L, Blood Urea Nitrogen 11, Creatinine 0.7, Estimat Glomerular Filtration Rate > 60, Glucose Level 94, Calcium Level 10.0 Height (Feet): 5 Height (Inches): 2.00 Weight (Pounds): 144 General Appearance: lethargic EENT: normal ENT inspection Neck: normal alignment Cardiovascular: normal peripheral pulses, normal rate, regular rhythm Respiratory/Chest: chest wall non-tender, lungs clear, normal breath sounds Abdomen: normal bowel sounds, non tender, soft Extremities: normal inspection Edema: no edema noted Arm (L), no edema noted Arm (R), no edema noted Leg (L), no edema noted Leg (R), no edema noted Pedal (L), no edema noted Pedal (R), no edema noted Generalized Neurologic: motor weakness Skin: normal pigmentation, warm/dry Objective r smith dressing c&Guy Fischer DO Jul 19, 2019 10:50
--- NOTE | 2019-07-19 11:19 | Infectious Diseases Prog Note ---
Assessment/Plan Assessment/Plan ASSESSMENT: The patient is a 74-year-old female with: Leukocytosis, sp SP Sepsis. Right lower extremity cellulitis, Sp Rule out bacteremia. Rule out probable urinary tract infection. History of COPD. Heart failure. Hypertension. Diabetes. Parkinson disease. Hyperlipidemia. Arthritis. GERD. Anemia. Primary schizophrenia. Anxiety. Osteoporosis. PLAN: monitor off of AB Rx - IV vancomycin and Rocephin # 7/7 CBC and BMP. ok to DC form ID stand point, off of AB Rx Subjective Allergies: Coded Allergies: BUPROPION (Verified Allergy, Unknown, 07/12/19) BUSPIRONE (Verified Allergy, Unknown, 07/12/19) FLUOXETINE (Verified Allergy, Unknown, 07/12/19) LURASIDONE (Verified Allergy, Unknown, 07/12/19) Subjective comfortable Objective Vital Signs Last 24 Hour Vital Signs Date Time Temp Pulse Resp B/P (MAP) Pulse Ox O2 Delivery O2 Flow Rate FiO2 07/19/19 09:15 80 07/19/19 09:00 Nasal Cannula 2.0 07/19/19 08:32 97.2 80 19 123/78 (93) 100 07/19/19 07:45 86 07/19/19 06:56 83 18 97 Nasal Cannula 2.0 28 07/19/19 06:55 82 18 97 Nasal Cannula 2.0 28 07/19/19 06:55 97 Nasal Cannula 2.0 28 07/19/19 06:36 80 143/73 07/19/19 04:20 97.2 80 19 143/73 (96) 96 07/19/19 04:00 76 07/19/19 03:28 Nasal Cannula 2.0 28 07/19/19 03:28 Nasal Cannula 2.0 28 07/19/19 03:28 97 Nasal Cannula 2.0 28 07/19/19 00:00 97.1 78 19 118/57 (77) 96 07/19/19 00:00 84 07/18/19 21:00 Nasal Cannula 2.0 07/18/19 20:52 108 114/76 07/18/19 20:00 78 07/18/19 20:00 97.6 78 19 123/57 (79) 96 07/18/19 16:00 108 07/18/19 16:00 97.6 88 19 114/76 (89) 96 07/18/19 14:28 88 115/58 07/18/19 12:00 88 07/18/19 12:00 96.3 87 19 115/58 (77) 100 Height (Feet): 5 Height (Inches): 2.00 Weight (Pounds): 144 HEENT: anicteric Respiratory/Chest: no respiratory distress Cardiovascular: regularly irregular Abdomen: non distended Laboratory Tests Test 07/19/19 06:42 White Blood Count 7.1 K/UL (4.8-10.8) Red Blood Count 4.43 M/UL (4.20-5.40) Hemoglobin 12.2 G/DL (12.0-16.0) Hematocrit 38.2 % (37.0-47.0) Mean Corpuscular Volume 86 FL (80-99) Mean Corpuscular Hemoglobin 27.5 PG (27.0-31.0) Mean Corpuscular Hemoglobin Concent 31.9 G/DL (32.0-36.0) L Red Cell Distribution Width 14.7 % (11.6-14.8) Platelet Count 581 K/UL (150-450) H Mean Platelet Volume 5.3 FL (6.5-10.1) L Neutrophils (%) (Auto) 64.5 % (45.0-75.0) Lymphocytes (%) (Auto) 23.0 % (20.0-45.0) Monocytes (%) (Auto) 6.5 % (1.0-10.0) Eosinophils (%) (Auto) 4.6 % (0.0-3.0) H Basophils (%) (Auto) 1.4 % (0.0-2.0) Sodium Level 136 MMOL/L (136-145) Potassium Level 4.8 MMOL/L (3.5-5.1) Chloride Level 98 MMOL/L (98-107) Carbon Dioxide Level 35 MMOL/L (21-32) H Anion Gap 3 mmol/L (5-15) L Blood Urea Nitrogen 11 mg/dL (7-18) Creatinine 0.7 MG/DL (0.55-1.30) Estimat Glomerular Filtration Rate > 60 mL/min (>60) Glucose Level 94 MG/DL (74-106) Calcium Level 10.0 MG/DL (8.5-10.1) Current Medications Medications (Trade) Dose Ordered Sig/Sundeep Route PRN Reason Start Time Stop Time Status Last Admin Dose Admin Aspirin (Ecotrin) 81 mg DAILY ORAL 07/13/19 09:00 08/27/19 08:59 07/19/19 09:16 Benztropine Mesylate (Cogentin) 1 mg BID ORAL 07/12/19 18:00 08/11/19 17:59 07/19/19 09:16 Budesonide/ Formoterol Fumarate (Symbicort 160/ 4.5) 1 puff BIDRT INH 07/12/19 22:00 10/10/19 21:59 07/19/19 06:55 Clonidine HCl (Catapres Tab) 0.1 mg Q6H PRN ORAL SBP > 160mmHg 07/12/19 17:00 10/10/19 16:59 Dextromethorphan/ Quinidine (Nuedexta Capsule) 1 cap DAILY ORAL 07/13/19 09:00 10/11/19 08:59 07/19/19 09:16 Digoxin (Lanoxin) 0.125 mg DAILY ORAL 07/14/19 09:00 10/12/19 08:59 07/19/19 09:15 Diltiazem HCl (Cardizem) 30 mg EVERY 8 HOURS ORAL 07/13/19 14:00 08/12/19 13:59 07/19/19 06:36 Docusate Sodium (Colace) 250 mg DAILY ORAL 07/13/19 09:00 08/12/19 08:59 07/19/19 09:15 Famotidine (Pepcid) 20 mg DAILY ORAL 07/13/19 09:00 10/11/19 08:59 07/19/19 09:16 Ferrous Sulfate (Feosol) 325 mg DAILY ORAL 07/13/19 09:00 10/11/19 08:59 07/19/19 09:15 Gabapentin (Neurontin) 100 mg Q8HR ORAL 07/12/19 22:00 08/11/19 21:59 07/19/19 06:36 Heparin Sodium (Porcine) (Heparin 5000 units/ml) 5,000 units EVERY 12 HOURS SUBQ 07/12/19 21:00 08/26/19 20:59 07/19/19 09:18 Lorazepam (Ativan) 1 mg Q6H PRN ORAL For Anxiety 07/12/19 17:00 07/19/19 16:59 07/18/19 03:27 Morphine Sulfate (Morphine Sulfate) 2 mg Q4H PRN IVP PAIN 4-10 07/12/19 17:00 07/19/19 16:59 Multivitamins Therapeutic (Therapeutic Multivitamin) 1 ea DAILY ORAL 07/13/19 09:00 08/12/19 08:59 07/19/19 09:15 Olanzapine (ZyPREXA) 10 mg BID ORAL 07/15/19 09:00 08/29/19 08:59 07/19/19 09:15 Olanzapine (ZyPREXA) 10 mg QHS ORAL 07/12/19 21:00 08/26/19 20:59 07/15/19 21:13 Quetiapine Fumarate (SEROqueL) 200 mg TID ORAL 07/15/19 18:00 08/29/19 17:59 07/19/19 09:15 Risperidone (RisperDAL) 3 mg Q12HR ORAL 07/12/19 21:00 08/26/19 20:59 07/19/19 09:15 Sennosides (Senokot) 8.6 mg BEDTIME ORAL 07/12/19 21:00 08/11/19 20:59 07/18/19 20:52 Zolpidem Tartrate (Ambien) 5 mg HSPRN PRN ORAL Insomnia 07/12/19 22:15 07/19/19 22:14 07/19/19 01:03 Ryan Bryan MD Jul 19, 2019 11:19
[2019-07-19 12:00] VITALS: BP 125/74
--- NOTE | 2019-07-19 12:00 | Cardiac Electrophysiology PN ---
Assessment/Plan Assessment/Plan 1. Hypertension. On Cardizem 30 q 8 and p.r.n. clonidine 2. PAF. In SR on Dig and Cardizem. Keep off anticoagulation for fall risk 3. Lower extremity cellulitis and sepsis, on antibiotic per ID. WBC down 21 to 11K 4. History of congestive heart failure. Echocardiogram EF 65% and troponin negative 5. Psychosis, on Risperdal. DW RN Subjective Subjective Remained in SR with occasional PAC's. No more atrial fib. Going to [facility] today Objective Last 24 Hour Vital Signs Date Time Temp Pulse Resp B/P (MAP) Pulse Ox O2 Delivery O2 Flow Rate FiO2 07/19/19 09:15 80 07/19/19 09:00 Nasal Cannula 2.0 07/19/19 08:32 97.2 80 19 123/78 (93) 100 07/19/19 07:45 86 07/19/19 06:56 83 18 97 Nasal Cannula 2.0 28 07/19/19 06:55 82 18 97 Nasal Cannula 2.0 28 07/19/19 06:55 97 Nasal Cannula 2.0 28 07/19/19 06:36 80 143/73 07/19/19 04:20 97.2 80 19 143/73 (96) 96 07/19/19 04:00 76 07/19/19 03:28 Nasal Cannula 2.0 28 07/19/19 03:28 Nasal Cannula 2.0 28 07/19/19 03:28 97 Nasal Cannula 2.0 28 07/19/19 00:00 97.1 78 19 118/57 (77) 96 07/19/19 00:00 84 07/18/19 21:00 Nasal Cannula 2.0 07/18/19 20:52 108 114/76 07/18/19 20:00 78 07/18/19 20:00 97.6 78 19 123/57 (79) 96 07/18/19 16:00 108 07/18/19 16:00 97.6 88 19 114/76 (89) 96 07/18/19 14:28 88 115/58 07/18/19 12:00 88 07/18/19 12:00 96.3 87 19 115/58 (77) 100 Intake and Output 07/18/19 07/19/19 19:00 07:00 Intake Total 120 ml Output Total 1800 ml Balance -1680 ml Intake Oral 120 ml Output Urine Total 1800 ml # Voids 3 5 Laboratory Tests Test 07/19/19 06:42 White Blood Count 7.1 K/UL (4.8-10.8) Red Blood Count 4.43 M/UL (4.20-5.40) Hemoglobin 12.2 G/DL (12.0-16.0) Hematocrit 38.2 % (37.0-47.0) Mean Corpuscular Volume 86 FL (80-99) Mean Corpuscular Hemoglobin 27.5 PG (27.0-31.0) Mean Corpuscular Hemoglobin Concent 31.9 G/DL (32.0-36.0) L Red Cell Distribution Width 14.7 % (11.6-14.8) Platelet Count 581 K/UL (150-450) H Mean Platelet Volume 5.3 FL (6.5-10.1) L Neutrophils (%) (Auto) 64.5 % (45.0-75.0) Lymphocytes (%) (Auto) 23.0 % (20.0-45.0) Monocytes (%) (Auto) 6.5 % (1.0-10.0) Eosinophils (%) (Auto) 4.6 % (0.0-3.0) H Basophils (%) (Auto) 1.4 % (0.0-2.0) Sodium Level 136 MMOL/L (136-145) Potassium Level 4.8 MMOL/L (3.5-5.1) Chloride Level 98 MMOL/L (98-107) Carbon Dioxide Level 35 MMOL/L (21-32) H Anion Gap 3 mmol/L (5-15) L Blood Urea Nitrogen 11 mg/dL (7-18) Creatinine 0.7 MG/DL (0.55-1.30) Estimat Glomerular Filtration Rate > 60 mL/min (>60) Glucose Level 94 MG/DL (74-106) Calcium Level 10.0 MG/DL (8.5-10.1) Objective HEAD AND NECK: No JVD. LUNGS: Clear. CARDIOVASCULAR: Regular, S1 and S2 with no gallop or murmur. ABDOMEN: Soft. EXTREMITIES: No pitting edema except for cellulitis of the legs. Derek Salcido MD Jul 19, 2019 12:00
[2019-07-19] MEDS ORDERED: CARDIZEM30 M1 PO (12:26)
[2019-07-19] MEDS ORDERED: ZYPREXA10 MG ORAL (12:27)
[2019-07-19] MEDS ORDERED: QUETIAPINE FUM400 MG ORAL (12:28)
[2019-07-19] MEDS ORDERED: ZOLPIDEM TARTRAT5 MG ORAL (12:29)
[2019-07-19] MEDS ORDERED: DIGOXIN0.125 MG/2 ORAL (12:31)
--- NOTE | 2019-07-19 12:35 | Surgery Progress Note ---
Surgery Progress Note Subjective Additional Comments comfortable appearing not coherent threw her food table agitated at times Objective Last 24 Hour Vital Signs Date Time Temp Pulse Resp B/P (MAP) Pulse Ox O2 Delivery O2 Flow Rate FiO2 07/19/19 09:15 80 07/19/19 09:00 Nasal Cannula 2.0 07/19/19 08:32 97.2 80 19 123/78 (93) 100 07/19/19 07:45 86 07/19/19 06:56 83 18 97 Nasal Cannula 2.0 28 07/19/19 06:55 82 18 97 Nasal Cannula 2.0 28 07/19/19 06:55 97 Nasal Cannula 2.0 28 07/19/19 06:36 80 143/73 07/19/19 04:20 97.2 80 19 143/73 (96) 96 07/19/19 04:00 76 07/19/19 03:28 Nasal Cannula 2.0 28 07/19/19 03:28 Nasal Cannula 2.0 28 07/19/19 03:28 97 Nasal Cannula 2.0 28 07/19/19 00:00 97.1 78 19 118/57 (77) 96 07/19/19 00:00 84 07/18/19 21:00 Nasal Cannula 2.0 07/18/19 20:52 108 114/76 07/18/19 20:00 78 07/18/19 20:00 97.6 78 19 123/57 (79) 96 07/18/19 16:00 108 07/18/19 16:00 97.6 88 19 114/76 (89) 96 07/18/19 14:28 88 115/58 I&O Intake and Output 07/18/19 07/19/19 19:00 07:00 Intake Total 120 ml Output Total 1800 ml Balance -1680 ml Intake Oral 120 ml Output Urine Total 1800 ml # Voids 3 5 Dressing: dry Wound: clean Cardiovascular: RSR Respiratory: clear Abdomen: soft, non-tender, present bowel sounds Extremities: no tenderness, no cyanosis, other Laboratory Tests Test 07/19/19 06:42 White Blood Count 7.1 K/UL (4.8-10.8) Red Blood Count 4.43 M/UL (4.20-5.40) Hemoglobin 12.2 G/DL (12.0-16.0) Hematocrit 38.2 % (37.0-47.0) Mean Corpuscular Volume 86 FL (80-99) Mean Corpuscular Hemoglobin 27.5 PG (27.0-31.0) Mean Corpuscular Hemoglobin Concent 31.9 G/DL (32.0-36.0) L Red Cell Distribution Width 14.7 % (11.6-14.8) Platelet Count 581 K/UL (150-450) H Mean Platelet Volume 5.3 FL (6.5-10.1) L Neutrophils (%) (Auto) 64.5 % (45.0-75.0) Lymphocytes (%) (Auto) 23.0 % (20.0-45.0) Monocytes (%) (Auto) 6.5 % (1.0-10.0) Eosinophils (%) (Auto) 4.6 % (0.0-3.0) H Basophils (%) (Auto) 1.4 % (0.0-2.0) Sodium Level 136 MMOL/L (136-145) Potassium Level 4.8 MMOL/L (3.5-5.1) Chloride Level 98 MMOL/L (98-107) Carbon Dioxide Level 35 MMOL/L (21-32) H Anion Gap 3 mmol/L (5-15) L Blood Urea Nitrogen 11 mg/dL (7-18) Creatinine 0.7 MG/DL (0.55-1.30) Estimat Glomerular Filtration Rate > 60 mL/min (>60) Glucose Level 94 MG/DL (74-106) Calcium Level 10.0 MG/DL (8.5-10.1) Plan Problems: (1) Cellulitis Assessment & Plan: This is a 74-year-old female with multiple medical comorbidities and psych history who presents with right lower extremity cellulitis potentially secondary to trauma. Patient identified to have multiple scabs and superficial open wounds on her right anterior tibial lower extremity potentially seemingly from hitting it against the bedpost. Patient states that there was something sharp in her bed she kept trying to kick at it. She is not very reliable when it comes to history. Wound evaluated, significant leukocytosis on antibiotics as per infectious disease, imaging noted No acute debridement or surgical invention indicated at this time. Cellulitis seemingly improving. Leukocytosis improving Continue with IV antibiotics Wash wounds daily with normal saline, apply bacitracin and nonadherent foam dressing Physical therapy gait eval Nutritional optimization We will follow with recommendations thank you for let me participate in patient' s care MASD in folds of both breasts extending into both R and L axillae. Skin is grossly erythematous and moist. Mild odor noted. Abd folds are clean and dry. Multiple resolving skin tears that are dry and scabbed both upper extremities. Non-blanching erythema without induration sacrum. Dry scabbed wound noted just inferior to R knee . On lindsay R tibia is an elongated scabbed wound with surrounding erythema which extends to lindsay,lateral,posterior R tibia and distally into R foot.RLE and R foot slightly swollen and Skin temp is elevated. No odor or exudate noted from wound. Non-blanching erythema without fluctuance R and L heels. cellulitis improved dry scab formed healing Tx.Plan: Wash both breasts with soap and water. Pat dry. Apply Light dusting of Phytoplex Antifungal powder Twice Daily. Apply Moisture Barrier Paste to Sacrum. Cover with Optifoam drsg. Change every 3 days and prn. Swab Wound R tibia with Betadine. Cover with Optifoam drsg Daily and prn. Apply Cavilon Skin Barrier to both heels. Cover each heel with Optifoam drsg. Change every 7 days and prn. Reposition at least every 2hours or as tolerated. Off-load heels with Pillow. DAILY ESTIMATED NEEDS: Needs based on Pulmonary 53.9kg abw 25-30 kcals/kg 8049-0030 total kcals 1-1.5 g protein/kg 54-81 g total protein 25-30 mL/kg 7345-0968 total fluid mLs NUTRITION DIAGNOSIS: Swallowing/ chewing difficulties r/t psych history/ poor dentition as evidenced by pt is edentulous, on ms finely chopped diet diet, variable po intake. CURRENT DIET: Low Na ms finely chopped PO DIET RECOMMENDATIONS: Regular diet/ texture per DIVISION CHAIR ADDITIONAL RECOMMENDATIONS: 1) Obtain a calibrated bed scale wt 2) Per MD h/o DM, rec accuchecks for eval, need for ssi 3) Add Ensure qd w/ current variable po intake 4) As able, hold psych meds/ sedatives w/ meal time Ramo Simms Jul 19, 2019 12:35
[2019-07-19] MEDS: LORazepam 1mg tab ORAL PRN (13:20)
--- NOTE | 2019-07-19 13:50 | NUR ---
*-*DISCHARGE PLANNED*-* PATIENT HAS BEEN ACCEPTED AND WILL BE DIS[facility]GED BACK [facility] T: [phone] ROOM# [id number] [facility] ARRANGED FOR 5:30PM/ 1730 S/W WILNER
[2019-07-19 15:59] VITALS: BP 144/89
--- NOTE | 2019-07-19 17:29 | NUR ---
NURSE NOTES: Pt has discharge order, all D/C assessments and instructions done. pt is stable, V/S stable, all belongings checked with RN and are with pt, pt's son ASHOK is aware about D/C, report given to [facility], Dr PHILLIPS visited pt and cleared pt to D/C, All wound care done as order and took pictures and uploaded. waiting for ambulance to pick pt up. will continue to monitor.
--- NOTE | 2019-07-19 18:21 | NUR ---
NURSE NOTES: pt is stable, V/S stable, all belongings are with pt, pt left hospital with accompany of ambulance personnel.
--- NOTE | 2019-07-19 23:00 | Progress Note ---
DATE: 07/19/2019 SUBJECTIVE: This is a 74-year-old female patient with cellulitis of right lower extremity, but she still has some altered mental status, confusion, agitation, extreme mood lability, and hostility as well as requested daily psychiatric consultation increased mood lability secondary to stress of her medical illness. MENTAL STATUS EXAMINATION: This is a 74-year-old female. Her appearance is disheveled. Attitude, irritable and agitated. Affect, guarded and restricted. Intellect poor. Mood, depressed and anxious. Motor activity, psychomotor agitation. Attention span is poor. Orientation x2. Speech is pressured, nonsensical. Thought process, disorganized and illogical. Insight and judgment is poor. DIAGNOSIS: Paranoid schizophrenia with acute exacerbation. PLAN: I am going to continue on Haldol Decanoate once a month. I am also going to continue her on Risperdal 3 mg twice a day, Zyprexa 10 mg twice a day and 10 nightly, Seroquel 200 mg three times a day. Twenty minutes of cognitive behavioral therapy to help her identify automatic negative thoughts and help her convert her negative thoughts to more positive thoughts to reduce depression, anxiety, mood lability. Twenty minutes of cognitive behavioral therapy provided. She is psychiatrically cleared for discharge. Rut Warren M.D. DR: LIZETH JOB#: [id number] CC:
--- NOTE | 2019-07-21 08:49 | Discharge Summary ---
Discharge Summary Discharge Summary _ DATE OF ADMISSION: 07/12/2019 DATE OF DISCHARGE: 07/19/2019 DISCHARGED BY: Dr. Booth REASON FOR ADMISSION: 74 years old female with past medical history of cellulitis left lower extremity , COPD, hypertension, diabetes mellitus, hyperlipidemia, Parkinson disease, arthritis, GERD, anemia, paranoid schizophrenia, anxiety, chronic kidney disease , was brought from the senior care facility due to right lower extremity swelling and leukocytosis. Patient by herself was a poor historian and unable to provide any history. Upon evaluation vital signs showed no fevers. Laboratory work-up revealed significant leukocytosis WBC 21.6, hemoglobin 10, hematocrit 30.6, platelet count 367. Lactic acid 0.9. Stable electrolytes. BUN 14, creatinine 0.7. Glucose 114. Stable LFT. EKG revealed atrial fibrillation with rapid ventricular response, heart rate 116. Chest x-ray was negative for infiltrate. Venous duplex bilateral lower extremity revealed no evidence of acute DVT. In emergency department blood cultures were obtained. Patient started on empiric antibiotics . Patient received Cardizem IV. Patient received anxiolytic . Patient subsequently admitted for further management. CONSULTANTS: stitcher set up operator automatic Dr. Belcher ID specialist Dr. Bryan surgery Dr. Simms psychiatrist Dr. Warren [facility] COURSE: Patient admitted to telemetry floor. Bog Worker followed. Patient spontaneously converted to sinus rhythm. Heart rate was controlled with digoxin and Cardizem. Per cardiology , patient was kept off anticoagulation given the fall risk. Blood pressure was managed with Cardizem. Clonidine was on board as needed for blood pressure spikes. Echocardiogram revealed preserved ejection fraction. Troponin was negative. Antibiotic further continued as per ID specialist recommendation. Blood cultures were negative. Patient completed 7 days of vancomycin and Rocephin. Leukocytosis resolved. No fevers. ID specialist recommended to keep patient off antibiotics. Patient noted to have multiply scabs and superficial open wounds in the right anterior tibial lower extremity, potentially from hitting against the bedpost. Patient was not a reliable historian. Surgeon evaluated the wounds. No acute debridement or surgical intervention was indicated at this time. Cellulitis was improving with medical management. Wound care provided as per surgeon recommendation . Continue wound care at the facility. Patient was continued with inhaler / Symbicort. Pulse oximetry remained stable on room air. Pulmonary toilet with bronchodilator was on board as needed. GI prophylaxis provided. Bowel regimen instituted. Psychiatrist closely followed. Per psychiatrist, patient had paranoid schizophrenia with acute exacerbation. Psychiatric medication regimen was optimized as per psychiatrist. Cognitive behavioral therapy provided. Placement was arranged to the locked senior care facility/ [facility]. Patient was stable for discharge. FINAL DIAGNOSES: Sepsis Right lower extremity cellulitis New onset of atrial fibrillation Paroxysmal atrial fibrillation Hypertension History of congestive heart failure Paranoid schizophrenia with acute exacerbation History of COPD DISCHARGE MEDICATIONS: See Medication Reconciliation list. DISCHARGE INSTRUCTIONS: Patient was discharged to the senior care facility . Follow-up with the medical provider at the facility. I have been assigned to dictate discharge summary for this account. I was not involved in the patient's management. Chantal Cueva NP Jul 21, 2019 08:49
== END 2019-07-19 18:24 | DRG 872 ==
LOC: EDBD 12:20 → EDBEDREQ 12:54 → EMR 13:01 → 2E 13:54 → EDBEDREQ 14:04 → EDBEDREQSVC 14:04 → EDBEDREQ 14:58 → 2E 16:18
DX: A41.9 Sepsis, unspecified organism (principal); L03.115 Cellulitis of right lower limb; I13.0 Hypertensive heart and chronic kidney disease with heart failure and stage 1 through stage 4 chronic kidney disease, or unspecified chronic kidney disease; E46 Unspecified protein-calorie malnutrition; F20.0 Paranoid schizophrenia; E11.22 Type 2 diabetes mellitus with diabetic chronic kidney disease; N18.9 Chronic kidney disease, unspecified; Z68.26 Body mass index [BMI] 26.0-26.9, adult; G20 Parkinson's disease; D64.9 Anemia, unspecified; K21.9 Gastro-esophageal reflux disease without esophagitis; E78.5 Hyperlipidemia, unspecified; M19.90 Unspecified osteoarthritis, unspecified site; M81.0 Age-related osteoporosis without current pathological fracture; Z88.6 Allergy status to analgesic agent; Z88.8 Allergy status to other drugs, medicaments and biological substances; Z79.82 Long term (current) use of aspirin; I48.0 Paroxysmal atrial fibrillation; F29 Unspecified psychosis not due to a substance or known physiological condition
CPT/HCPCS: 36415; 71045; 80048; 80053; 80162; 80202; 82550; 82553; 82962; 83605; 83735; 84484; 85007; 85025; 85610; 85651; 85730; 86140; 87040; 87081; 93005; 93306; 93971; 94640; 96365; 96368; 96372; 96375; 97803; 99285